=== PATIENT | male | born 1945 | race Caucasian/White ===

== ENCOUNTER 2020-02-03 14:24 | Outpatient (CLI) | payer MEDICARE, SELFPAY ==
--- NOTE | ~2020-02-03 | XR_ITS ---
EXAMINATION: XR foot LT min 3V DATE: 02/03/2020 14:39 INDICATION: Left first toe pain TECHNIQUE: Dorsoplantar, lateral, and 2 oblique views of the left foot were obtained. COMPARISON: None. FINDINGS: The bones are osteopenic which limits the sensitivity for fracture however none is seen. Th ere is mild polyarticular osteoarthritis. Mild soft tissue swelling is seen near the fifth toe. A uhmberto ntar calcaneal enthesophyte is noted. IMPRESSION: 1. No acute osseous abnormality. Reviewed, dictated and finalized at location A.
== END 2020-02-03 14:25 | disposition home or self-care (01) ==
LOC: ANHIMG 14:29
PROVIDERS: PCP Internal Medicine; Visit Provider Internal Medicine
DX: M79.676 Pain in unspecified toe(s) (principal)
CPT/HCPCS: 73630

== ENCOUNTER 2020-06-15 19:06 | Emergency (ER) | payer MEDICARE, SELFPAY ==
[2020-06-15] VITALS (7 sets, daily range): BP systolic 90–117; BP diastolic 51–60; PULSE 75–92; RESP 16–18; TEMP 36.7; O2SAT 99–100
--- NOTE | ~2020-06-15 | XR_ITS ---
EXAMINATION: XR chest 2V 06/15/2020 19:58 INDICATION: Syncope. PROCEDURE: 2 view chest COMPARISON: No prior studies for comparison. FINDINGS: The lungs are clear. The cardiomediastinal silhouette is within normal limits. There are no pleural effusions. There is no pneumothorax suspected. IMPRESSION: 1: NO ACUTE CARDIOPULMONARY DISEASE. Reviewed, dictated and finalized at location A.
[2020-06-15] MEDS: SODIUM CHLORIDE 0.9% IV 1,000 ML 999 ML IV CONT (19:37)
--- NOTE | 2020-06-15 19:44 | ECG_ITS ---
Measurements Intervals [place] Rate: 79 P: 48 DC: 169 QRS: 35 QRSD: 145 T: 8 QT: 363 QTc: 416 Interpretive Statements SINUS RHYTHM RIGHT BUNDLE BRANCH BLOCK ABNORMAL ECG Electronically Signed On 06-16-2020 12:19:51 CDT by Dex Dinh D.O.
[2020-06-15 20:05] LABS: Anion Gap 8 mmol/L (8-16); Blood Urea Nitrogen 30 mg/dL (9-20); Calcium 8.5 mg/dL (8.4-10.2); Carbon Dioxide 22 mmol/L (22-30); Chloride 104 mmol/L (98-107); Estimated Glomerular Filt Rate 59; Glucose 113 mg/dL (75-110); Potassium 4.1 mmol/L (3.4-5.0); Sodium 134 mmol/L (137-145)
[2020-06-15 20:32] LABS: Add Urine Microscopic? NO; Appearance Urine Clear (Clear); Bilirubin Urine Negative (Negative); Blood Urine Negative (Negative); Color Urine Yellow (Yellow); Glucose Urine UA Negative (Negative); Ketones Urine Negative (Negative); Leukocyte Esterase Ur Negative LEU/UL (Negative); Nitrate Urine Negative (Negative); Protein Urine Negative (Negative); Specific Grav Ur 1.018 (1.001-1.035); Urobilinogen Urine Negative mg/dL (<2.0)
[2020-06-15 20:59] LABS: Basophils Percent Auto 0.4 % (0.2-1.2); Eosinophils Absolute Auto 0.1 K/mm3 (0-0.3); Eosinophils Percent Auto 1.3 % (0-4.4); Hematocrit 33.5 % (42.0-52.0); Hemoglobin 11.3 g/dL (14.0-18.0); Immature Granulocyte Absolute 0.06 K/mm3 (0.00-0.031); Immature Granulocyte Percent A 0.6 % (0-0.5); Lymphocytes Percent Auto 9.6 % (18.3-44.2); Mean Corpuscular HGB Conc 33.7 g/dl (32-36); Mean Corpuscular Hemoglobin 32.1 pg (26-34); Mean Corpuscular Volume 95.2 fl (80-100); Mean Platelet Volume 10.2 fl (7.4-10.4); Monocytes Absolute Auto 0.8 K/mm3 (0.1-0.6); Monocytes Percent Auto 7.4 % (2.6-8.5); Neutrophils Absolute Auto 8.4 K/mm3 (1.3-6.7); Neutrophils Percent Auto 80.7 % (45.5-73.1); Platelet Count Result 124 k/mm3 (150-375); Red Blood Count 3.52 M/mm3 (4.6-6.20); Red Cell Distribution Width 13.4 % (11.5-14.5); White Blood Count 10.4 K/mm3 (4.5-10.0)
--- NOTE | 2020-06-15 21:16 | ED.SYNCOPE ---
HPI - Syncope General Chief Complaint: Syncope Stated Complaint: syncope Time Seen by Provider: 06/15/20 19:17 History of Present Illness HPI narrative: Patient is a 75-year-old male who presents ER with syncope. Patient was just discharged from [facility] today after having a right knee replacement. Patient has walked into his house when he reported to his that he got lightheaded. Patient then sat on a chair and lost consciousness. This reoccurred further times while sitting in the chair. Patient does not remember this occurring he remembers up waking up to EMS with them telling him that he had passed out. He has no chest pain or shortness of breath. He is in no distress at this time. Reports some right knee pain related to the surgery and he is not taking his pain medication. Today he walked with physical therapy 150 feet and then a second time 120 feet. Reports eating a small meal for breakfast and lunch with a couple of small drinks. Has not had any IV fluids since yesterday. Related Data Allergies Allergy/AdvReac Type Severity Reaction Status Date / Time Penicillins Allergy Unknown Unknown Verified 09/07/19 08:14 BENAZEPRIL HCL Allergy Unknown Uncoded 09/07/19 08:14 TERAZOSIN HCL Allergy Unknown Uncoded 09/07/19 08:14 Review of Systems Review of Systems: All systems reviewed & are unremarkable except as noted in HPI and below Constitutional: Constitutional: Denies chills, Denies fever(s) and Denies weakness ENT: Denies nasal congestion and Denies sore throat Cardiovascular: Cardiovascular: Denies chest pain, Denies rapid heart rate and Denies radiating jaw, neck or arm pain Respiratory: Respiratory: Denies cough, Denies dyspnea and Denies wheezing Neurologic: Reports syncope, Denies headache(s), Denies focal weakness and Denies numbness PMFSH Past Medical History Medical History (Updated 06/15/20 @ 22:35 by Berlin Nye MD) Gout Hypercholesterolemia Hypertension Surgical History Surgical History (Updated 06/15/20 @ 21:18 by Berlin Nye MD) History of total bilateral knee replacement Social History Social History Smoking status: Never smoker Alcohol intake: never Gender identity (if verbalized by the patient): Male Exam Narrative: Exam Narrative: GENERAL: Well-appearing, well-nourished, and in no acute distress. HEAD: Normocephalic, atraumatic. ENT: Mucous membranes moist. CHEST: Clear to auscultation. No respiratory distress. HEART: Regular rate and rhythm. Normal peripheral pulses. ABDOMEN: Soft, nontender, nondistended. EXTREMITIES: Compression stockings bilateral lower extremities with slightly increased edema right compared to left. Normal range of motion bilateral upper extremities. Deferred to her lower extremity due to recent surgery. SKIN: Warm, dry, no rash. NEURO: Alert and oriented x3. Course Course Emergency Course: Patient was orthostatic. Much better after IV fluid. Requests to go home. No chest pain or shortness of breath. Will discharge at this time. Needs follow-up with PCP Vital Signs Vital signs: Vital Signs Temperature 98.1 F 06/15/20 19:09 Pulse Rate 85 06/15/20 19:09 Respiratory Rate 16 06/15/20 19:09 Blood Pressure 117/52 L 06/15/20 19:09 Pulse Oximetry 99 06/15/20 19:09 Temperature 98.1 F 06/15/20 19:09 Pulse Rate 81 06/15/20 22:23 Respiratory Rate 18 06/15/20 22:08 Blood Pressure 112/52 L 06/15/20 22:23 Pulse Oximetry 100 06/15/20 22:08 MDM - Syncope Lab Data Result diagrams: 06/15/20 20:54 06/15/20 19:48 Labs: Lab Results 06/15/20 06/15/20 06/15/20 Range/Units 19:48 20:24 20:54 WBC 10.4 H (4.5-10.0) K/mm3 RBC 3.52 L (4.6-6.20) M/mm3 Hgb 11.3 L (14.0-18.0) g/dL Hct 33.5 L (42.0-52.0) % MCV 95.2 (80-100) fl MCH 32.1 (26-34) pg MCHC 33.7 (32-36) g/dl RDW 13
== END 2020-06-15 23:10 | disposition home or self-care (01) ==
PROVIDERS: Emergency Provider Emergency Medicine; PCP Internal Medicine
DX: I95.1 Orthostatic hypotension (principal); Z96.653 Presence of artificial knee joint, bilateral; M10.9 Gout, unspecified; E78.00 Pure hypercholesterolemia, unspecified; I10 Essential (primary) hypertension; I45.10 Unspecified right bundle-branch block
CPT/HCPCS: 36415; 71046; 80048; 81003; 85025; 93005; 96360; 96361; 99283; J7030

== ENCOUNTER → 2021-06-18 07:32 | Outpatient (REF) | payer MEDICARE, SELFPAY | LOC: ANHLAB 07:32 | PROVIDERS: PCP Internal Medicine; Visit Provider Nurse Practitioner | DX: C44.311 Basal cell carcinoma of skin of nose (principal) | CPT/HCPCS: 88305; 88331 ==

== ENCOUNTER 2021-12-27 11:00 | Outpatient (CLI) | payer MEDICARE, SELFPAY ==
--- NOTE | ~2021-12-27 | US_ITS ---
EXAMINATION: US carotid duplex BI DATE: 12/27/2021 12:05 INDICATION: Other specified symptoms and signs involving the circulatory system. TECHNIQUE: Grayscale, color Doppler, and pulsed Doppler images of the cervical carotid arteries were obtained. The degree of vessel stenosis is placed in one of the following categories: normal, <50%, 5 0-69%, >=70% but less than near-occlusion, near-occlusion, or total occlusion. Note that percent sten osis relative to normal distal artery lumen diameter is indirectly measured from velocity measurement s as described by Cristo, et al. Radiology 2003; 229:340-346. COMPARISON: None. FINDINGS: RIGHT: The right common carotid artery (CCA) peak systolic velocity (PSV) is 149 cm/s. The right internal ca rotid artery (ICA) PSV is 165 cm/s. The right ICA end-diastolic velocity (EDV) is 15 cm/s. The right ICA/CCA PSV ratio is 1.1. Grayscale and color Doppler images yield an estimate of >=50% diameter redu ction from plaque in the ICA. There is antegrade flow in the right vertebral artery. LEFT: The left CCA PSV is 141 cm/s. The left ICA PSV is 69 cm/s. The left ICA EDV is 26 cm/s. The left ICA/ CCA PSV ratio is 0.5. Shadowing plaque obscures the ICA lumen. There is antegrade flow in the left ve rtebral artery. IMPRESSION: 1. 50-69% stenosis in the right internal carotid artery. 2. <50% stenosis in the left internal carotid artery. Reviewed, dictated and finalized at location A. 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
== END 2021-12-27 11:01 | disposition home or self-care (01) ==
PROVIDERS: PCP Internal Medicine; Visit Provider Nurse Practitioner
DX: R09.89 Other specified symptoms and signs involving the circulatory and respiratory systems (principal); I65.23 Occlusion and stenosis of bilateral carotid arteries
CPT/HCPCS: 93880

== ENCOUNTER 2022-07-08 14:13 | Outpatient (NON) | payer MEDICARE, SELFPAY | END 2022-07-08 14:14 | disposition home or self-care (01) | LOC: ANHLAB 14:14 | PROVIDERS: PCP Internal Medicine; Visit Provider Nurse Practitioner | DX: C44.329 Squamous cell carcinoma of skin of other parts of face (principal) | CPT/HCPCS: 88305; 88331 ==

== ENCOUNTER 2022-11-18 09:00 | Outpatient (NON) | payer MEDICARE, SELFPAY | END 2022-11-18 09:01 | disposition home or self-care (01) | LOC: ANHLAB 11-20 12:13 | PROVIDERS: PCP Internal Medicine; Visit Provider Nurse Practitioner | DX: C44.329 Squamous cell carcinoma of skin of other parts of face (principal) | CPT/HCPCS: 88304 ==

== ENCOUNTER 2022-11-18 11:47 | Outpatient (NON) | payer MEDICARE, SELFPAY | END 2022-11-18 11:48 | disposition home or self-care (01) | LOC: ANHLAB 11:48 | PROVIDERS: PCP Internal Medicine; Visit Provider Nurse Practitioner | DX: C44.319 Basal cell carcinoma of skin of other parts of face (principal) | CPT/HCPCS: 88304; 88305; 88331 ==

== ENCOUNTER 2023-07-14 08:50 | Outpatient (CLI) | payer MEDICARE, SELFPAY ==
--- NOTE | ~2023-07-14 | US_ITS ---
EXAMINATION: US carotid duplex BI DATE: 07/14/2023 09:37 INDICATION: Carotid occlusion TECHNIQUE: Grayscale, color Doppler, and pulsed Doppler images of the cervical carotid arteries were obtained. The degree of vessel stenosis is placed in one of the following categories: normal, <50%, 5 0-69%, >=70% but less than near-occlusion, near-occlusion, or total occlusion. Note that percent sten osis relative to normal distal artery lumen diameter is indirectly measured from velocity measurement s as described by Cristo, et al. Radiology 2003; 229:340-346. Notes: Normal: Peak systolic velocity <125 centimeters/sec and no plaque <50%. Peak systolic velocity <125 ( EDV <40; ICA/CCA PSV ratio <2.0; used these factors only a tandem lesions or low cardiac output or co ntralateral disease) 50-69 %: PSV 125-230 (EDV 40-100; ratio 2-4) >= 70% but less than near occlusion: PSV greater than 230 (EDV > 100; ratio> 4.0) Near Occlusion: PSV that is variable; markedly narrowed lumen Occlusion: Absent flow on color/spectral Doppler and no lumen on galvez scale. COMPARISON: Ultrasound dated 12/27/2021. FINDINGS: RIGHT: The right common carotid artery (CCA) peak systolic velocity (PSV) is 142 cm/s. The right internal ca rotid artery (ICA) PSV is 181 cm/s. The right ICA end-diastolic velocity (EDV) is 19 cm/s. The right ICA/CCA PSV ratio is 1.3. The external carotid artery (ECA) PSV is 156 cm/s. There is antegrade flow in the right vertebral artery. LEFT: The left CCA PSV is 120 cm/s. The left ICA PSV is 69 cm/s. The left ICA EDV is 17 cm/s. The left ICA/ CCA PSV ratio is 0.6. The ECA PSV is 207 cm/s. There is antegrade flow in the left vertebral artery. IMPRESSION: 1. 50-69% stenosis in the right internal carotid artery by sonographic criteria. 2. Less than 50% stenosis in the left internal carotid artery by sonographic criteria. Reviewed, dictated and finalized at location B. IMPRESSION: 1. 50-69% stenosis in the right internal carotid artery by sonographic criteria . 2. Less than 50% stenosis in the left internal carotid artery by sonographic cr iteria.
== END 2023-07-14 08:51 | disposition home or self-care (01) ==
PROVIDERS: PCP Nurse Practitioner; Visit Provider Nurse Practitioner
DX: I65.23 Occlusion and stenosis of bilateral carotid arteries (principal)
CPT/HCPCS: 93880

== ENCOUNTER 2024-09-30 13:44 | Outpatient (CLI) | payer MEDICARE, SELFPAY ==
[2024-09-30 14:49] LABS: Influenza A QL RT-PCR Negative (Negative); Influenza B QL RT-PCR Negative (Negative); RSV RNA, RT-PCR Negative (Negative); SARS-CoV-2 RNA PCR Negative (Negative)
== END 2024-09-30 13:45 | disposition home or self-care (01) ==
PROVIDERS: PCP Internal Medicine; Visit Provider Internal Medicine
DX: J06.9 Acute upper respiratory infection, unspecified (principal); Z20.822 Contact with and (suspected) exposure to COVID-19
CPT/HCPCS: 87637

== ENCOUNTER 2025-02-11 22:30 | Emergency (ER) | payer MEDICARE, SELFPAY ==
[2025-02-11] VITALS (10 sets, daily range): BP systolic 75–97; BP diastolic 46–62; PULSE 103–137; RESP 23–32; TEMP 36.8; O2SAT 96–99
--- NOTE | ~2025-02-11 | CT_ITS ---
EXAMINATION: CT brain wo con DATE: 02/12/2025 00:42 INDICATION: Syncope. Lung cancer with metastasis. TECHNIQUE: Computed tomography (CT) of the head was performed without intravenous contrast. Sagittal and coronal reconstructions were performed. The mA was adjusted according to patient size. Iterative reconstruction technique was employed. The dose-length product was 681.00 mGy-cm. COMPARISON: None FINDINGS: There is vasogenic edema in the anterior left frontal lobe surrounding a 3.6 x 3.2 cm in intra-axial mass with irregular peripheral rim of high attenuation which hemorrhage cannot be excluded. There is additional moderate scattered white matter hypoattenuation which could represent chronic small vessel ischemic disease but also raises possibility of additional vasogenic edema related to possible addit ional occult metastatic lesions, the most suspicious region in the left occipital lobe where there ap pears be some local mass effect with effacement of gyri. No acute infarction or abnormal extra axial fluid collection. Symmetric prominence of the sulci consistent with mild age-appropriate diffuse cere bral volume loss. Ventricles are normal and symmetric. Changes of bilateral intraocular lens replac ement. The orbits, paranasal sinuses and mastoid air cells are normal. IMPRESSION: 1. Vasogenic edema in the left frontal lobe surrounding a 3.6 cm mass concerning for metastatic disea se in this patient with known metastatic lung cancer. Could not exclude a small amount of intraparen chymal hemorrhage at the periphery of the mass. 2. Additional scattered patchy regions of white matter hypoattenuation which could relate to chronic small vessel ischemic disease or additional occult metastases the most suspicious in the left occipit al lobe. Could consider further evaluation with pre and postcontrast MRI or CT as clinically indicate d. Reviewed, dictated and finalized at location A. IMPRESSION: 1. Vasogenic edema in the left frontal lobe surrounding a 3.6 cm mass concernin g for metastatic disease in this patient with known metastatic lung cancer. Cou ld not exclude a small amount of intraparenchymal hemorrhage at the periphery of the mass. 2. Additional scattered patchy regions of white matter hypoattenuation which co uld relate to chronic small vessel ischemic disease or additional occult metast ases the most suspicious in the left occipital lobe. Could consider further madhu luation with pre and postcontrast MRI or CT as clinically indicated.
--- NOTE | ~2025-02-11 | XR_ITS ---
XR chest 1V portable Ordering provider: Sarath Berkowitz MD History: 79 years Male with . cp . Comparison: June 15, 2020 FINDINGS: MEDIASTINUM: The cardiac silhouette is not enlarged. Right central line with the tip overlying superi or vena cava. LUNGS: No pneumothorax. Opacification in the right lung base suggestive of pneumonia. Right pleural e ffusion is also noted. Prominent bronchovascular markings in the left lung base. OTHER: No free air under the diaphragm. IMPRESSION: Right basilar pneumonia with pleural effusion. Reviewed, dictated and finalized at location A.
--- NOTE | ~2025-02-11 | CT_ITS ---
EXAMINATION: CTA chest abdomen pelvis DATE: 02/12/2025 00:42 INDICATION: Abdominal aortic aneurysm TECHNIQUE: Computed tomographic angiography (CTA) of the chest, abdomen, and pelvis was performed wit hout and with 100 mL Omnipaque-350 intravenous contrast. Volume-rendered 3D-reconstructions of the ao rta and large arteries were constructed by the technologist on a separate workstation. Automated expo sure control and iterative reconstruction technique were employed. The dose-length product was 1650.9 1 mGy-cm. COMPARISON: None FINDINGS: Chest: There is right perihilar consolidation which extends into the posterior right lower lobe. There is co mplete collapse and consolidation in the right middle lobe with abrupt narrowing of the right middle lobar pulmonary artery and occlusion of the right middle lobar bronchus which is likely related to re ported lung cancer and/or treatment thereof. There is groundglass opacity throughout the remainder of the small right lower lobe as well as in the immediately adjacent posterior right upper lobe which c ould represent atelectasis, radiation pneumonitis or less likely pneumonia. Mild dependent atelectasi s in the left lower lobe. Although not performed as a dedicated pulmonary embolism protocol there no evident arterial filling defects to suggest pulmonary embolism. Heart size is normal. Atherosclerotic coronary artery calcification. Aortic valve calcification. Thoracic aorta is normal in caliber with no dissection. No pathologically enlarged thoracic lymphadenopathy. Age-indeterminate T4 compression fracture with 20% central vertebral body height loss. Abdomen and pelvis: Liver, gallbladder, pancreas and left adrenal gland are normal. 2.5 similar right adrenal nodule. Mul tiple splenic calcifications consistent with old granulomatous disease. There are bilateral renal cys ts measuring up to 2.5 cm and the left kidney. Fluid in the colon consistent with nonspecific diarrhe a. Small bowel and appendix are normal. Bladder is normal. 8.6 x 5.6 cm mass with lobular margins isiah tered in the pelvic mesentery. No free intraperitoneal gas or fluid. No pathologically enlarged abdom inal or pelvic lymphadenopathy. There is mild scattered calcified atherosclerosis without hemodynamic ally significant stenosis of the normal caliber aorta and many of the other arteries. Small fat-conta ining left inguinal hernia. Severe lumbar spondylosis. Lucent hemangioma at L3. Chronic appearing mil d compression fractures at L1 and L2. Sclerotic bone island at the right femoral head neck junction. IMPRESSION: 1. Right hilar/perihilar consolidation extending to the right lower lobe and with complete collapse o f the right middle lobe which would be consistent with reported lung cancer and/or radiation treatmen t thereof. Surrounding ground glass opacities in the right lower lobe and posterior right upper lobe could represent secondary atelectasis, radiation fibrosis or pneumonia. 2. 8.6 x 5.6 cm mass in the pelvic mesentery also concerning for malignancy. 3. 2.5 cm right adrenal nodule which could be due to metastatic disease or adenoma. 4. Fluid in the colon consistent with nonspecific diarrhea. Reviewed, dictated and finalized at location A. IMPRESSION: 1. Right hilar/perihilar consolidation extending to the right lower lobe and wi th complete collapse of the right middle lobe which would be consistent with re ported lung cancer and/or radiation treatment thereof. Surrounding ground glass opacities in the right lower lobe and posterior right upper lobe could represe nt secondary atelectasis, radiation fibrosis or pneumonia. 2. 8.6 x 5.6 cm mass in the pelvic mesentery also concerning for malignancy. 3. 2.5 cm right adrenal nodule which could be due to metastatic disease or jake frederic. 4. Fluid in the colon consistent with nonspecific diarrhea.
--- NOTE | 2025-02-11 22:31 | ECG_ITS ---
Test Date: 2025-02-11 22:35:51 Measurements Intervals [place] Rate: 135 P: 0 HI: 0 QRS: 42 QRSD: 134 T: 39 QT: 304 QTc: 456 Interpretive Statements SINUS TACHYCARDIA WITH FREQUENT ATRIAL PREMATURE COMPLEXES RIGHT BUNDLE BRANCH BLOCK BASELINE ARTIFACT- I, II, III, AVR, AVL, AVF, V1-V3 ABNORMAL ECG No previous ECG available for comparison Electronically Signed On 02-12-2025 06:58:51 CDT by Dex Dinh D.O.
--- NOTE | 2025-02-11 22:40 | PC.NURSE ---
vrbo 1lns bolus edp zych
[2025-02-11] MEDS: SODIUM CHLORIDE 0.9% IV 1,000 ML 999 ML (22:42)
[2025-02-11 22:52] LABS: Hemoglobin 11.1 g/dL (14.0-18.0); Mean Corpuscular HGB Conc 30.8 g/dl (32-36); Mean Corpuscular Hemoglobin 32.5 pg (26-34); Mean Corpuscular Volume 105.3 fl (80-100); Mean Platelet Volume 10.2 fl (7.4-10.4); Platelet Count Result 176 k/mm3 (150-375); Red Blood Count 3.42 M/mm3 (4.6-6.20); Red Cell Distribution Width 16.7 % (11.5-14.5)
[2025-02-11 22:54] LABS: White Blood Count 66.8 K/mm3 (4.5-10.0)
--- NOTE | 2025-02-11 23:09 | PC.NURSE ---
vrbo dr ramos - 2 additional liters of ns wide open
[2025-02-11] MEDS: SODIUM CHLORIDE 0.9% IV 1,000 ML 999 ML IV CONT ×2 (23:10)
[2025-02-11 23:13] LABS: Troponin I < 0.012 ng/mL (0.000-0.034)
[2025-02-11 23:18] LABS: Band Neutrophils Percent 7 % (0-6); Basophils Absolute Manual 0.66 K/mm3 (0.0-0.1); Basophils Percent Manual 1 % (0-1); Lymphocytes Absolute Manual 8.01 K/mm3 (1.1-4.5); Monocytes Percent Manual 6 % (3-9); Myelocytes Percent 1 %; Neutrophils Absolute Manual 53.44 K/mm3 (1.3-6.7); Neutrophils Percent Manual 73 % (46-73); Platelet Estimate Adequate (Adequate); Total Cells Counted 100
[2025-02-11 23:19] LABS: Anisocytosis 1+; Atypical Lymphocytes Present; Burr Cells 1+; Large Platelets Present; Macrocytosis 1+ (NORMAL); Ovalocytes 1+; Schistocytes None Seen; Smudge Cells PRESENT
[2025-02-11 23:21] LABS: Alanine Aminotransferase 29 U/L (6-50); Albumin Level 3.5 g/dL (3.5-5.1); Alkaline Phosphatase 178 U/L (38-126); Anion Gap 25 mmol/L (4-12); Aspartate Amino Transferase 18 U/L (17-59); Bilirubin,Total 0.5 mg/dL (0.2-1.3); Blood Urea Nitrogen 27 mg/dL (9-20); Calcium 9.6 mg/dL (8.4-10.2); Carbon Dioxide 12 mmol/L (22-30); Chloride 97 mmol/L (98-107); Estimated CRCL calculation 43 ml/min; Estimated Glomerular Filt Rate 56; Glucose 319 mg/dL (65-110); Lipase 63 U/L (23-300); Potassium 3.9 mmol/L (3.4-5.0); Sodium 134 mmol/L (137-145)
--- OUTSIDE RECORDS SUMMARY | 2025-02-11 23:25 | XMS_ITS | Continuity of Care Document ---
Author Organization [facility] Address [address] [place] [address] Phone Care Team Providers Care Snowboard Instructor Name Role Phone Willie Bullock MD Unavailable Unavailable Allergies, Adverse Reactions, Alerts Substance Reaction Status Criticality CEFUROXIME AXETIL dizziness Active No Informa tion TERAZOSIN HCL Active No Information BENAZEPRIL HCL Active No Informatio n MOXIFLOXACIN HCL Active No Informat ion Penicillins Active No Information Medications Medication Instructions Dosage Effective Dates (start - stop) Status Comments Mobic 15 mg tablet Take 1 tablet by mouth daily with food - Active Zovirax 5 % topical cream - Active ProAir HFA 90 mcg/actuation aerosol inhaler - Active Tylenol Extra Strength 500 mg tablet - Active Flonase 50 mcg/actuation nasal spray,suspension - Active CRESTOR (unknown strength) Not Available - Active TRIAMTERENE-HYDROC HLOROTHIAZID (unknown strength) Not Available - Active LISINOPRIL (unknown strength) Not Available - Active Procedures Procedure Date OFFICE/OUTPATIENT VISIT EST OFFICE/OUTPATIENT VISIT EST POSTOP FOLLOW-UP VISIT POSTOP FOLLOW-UP VISIT POSTOP FOLLOW-UP VISIT OFFICE/OUTPATIENT VISIT EST OFFICE/OUTPATIENT VISIT EST Advance Directives Directive Yes / No Effective Date File Name No Information Encounters Encounter Description Practice Location Reason(s) For Visit Diagnoses Date Provider Providers Copied on Encounter [facility], [address], [place], [address], [place] tel:[phone] [facility] No Information 7 Kobe Tapia. [address], [place], [place], [id number] . tel: [phone] OFFICE/OUTPA TIENT VISIT EST [facility], [address] [place] [address], [place], [address], [place] tel:[phone] [facility] Follow Up of L knee hemiarthropl asty (chief complaint) Status post left partial knee replacement 5 Matheus Lerner. [address], [place], [place], [id number] . tel: [phone] OFFICE/OUTPA TIENT VISIT [facility], [address] [place] [address], [place], [address], [place] tel:[phone] [facility] Status post left partial knee replacement 5 Matheus Lerner. [address], [place], [place], [id number] . tel: [phone] [facility], [address] [place] [address], [place], [address], [place] tel:[phone] [facility] Status post left partial knee replacement 4 Matheus Lerner. [address], [place], [place], [id number] . tel: [phone] [facility], [address] [place] [address], [place], [address], [place] tel:[phone] [facility] Follow Up of l uni knee (chief complaint) History of total knee replacement 4 Matheus Lerner. [address], [place], [place], [id number] . tel: [phone] [facility], [address] [place] [address], [place], [address], [place] tel:[phone] [facility] History of total knee replacement 4 Matheus Lerner. [address], [place], [place], [id number] . tel: [phone] [facility], [address] [place] [address], [place], [address], [place] [phone] [facility] Follow Up of l partial knee replacement (chief complaint) No Information 4 Matheus Lerner. [address], [place], [place], [address] . tel: [phone] [facility], [address] [place] [address], [place], [address], [place] tel:[phone] [facility] No Information 4 Matheus Lerner. [address], [place], [place], [id number] . tel: [phone] OFFICE/OUTPA TIENT VISIT EST [facility], [address] [place] [address], [place], [address], [place] [phone] [facility] Follow Up of oa l knee (chief complaint) Primary localized osteoarthros is, lower leg 4 Matheus Lerner. [address], [place], [place], [address] . tel: [phone] Referring Provider: Callum Duckworth, [address], [place], [address]. tel:[phone] [facility], [address] [place] [address], [address], [place] [phone] [facility] Encounter for long-term (current) use of other med Nov- 4 Matheus Lerner. [address], [place], [place], [address] . tel: [phone] OFFICE/OUTPA TIENT VISIT EST [facility], [address] [place] [address], [address], [place] [phone] [facility] Primary localized osteoarthros is, lower leg Nov- 4 Matheus Lerner. [address], [place], [place], [address] . tel: [phone] Family History Family Member Type Diagnosis Age At Onset Mother Problem (finding) Mother Problem (finding) non hodgkins lymphoma ( Cause Of ) 70 Payers Payer name Insurance type Covered republican ID Mckenzie fair(s) Medicare E2 OT [id number] [employer] OT [id number] Social History Type Description Quantity Date Captured Comments Sex Male Smoking Status No Information Chief Complaint And Reason For Visit No Information Reason For Referral Reason For Referral No Information Plan Of Treatment Date Type Action Status Referral Ordered: RADEX KNE 1/2 VIEWS LT ordered Referral Ordered: RADEX KNE 3 VIEWS LT ordered Referral Ordered: MANUAL APPL STRESS PFRMD PHYS JOINT RADIOGRAPHY LT ordered History Of Present Illness Encounter Date Complaint History Of Prese nt Illness Follow Up of L knee hemiarthropl asty Follow Up of l uni knee Follow Up of l partial knee repl acement Follow Up of oa l knee Functional Status Date Functional Assessmen t No Information Instructions Date Instruction Additional Infor mation Take medications as ordered Rela paty to Status post left partial knee replacement Activity as tolerated Related to Status post left partial knee replacement Take antibiotics as directed for dental work. Related to Status post left partial knee replacement Assessments Type Assessment Date No Information Patient Care Teams Name Effective Dates (start - stop) Status Members No Information
--- OUTSIDE RECORDS SUMMARY | 2025-02-11 23:25 | XMS_ITS | Encounter Summary ---
Author Organization [facility] Address [address] [place] [address] Care Team Providers Care Regroover Name Role Phone Brenda Woods RN Unavailable Braeden Valdovinos DO Primary Care Provider [phone] Encounter Details Date Type Department Care Team (Late st Contact Info) Description 04/02/2021 Lab Requisition [facility] [address] [facility], [place] [place] [address] Darvin Rawls MD [address] [place] [address] Social History Tobacco Use Types Packs/Day Years Used Date Smoking Tobacco: Never Smokeless Tobacco: Never Alcohol Use Standard Drinks/Week Comments No 0 (1 standard drink = 0.6 oz pur e alcohol) Sex and Gender Information Value Date Recorded Sex Assigned at Not on file Legal Sex Male 6:58 AM CDT Gender Identity Not on file Sexual Orientation Not on file documented as of this encounter Functional Status * Is person deaf or have serious hearing difficulty? Answer Date of Assessment Author No 06/22/2014 10:54 AM Tea Forrest RN * Is person blind or have serious difficulty seeing? Answer Date of Assessment Author No 06/22/2014 10:54 AM Tea Forrest RN * Does person have serious difficulty walking/climbing stairs? Answer Date of Assessment Author Yes 06/22/2014 10:54 AM CDT Tea Larios RN * Does person have difficulty dressing/bathing? Answer Date of Assessment Author No 06/22/2014 10:54 AM LEWIST Tea Larios RN * Does person have difficulty doing errands alone? Answer Date of Assessment Author No 06/22/2014 10:54 AM LEWIST Tea Larios RN documented as of this encounter Mental Status * Does person have difficulty concentrating/remembering/making decisions? Answer Entry Date Author No 06/22/2014 10:54 AM CDT Tea Larios RN documented in this encounter Plan of Treatment Not on file documented as of this encounter Procedures Procedure Name Priority Date/Time Associated Diagnosis Comments DERMATOPATHOLOGY Routine 03/29/2021 3:33 AM CDT documented in this encounter Results * DERMATOPATHOLOGY (03/29/2021 3:33 AM CDT) Case Report Dermatopathology Report Case: [id number] Authorizing Provider: Darvin Rawls MD Collected: 03/29/2021 03:33 AM Ordering Location: [facility] Received: 04/02/2021 06:00 AM Pathologist: Fatmata Carr MD Specimens: A) - Skin, mid chest B) - Skin, nasal dorsum 3:00 PM CDT DERMATOPATHOLOGY LABORATORY Final Diagnosis Specimen A. SKIN, mid chest: BENIGN VERRUCOUS KERATOSIS, INFLAMED (L82.1) Specimen B. SKIN, nasal dorsum: BASAL CELL CARCINOMA (C44.311) (see microscopic description and comment) 3:00 PM CDT DERMATOPATHOLOGY LABORATORY Clinical History A: BCCA vs SCCA. Path#[id number] B: BCCA vs CCA. Path#[id number] 3:00 PM CDT DERMATOPATHOLOGY LABORATORY Gross Description Specimen A: Received is one formalin filled container labeled with the patient's name and designated mid chest. The specimen consists of a shave biopsy measuring 10x9x3 mm. Jar 0. Specimen B: Received is one formalin filled container labeled with the patient's name and designated nasal dorsum. The specimen consists of a shave biopsy measuring 6x5x1 mm. Jar 0. 1 3:00 PM T DERMATOPATHOLOGY LABORATORY Microscopic Description Specimen A. SKIN, mid chest: Sections show hyperkeratosis, papillomatosis, hypergranulosis, and acanthosis. Inflammatory cells are present within the dermis. These histological findings can be seen in a verruca vulgaris or a seborrheic keratosis. Specimen B. SKIN, nasal dorsum: The specimen consists of aggregates of basaloid cells, located within the superficial dermis, with high nuclear to cytoplasmic ratio and peripheral palisading. COMMENT: The small size of the specimen limits subtyping of the lesion. 1 3:00 PM T DERMATOPATHOLOGY LABORATORY Disclaimer An external and internal positive and negative controls are appropriate for the histochemical, immunohistochemical and immunofluorescence stain(s) in this case (if any), except where stated explicitly. The performance characteristics of the stain(s) cited in this report were developed and its performance characteristic determined by the Dermatopathology Laboratory at [facility], directed by Dr. Gregg Carr. These tests need not be, and therefore are not, approved by the [place] Food and Drug Administration. The tests are used for clinical purposes. Billing Codes Specimen Charges Stain Charges 26961 10602 1 1 1 3:00 PM CDT DERMATOPATHOLOGY LABORATORY Embedded Images 1 3:00 PM CDT DERMATOPATHOLOGY LABORATORY Pathology/Cytology TISSUE SPECIMEN FROM SKIN / Unknown 03/29/2021 3:33 AM CDT 04/02/2021 6:00 AM CDT Miscellaneous samples (specimen) TISSUE SPECIMEN FROM SKIN / Unknown 03/29/2021 3:33 AM CDT 04/02/2021 6:00 AM CDT us Darvin Rawls MD LAB - PATHOLOGY/CYTOLOGY ORDER VINICIO Final Result DERMATOPATHOLOGY LABORATORY [facility] - Department of Dermatology [address], [address] [phone] documented in this encounter Visit Diagnoses Not on filedocumented in this encounter Care Teams Regroover Relationship Specialty Start Date End Date Braeden Valdovinos DO [address] [place] [address] PCP - General 04/24/20 Brenda Woods, RN Ceiling Cleaner 06/23/14 documented as of this encounter
--- OUTSIDE RECORDS SUMMARY | 2025-02-11 23:25 | XMS_ITS | Encounter Summary ---
Author Organization [facility] Address [address] [place] [address] Care Team Providers Care Shipping Order Clerk Name Role Phone Brenda Woods RN Unavailable rBaeden Valdovinos DO Primary Care Provider [phone] Encounter Details Date Type Department Care Team (Late st Contact Info) Description 05/04/2020 Lab Requisition [facility] [address] [facility], [place] [id number] Darvin Rawls MD [address] [facility] [place] [address] Social History Tobacco Use Types Packs/Day Years [...] Entry Date Author No 06/22/2014 10:54 AM LEWIST Tea Larios RN documented in this encounter Plan of Treatment Not on file documented as of this encounter Procedures Procedure Name Priority Date/Time Associated Diagnosis Comments DERMATOPATHOLOGY Routine 05/03/2020 12:0 0 AM CDT documented in this encounter Results * DERMATOPATHOLOGY (05/03/2020 12:00 AM CDT) Case Report Dermatopathology Report Case: [id number] Authorizing Provider: Darvin Rawls MD Collected: 05/03/2020 12:00 AM Ordering Location: [facility] Lab Received: 05/04/2020 07:24 AM Pathologist: Fatmata Carr MD Specimen: Skin, right medial clavicle 0 4:51 PM CDT DERMATOPATHOLOGY LABORATORY Final Diagnosis Specimen A. SKIN, right medial clavicle: PIGMENTED SEBORRHEIC KERATOSIS, INFLAMED (L82.1) 0 4:51 PM CDT DERMATOPATHOLOGY LABORATORY Clinical History Nevus vs SK vs MM. Path# [id number] 0 4:51 PM CDT DERMATOPATHOLOGY LABORATORY Gross Description Specimen A: Received is one formalin filled container labeled with the patient's name and designated right medial clavicle. The specimen consists of a shave biopsy measuring 13n03w1 mm. Jar 0. 0 4:51 PM CDT DERMATOPATHOLOGY LABORATORY Microscopic Description Specimen A. SKIN, right medial clavicle: Sections show an acanthotic lesion composed of relatively uniform keratinocytes. There is hyperkeratosis and pseudo horn cysts. Pigment is present in the keratinocytes composing this tumor. 0 4:51 PM CDT DERMATOPATHOLOGY LABORATORY Disclaimer An external and internal positive and negative controls are appropriate for the histochemical, immunohistochemical and immunofluorescence stain(s) in this case (if any), except where stated explicitly. The performance characteristics of the stain(s) cited in this report were developed and its performance characteristic determined by the Dermatopathology Laboratory at [facility], directed by Dr. Gregg Carr. These tests need not be, and therefore are not, approved by the [place] Food and Drug Administration. The tests are used for clinical purposes. Billing Codes Specimen Charges Stain Charges 02171 1 0 4:51 PM CDT DERMATOPATHOLOGY LABORATORY Embedded Images 0 4:51 PM CDT DERMATOPATHOLOGY LABORATORY Pathology/Cytolog y TISSUE SPECIMEN FROM SKIN / Unknown 05/03/2020 05/04/2020 7:24 AM CDT Darvin Rawls MD LAB - PATHOLOGY/CYTOLOGY ORDER VINICIO Final Result Performing Organization Address City/State/[facility] Co de Phone Number DERMATOPATHOLOGY LABORATORY [facility] - Department of Dermatology [facility]/[address] [phone] documented in this encounter Visit Diagnoses Not on filedocumented in this encounter Additional Health Concerns Infection Onset Date Last Indicated Resolved Time COVID-19 Under Investigation 06/09/2020 06/09/2020 06/09/2020 10:32 PM CDT documented as of this encounter Care Teams Shipping Order Clerk Relationship Specialty Start Date End Date Braeden Valdovinos DO [address] [place] [address] PCP - General 04/24/20 Brenda Woods, RN [employer]mo Business Analyst 06/23/14 documented as of this encounter
[2025-02-11 23:26] LABS: INR 1.2; Prothrombin Time 15.5 Seconds (11.1-14.7)
--- OUTSIDE RECORDS SUMMARY | 2025-02-11 23:26 | XMS_ITS ---
Author Organization [facility] Address [address] [place] [address] Care Team Providers Care Meat Selector Name Role Phone Carlyle Rawls MD Unavailable [phone] Jake Payne MD Unavailable [phone] Braeden Valdovinos DO Unavailable Braeden Valdovinos DO Primary Care Provider [phone] Kevin Lerner MD Unavailable [phone] Active Problems Patient Care Coordination No te Formatting of this note migh t be different from the original. Blanche Marrero 1945 78-year-old male who is referred here today by [facility]. He is a lifelong nonsmoker, however, grew up with stepfather smoking 2 ppd inside the home. He is a past medical history of allergic rhinitis, arthritis, asthma, GERD, hypertension, and skin cancer. His oncologic history is outlined below. DIAGNOSIS / COMPLETION / TREATMENT / CHIEF COMPLAINT: Right forehead well-differentiated squamous cell carcinoma -resection and primary closure, 07/08/2022 (Dr. Berry) Right lateral brow infiltrative basal cell carcinoma -wide local resection and primary closure, 11/18/2022 (Dr. Berry) Multifocal recurrence in right cheondoism and forehead -incisional biopsy right cheondoism 11/18/2022 (Dr. Berry) -scalp resection, right cheondoism resection, local facial advancement snail flap, 12/26/2022 (Dr. Alberts) -postoperative radiation completed 03/19/23 (Dr. Payne) He is here today to discuss CT scan findings of an enlarging right middle lobe pulmonary nodule concerning for a primary lung cancer. He was evaluated by radiology and it was decided the nodule was too deep for a lung biopsy. He spoke with radiation oncology who indicated this nodule is treatable with SBRT, however, the patient is unsure he wants to have radiation without having an idea of what this nodule is. He is here today for further evaluation and discussion. 1.) Contrast CT scan of the chest performed at the center dated 06/26/2023- COMPARISON: PET/CT from 12/13/2022 FINDINGS: 1.5 cm x 1 cm solid spiculated nodule within the right middle lobe (table position -322.3) which is enlarged from prior PET/CT. Additional sub-6 mm nodules within the lingula and right middle lobe which are unchanged. No pneumothorax or pleural effusion. Heart size is normal without pericardial effusion. Severe coronary vascular calcifications. Normal caliber great vessels. No suspicious supraclavicular, mediastinal, or axillary lymphadenopathy. Imaged thyroid is normal. Nondilated esophagus. The imaged upper abdomen is unremarkable. No suspicious osseous lesions. IMPRESSION: 1. Enlarging solid spiculated nodule within the right middle lobe most consistent with primary pulmonary malignancy. 2. Additional stable benign-appearing sub-6 mm pulmonary nodules. 2.) CT soft tissue neck performed at the neck and head performed at this center dated 06/26/2023- IMPRESSION: 1. Postsurgical changes of right temporal skin lesion surgical resection, flap reconstruction with no CT evidence of recurrent disease. 2. No cervical lymphadenopathy. 3. Bilateral carotid artery bifurcation atherosclerosis with at least 50% right carotid artery bifurcation stenosis, at least high grade stenosis of the left carotid artery bifurcation. 3.) PET scan performed at this center dated 12/13/2022- IMPRESSION: 1. Intense focal uptake associated with 1 cm skin and subcutaneous lesion along the right cheondoism (axial image 50/374) most compatible with residual or recurrent biopsy-proven malignancy. 2. Asymmetric moderate uptake in the medial right cervical region at the level of C3 is not well evaluated on concurrent noncontrast CT due to extensive streak artifact from dental restorations. However, when correlated with same day contrast-enhanced CT neck, this is favored to be degenerative in etiology with no suspicious osseous lesion or soft tissue correlate appreciated. 3. Otherwise, no suspicious additional focal FDG activity to suggest locoregional or distant metastatic disease. 4. Bilateral indeterminate renal lesions, which could be further evaluated with short-term follow-up renal ultrasound or renal protocol MRI if prior comparisons are not available. Recommend follow up of the Incidental renal nodule Additional Imaging In 12 Months with renal ultrasound or renal MRI. 5. Indeterminate bilateral subcentimeter pulmonary nodules measuring up to 6 mm in the lingula, which are too small to be evaluated by FDG PET. If the patient is high risk for development of lung cancer, this could be further evaluated with chest CT in 12 months. If the patient is low risk for development of blunting cancer, this could be further evaluated with optional CT in 12 months. Recommend follow up of the incidental lung nodule additional imaging in [address]. Problem Noted Date Diagnosed Date Malignant neoplasm metastatic to brain Encounter for person encountering health service s 01/04/2025 Dehydration 08/25/2024 Malignant neoplasm of overlapping sites of right lung 07/12/2024 Cancer Staging:Clinical stage from 07/12/2024:Stage IIIA(cT4, cN0, cM0) - Signed by Jake Payne MD on 07/12/2024 Brow ptosis, right 09/04/2023 Pulmonary nodule 08/05/2023 Squamous cell carcinoma of head and neck 023 Overview (12/20/2022): Added automatically from request for surgery [id number] Current Treatment and Therapy Plans DOCEtaxel 21 Day Cycles - Non-Small Cell Lung* Plan Start Date:12/22/2024 Plan Provider:Kevin Lerner MD Linked Problems Malignant neoplasm of overla pping sites of right lung (HCC)Squamous cell carcinoma of head and neckEncounter for person encountering health services Treatment Medications Current Day (Day 1 , Cycle 3 - Planned for 02/16/2025) Next Day (Day 2, Cycle 3 - Planned for 02/17/2025) dexAMETHasone (DECADRON)DOCEtaxel (TAXOTERE)DOCEtaxel (TAXOTERE) IVPB in 250 mL (vial 20mg/mL) DOCEtaxeL (TAXOTERE) 128 mg in sodium chloride 0.9% (PVC-FREE) 250 mL IVPB No medications scheduled. Hydration Therapy Plan* Plan Start Date:08/25/2024 Plan Provider:Kevin Lerner MD Linked Problems DehydrationMalignant neoplas m of overlapping sites of right lung (HCC) Treatment Medications No medications scheduled. Past Treatment and Therapy Plans Oncology Chemotherapy Treatment Plan Name Start Date Discontinue Date Treatment Medications Discontinue Reason Plan Provider Cycles Cemiplimab 21 Day Cycles - Cutaneous Squamous Cell Carcinoma 5 12/22/2024 cemiplimab-rwlc (LIBTAYOO) Provider Discretion Kevin Lerner MD 1 of 6 cycles started PACLItaxel / CARBOplatin with Concurrent Radiation: Induction / Weekly - Non-Small Cell Lung 4 08/28/2024 CARBOplatin (PARAPLATIN)CAR BOplatin (PARAPLATIN) IVPB in 250 mLPACLitaxel (TAXOL)PACLItax el (TAXOL) 100 ml Therapy Complete Kevin Lerner MD 1 of 1 cycle started Oncology Treatment (2) Plan Name Start Date Discontinue Date Treatment Medications Discontinue Reason Plan Provider Cycles Durvalumab Consolidation 1500 mg 28 Day Cycles - Lung 09/29/20 24 11/30/2024 durvalumab (IMFINZI)durva lumab (IMFINZI) IVPB in 100 mL solution Progression Kevin Lerner MD 3 of 12 cycles started Radiation Treatments (No Episode) * Course C5_Brain_202412/15/2024 - 12/28/2024 Treatment Period Energy Fraction Dose Fractions Total Dose Plans Planned RAMÍREZ WBRT 12/15/2024 - 12/28/2024 300 10 / 3,000 Reference Points Delivered DPV BRAIN 12/15/2024 - 12/28/2024 3,000 * Course C4_RTBrain_202309/22/2024 - 12/14/2024 Treatment Period Energy Fraction Dose Fractions Total Dose Plans Planned RIGHT BR SRS 09/22/2024 - 12/14/2024 2,000 1 / 2,000 Reference Points Delivered PTV1_2000 09/22/2024 - 12/14/2024 2,000 * Course C3_Rt_LUNG_202307/21/2024 - 09/21/2024 Treatment Period Energy Fraction Dose Fractions Total Dose Plans Planned RT LUNG 07/21/2024 - 09/21/2024 200 30 / 6,000 Reference Points Delivered RIGHT LUNG 07/21/2024 - 09/21/2024 6,000 * Course C2_RT_LUNG_202208/25/2023 - 07/20/2024 Treatment Period Energy Fraction Dose Fractions Total Dose Plans Planned SBRT RML 08/25/2023 - 07/20/2024 1,100 5 / 5,500 Reference Points Delivered SBRT R LUNG 08/25/2023 - 07/20/2024 5,500 * Course C1_HEAD&NECK_23 02/05/2023 - 09/20/2024 Treatment Period Energy Fraction Dose Fractions Total Dose Plans Planned R HEAD & NECK 02/05/2023 - 09/20/2024 200 30 / 6,000 Reference Points Delivered R_H&N_6000 02/05/2023 - 09/20/2024 6,000 Lifetime Dose Tracking * Chemical Lifetime Dose Automatic Entry Manual Entr y Fluoro Time 0.7 minutes 0.7 minutes 0 minutes Air kerma at the reference point (Ka,r) 2 mGy 2 mGy 0 mGy DLP 2,506.5 mGycm 2,506.5 mGycm 0 mGycm
--- OUTSIDE RECORDS SUMMARY | 2025-02-11 23:26 | XMS_ITS | Encounter Summary ---
Author Organization [facility] Address [address] [place] [address] Care Team Providers Care Metal Tube Cutter Name Role Phone Brenda Woods RN Unavailable [phone] Braeden Valdovinos DO Primary Care Provider [phone] Encounter Details Date Type Department Care Team (Late st Contact Info) Description 02/11/2023 Lab Requisition [facility] [address] [facility] [place] [address] Darvin Rawls MD [address] [place] [address] Social History Tobacco Use Types Packs/Day Years [...] Priority Date/Time Associated Diagnosis Comments DERMATOPATHOLOGY Routine 02/11/2023 12:0 0 AM CDT documented in this encounter Results * DERMATOPATHOLOGY (02/11/2023 12:00 AM CDT) Case Report Dermatopathology Report Case: [id number] Authorizing Provider: Darvin Rawls MD Collected: 02/11/2023 12:00 AM Ordering Location: [facility] DermPath Lab Received: 02/11/2023 03:26 PM Pathologist: Fatmata Carr MD Specimen: Skin, left fa 3 3:59 PM CDT DERMATOPATHOLOGY LABORATORY Final Diagnosis Specimen A. SKIN, left fa: BASAL CELL CARCINOMA, PIGMENTED (C44.619) 3:59 PM CDT DERMATOPATHOLOGY LABORATORY Clinical History Pig. BCCA or MM. Path# [id number] 3 3:59 PM CDT DERMATOPATHOLOGY LABORATORY Gross Description Specimen A: Received is one formalin filled container labeled with the patient's name and designated left fa. The specimen consists of a shave biopsy measuring 6x5x1 mm. Jar 0. 3 3:59 PM CDT DERMATOPATHOLOGY LABORATORY Microscopic Description Specimen A. SKIN, left fa: There are aggregates of basaloid cells with a high nuclear to cytoplasmic ratio and peripheral palisading. There is abundant melanin. 3:59 PM CDT DERMATOPATHOLOGY LABORATORY Disclaimer An external and internal positive and negative controls are appropriate for the histochemical, immunohistochemical and immunofluorescence stain(s) in this case (if any), except where stated explicitly. The performance characteristics of the stain(s) cited in this report were developed and its performance characteristic determined by the Dermatopathology Laboratory at [facility], directed by Dr. Gregg Carr. These tests need not be, and therefore are not, approved by the [place] Food and Drug Administration. The tests are used for clinical purposes. Billing Codes Specimen Charges Stain Charges 69543 1 3 3:59 PM CDT DERMATOPATHOLOGY LABORATORY Embedded Images 3 3:59 PM CDT DERMATOPATHOLOGY LABORATORY Pathology/Cytolog y TISSUE SPECIMEN FROM SKIN / Unknown 02/11/2023 02/11/2023 3:26 PM CDT Darvin Rawls MD LAB - PATHOLOGY/CYTOLOGY ORDER VINICIO Final Result Performing Organization Address City/State/[facility] Co de Phone Number DERMATOPATHOLOGY LABORATORY [facility] - Department of Dermatology [facility] Specialized Medicine [address] [place] [address], [address] [phone] documented in this encounter Visit Diagnoses Not on filedocumented in this encounter Care Teams Metal Tube Cutter Relationship Specialty Start Date End Date Braeden Valdovinos DO [address] [place] [address] PCP - General 04/24/20 Brenda Woods RN Product Representative 06/23/14 documented as of this encounter
--- OUTSIDE RECORDS SUMMARY | 2025-02-11 23:26 | XMS_ITS | Encounter Summary ---
Author Organization [facility] Address [address] [facility] [place] [address] Care Team Providers Care Network Analyst Name Role Phone Brenda Woods RN Unavailable Braeden Valdovinos DO Primary Care Provider [phone] Encounter Details Date Type Department Care Team (Late st Contact Info) Description 10/30/2022 Lab Requisition [facility] [address] [facility], [place] [address] Darvin Rawls MD [address] [place] [address] Social History Tobacco Use Types Packs/Day Years [...] of Assessment Author Yes 06/22/2014 10:54 AM Tea Forrest RN * Does person have difficulty dressing/bathing? Answer Date of Assessment Author No 06/22/2014 10:54 AM Tea Forrest RN * Does person have difficulty doing errands alone? Answer Date of Assessment Author No 06/22/2014 10:54 AM Tea Forrest RN documented as of this encounter Mental Status * Does person have difficulty concentrating/remembering/making decisions? Answer Entry Date Author No 06/22/2014 10:54 AM Tea Forrest RN documented in this encounter Plan of Treatment Not on file documented as of this encounter Procedures Procedure Name Priority Date/Time Associated Diagnosis Comments DERMATOPATHOLOGY Routine 10/28/2022 12:0 0 AM EXPERIENCED TRUCK DRIVER documented in this encounter Results * DERMATOPATHOLOGY (10/28/2022 12:00 AM EXPERIENCED TRUCK DRIVER) Case Report Dermatopathology Report Case: [id number] Authorizing Provider: Darvin Rawls MD Collected: 10/28/2022 12:00 AM Ordering Location: [facility] DermPath Lab Received: 10/30/2022 10:16 AM Pathologist: Fatmata Carr MD Specimen: Skin, right lateral brow 3 5:49 PM [facility] DERMATOPATHOLOGY LABORATORY Final Diagnosis Specimen A. SKIN, right lateral brow: BASAL CELL CARCINOMA, INFILTRATIVE PATTERN (C44.319) 3 5:49 PM [facility] DERMATOPATHOLOGY LABORATORY Clinical History BCC vs SCC path#[id number] 3 5:49 PM [facility] DERMATOPATHOLOGY LABORATORY Gross Description Specimen A: Received is one formalin filled container labeled with the patient's name and designated right lateral brow. The specimen consists of a shave biopsy measuring 6x3x1 mm. Jar 0. 3 5:49 PM [facility] DERMATOPATHOLOGY LABORATORY Microscopic Description Specimen A. SKIN, right lateral brow: Within the dermis there are nodular aggregates of basaloid cells associated with fibromyxoid stroma and epithelial-stromal clefts. At the advancing margin of the neoplasm, there are smaller angulated nests that infiltrate the dermis. 3 5:49 PM [facility] DERMATOPATHOLOGY LABORATORY Disclaimer An external and internal positive and negative controls are appropriate for the histochemical, immunohistochemical and immunofluorescence stain(s) in this case (if any), except where stated explicitly. The performance characteristics of the stain(s) cited in this report were developed and its performance characteristic determined by the Dermatopathology Laboratory at [facility], directed by Dr. Gregg Carr. These tests need not be, and therefore are not, approved by the [place] Food and Drug Administration. The tests are used for clinical purposes. Billing Codes Specimen Charges Stain Charges 02445 1 3 5:49 PM EXPERIENCED TRUCK DRIVER DERMATOPATHOLOGY LABORATORY Embedded Images 3 5:49 PM EXPERIENCED TRUCK DRIVER DERMATOPATHOLOGY LABORATORY Pathology/Cytolog y TISSUE SPECIMEN FROM SKIN / Unknown 10/28/2022 10/30/2022 10:16 AM EXPERIENCED TRUCK DRIVER Darvin Rawls MD LAB - PATHOLOGY/CYTOLOGY ORDER VINICIO Final Result DERMATOPATHOLOGY LABORATORY [facility] - Department of Dermatology [facility] Medicine [address] [place] [address], [address] [phone] documented in this encounter Visit Diagnoses Not on filedocumented in this encounter Care Teams Network Analyst Relationship Specialty Start Date End Date Braeden Valdovinos DO [address] [place] [address] PCP - General 04/24/20 Brenda Woods, RN Director Of Cath Lab 06/23/14 documented as of this encounter
--- OUTSIDE RECORDS SUMMARY | 2025-02-11 23:26 | XMS_ITS | Encounter Summary ---
Author Organization [facility] Address [address] [facility] [place] [address] Care Team Providers Care Spring Production Supervisor Name Role Phone Brenda Woods RN Unavailable [phone] Braeden Valdovinos DO Primary Care Provider [phone] Encounter Details Date Type Department Care Team (Late st Contact Info) Description 05/14/2022 Lab Requisition [facility] [address] [facility], [place] [address] Darvin Rawls MD [address] [place] [address] Social History Tobacco Use Types Packs/Day Years [...] Priority Date/Time Associated Diagnosis Comments DERMATOPATHOLOGY Routine 05/10/2022 12:0 0 AM CDT documented in this encounter Results * DERMATOPATHOLOGY (05/10/2022 12:00 AM CDT) Case Report Dermatopathology Report Case: [id number] Authorizing Provider: Darvin Rawls MD Collected: 05/10/2022 12:00 AM Ordering Location: [facility] DermPath Lab Received: 05/14/2022 08:33 AM Pathologist: Bella Moran MD Specimen: Skin, right FH 2 3:48 PM CDT DERMATOPATHOLOGY LABORATORY Final Diagnosis Specimen A. SKIN, right FH: SQUAMOUS CELL CARCINOMA, WELL DIFFERENTIATED (C44.329) 2 3:48 PM CDT DERMATOPATHOLOGY LABORATORY Clinical History BCC. Path#[id number] 2 3:48 PM CDT DERMATOPATHOLOGY LABORATORY Gross Description Specimen A: Received is one formalin filled container labeled with the patient's name and designated right FH. The specimen consists of a shave biopsy measuring 7x6x1 mm. Jar 0. 2 3:48 PM CDT DERMATOPATHOLOGY LABORATORY Microscopic Description Specimen A. SKIN, right FH: Arising in the epidermis and extending into the dermis there are irregularly shaped aggregates of keratinocytes showing evidence of premature cornification. 2 3:48 PM CDT DERMATOPATHOLOGY LABORATORY Disclaimer An external and internal positive and negative controls are appropriate for the histochemical, immunohistochemical and immunofluorescence stain(s) in this case (if any), except where stated explicitly. The performance characteristics of the stain(s) cited in this report were developed and its performance characteristic determined by the Dermatopathology Laboratory at [facility], directed by Dr. Gregg Carr. These tests need not be, and therefore are not, approved by the [place] Food and Drug Administration. The tests are used for clinical purposes. Billing Codes Specimen Charges Stain Charges 28874 1 2 3:48 PM CDT DERMATOPATHOLOGY LABORATORY Embedded Images 2 3:48 PM CDT DERMATOPATHOLOGY LABORATORY Pathology/Cytolog y TISSUE SPECIMEN FROM SKIN / Unknown 05/10/2022 05/14/2022 8:33 AM CDT Darvin Rawls MD LAB - PATHOLOGY/CYTOLOGY ORDER VINICIO Final Result DERMATOPATHOLOGY LABORATORY [facility] - Department of Dermatology [facility] Specialized Medicine [address] [place] [address], [address] [phone] documented in this encounter Visit Diagnoses Not on filedocumented in this encounter Care Teams Spring Production Supervisor Relationship Specialty Start Date End Date Braeden Valdovinos DO [address] [place] [address] PCP - General 04/24/20 Brenda Woods, RN Broomcorn Press Feeder 06/23/14 documented as of this encounter
--- OUTSIDE RECORDS SUMMARY | 2025-02-11 23:26 | XMS_ITS | Clinical Summary ---
Author Organization [facility] Address [address] [facility] [place] [place] [address] Care Team Providers Care Conservation Officer Name Role Phone Brenda Woods RN Unavailable [phone] Braeden Valdovinos DO Primary Care Provider [phone] Source Comments [facility],non-owned Affiliates and Associated Physician Practices is amultiple site organization consisting of ambulatory clinics and hospital sitesin [place], [place], [place] and [place]. This disclosure is being madepursuant to the Care Everywhere program and may not contain all information available regarding this patient. Last updated 18.[facility] Allergies Active Allergy Reactions Criticality Noted Date Comments Moxifloxacin 06/13/2014 Coughing; Difficulty breathing Benzonatate Dizziness 06/09/2020 Cefuroxime Dizziness 06/09/2020 Terazosin 06/13/2014 Headache; dizziness Indomethacin Dizziness 06/09/2020 Face swelling, hives Benazepril 06/13/2014 HEADACHE; dIZZINESS Penicillins 06/13/2014 Headache; dizziness; rash Medications * Be aware that medications may not be up to date on this document. Alwaysverify current medications with the patient. lisinopril (PRINIVIL; ZESTRIL) 20 MG tablet Take 20 mg by mouth once daily. Active triamterene-hy drochlorothiaz maricarmen (MAXZIDE-25) 37.5-25 MG tablet Take 1 Tab by mouth once daily. Active rosuvastatin (CRESTOR) 10 MG tablet Take 10 mg by mouth once daily. 1/2 tablet Active allopurinol (ZYLOPRIM) 100 MG tablet TK 1 T PO D 0 Active albuterol HFA (PROVENTIL;SHANELL TOLIN;PROAIR) 108 (90 Base) MCG/ACT inhaler INL 1 PUFF PO Q 4 H PRF SOB OR WHZ 0 Active Triamcinolone Acetonide (NASACORT AQ NA) Active famotidine (PEPCID) 10 MG tablet Take 10 mg by mouth once daily Active Propylene Glycol (SYSTANE COMPLETE OP) Active acyclovir (ZOVIRAX) 5 % cream Apply to affected area as needed Active docusate sodium (COLACE) 100 MG capsule Take 1 capsule by mouth 2 times daily 14 capsule 0 Active diphenhydrAMIN E (BENADRYL) 25 MG capsule Take 1 capsule by mouth every 6 hours as needed for Itching 0 Active aspirin (ASPIRIN) 325 MG tablet Take 1 tablet by mouth 2 times daily with morning and evening meal 70 tablet 0 Active acetaminophen (TYLENOL) 500 MG tablet Take 1 tablet by mouth every 6 hours as needed for Fever or Pain Maximum allowable Acetaminophen amount = 4 Grams (4000 mg) / 24 hours. 0 Active HYDROcodone-ac etaminophen (NORCO) 5-325 MG tablet Take 1 tablet by mouth every 6 hours as needed for Pain 28 tablet 0 Active Active Problems Problem Noted Date Diagnosed Date Status post right knee replacement 06/14/2020 Social History Tobacco Use Types Packs/Day Years Used Date Smoking Tobacco: Never Smokeless Tobacco: Never Alcohol Use Standard Drinks/Week Comments No 0 (1 standard drink = 0.6 oz pur e alcohol) Sex and Gender Information Value Date Recorded Sex Assigned at Not on file Legal Sex Male 6:58 AM CDT Gender Identity Not on file Sexual Orientation Not on file Last Filed Vital Signs Vital Sign Reading Time Taken Comments Blood Pressure 113/52 06/15/2020 4:03 PM CDT Pulse 77 06/15/2020 4:03 PM CDT Temperature 37 C (98.6 F) 06/15/2020 4:03 PM CDT Respiratory Rate 18 06/15/2020 4:03 PM CDT Oxygen Saturation 100% 06/15/2020 4:03 PM CDT Inhaled Oxygen Concentration - - Weight 105.2 kg (232 lb) 07/21/2020 10:54 AM CDT Height 185.4 cm (6' 1 ) 06/14/2020 6:19 AM CDT Body Mass Index 30.61 06/14/2020 6:19 AM CDT Plan of Treatment Health Maintenance Due Date Last Done Comments MEDICARE AWV 12 MONTHS 1945 Opioid Medication Agreement - Annual 1943 DTAP/TDAP/TD VACCINES (1 - Tdap) 1962 PNEUMOCOCCAL VACCINE 50+ (1 of 1 - PCV) 1993 ZOSTER VACCINE (1 of 2) 1993 Respiratory Syncytial Virus (RSV) Vaccine Pt: or over 60 yrs (1 - 1-dose 75+ series) 2018 COVID-19 VACCINE ( - 2023-2 5 season) 2024 DEPRESSION SCREENING 10/20/2024 INFLUENZA VACCINE (Season Ended) 2025 HEPATITIS B VACCINE Aged Out No longe r eligible based on patient's age to complete this topic HIB VACCINE Aged Out No longer eligi ble based on patient's age to complete this topic HPV VACCINE Aged Out No longer eligi ble based on patient's age to complete this topic MENINGOCOCCAL (Group B) VACC INE SHARED DECISION-MAKING Aged Out No longer eligibl e based on patient's age to complete this topic MENINGOCOCCAL GROUPS A/C/Y/W VACCINE Aged Out No longer eligible b ased on patient's age to complete this topic Medical Devices Implanted Type Area Sausage Grinder Device Identifier Shelf Expiration Date Model / Serial / Lot Romero Bone [place] Hv Implanted:Qty: 2 on 06/22/2014 by Yann Jarvis MD at [facility] Left: Knee [employer] 02/18/2016 [id number] / / [id number] [place] Partial Knee System Cemented Twin Pegged Femoral X-Lrge Cocrmo Implanted:Qty: 1 on 06/22/2014 by Yann Jarvis MD at [facility] Left: Knee [employer] 04/19/2021 [id number] / [id number] / [id number] [place] Partial Knee System Left Medial Tibial Tray Standard Size F Cocr Implanted:Qty: 1 on 06/22/2014 by Yann Jarvis MD at [facility] Left: Knee [employer] 06/20/2020 [id number] / [id number] / [id number] [place] Partial Knee System Anatomic Arcom Meniscal Bearing Extra Large Left Size 5 Mm Thick Implanted:Qty: 1 on 06/22/2014 by Yann Jarvis MD at [facility] Left: Knee [employer] 09/19/2018 [id number] / [id number] / [id number] Bill Only K3 Kn Uni W/Oxf Mob Bear Part Implanted:Qty: 1 on 06/22/2014 by Yann Jarvis MD at [facility] [employer] BILL ONLY K3 OXF BEAR PARTIAL / / Stem Tib 100mm 14mm Gnss Ii Lng Kn Ti Implanted:Qty: 1 on 06/14/2020 by Yann Jarvis MD at [facility] Right: Knee [employer] 08/02/2028 [id number] / / [id number] Constrained Articular Insert Implanted:Qty: 1 on 06/14/2020 by Yann Jarvis MD at [facility] Right: Knee [employer] 03/28/2028 [id number] / / [id number] Melvin K1 Sys Kn Cemented - Includes Uni Implanted:Qty: 1 on 06/14/2020 by Yann Jarvis MD at [facility] Right: Knee [employer] K1 CEMENTED - INCLUDES UNI KNEES / / Melvin Oxinium Upchrg Implanted:Qty: 1 on 06/14/2020 by Yann Jarvis MD at [facility] Right: Knee [employer] OXINIUM UPCHG SNORTHO BILL ONLY / / Cmnt Bone Plc R 40gm Hvisc Grn Implanted:Qty: 2 on 06/14/2020 by Yann Jarvis MD at [facility] Right: Knee Heraeus Kul[employer] 08/19/2023 [id number] / / [id number] Tibial Baseplate Implanted:Qty: 1 on 06/14/2020 by Yann Jarvis MD at [facility] Right: Knee [employer] 01/13/2028 [id number] / / [id number] Femoral Component Implanted:Qty: 1 on 06/14/2020 by Yann Jarvis MD at [facility] Right: Knee [employer] 03/15/2029 [id number] / / [id number] Patellar Component Implanted:Qty: 1 on 06/14/2020 by Yann Jarvis MD at [facility] Right: Knee [employer] 07/05/2029 [id number] / / [id number] [place] [address] MEDICARE [facility] MEDICARE AETNA Advance Directives * Full Code (Latest Code Status on File) Date Activated Date Inactivated Comments 06/14/2020 11:59 AM 06/15/2020 6:32 PM * Full Code Date Activated Date Inactivated Comments 06/22/2014 10:43 AM 06/24/2014 3:22 PM Care Teams Conservation Officer Relationship Specialty Start Date End Date Braeden Valdovinos DO [address] [place] [id number] PCP - General 04/24/20 Brenda Woods, RN On Site Construction Superintendent 06/23/14
--- OUTSIDE RECORDS SUMMARY | 2025-02-11 23:26 | XMS_ITS | Clinical Summary ---
Author Organization [facility] Address [address] [place] [address] Care Team Providers Care Expander Machine Operator Name Role Phone Unavailable Primary Care Provider Unavailabl e Social History Tobacco Use Types Packs/Day Years Used Date Smoking Tobacco: Never Assessed Comments Unknown Sex and Gender Information Value Date Recorded Sex Assigned at Not on file Legal Sex Female 6:35 PM CDT Gender Identity Not on file Sexual Orientation Not on file Plan of Treatment Health Maintenance Due Date Last Done Comments DTaP, Tdap and Td Vaccines ( 1 - Tdap) 1962 Pneumococcal Vaccine: 50+ Ye ars (1 of 1 - PCV) 1993 Zoster Vaccines (1 of 2) 1993 Dexa Scan (General) 2008 RSV Immunization or 60+ Years (1 - 1-dose 75+ series) 2018 COVID-19 Vaccine (2023-2 5 season) 2024 Meningococcal B Vaccine Aged Out No l onger eligible based on patient's age to complete this topic Meningococcal Vaccine Aged Out No lola josep eligible based on patient's age to complete this topic RSV Immunizations Under 20 Months Aged Out No longer eligible based on patient's age to complete this topic
--- OUTSIDE RECORDS SUMMARY | 2025-02-11 23:26 | XMS_ITS | Encounter Summary ---
Author Organization [facility] Address [address] [facility] [place] [address] Care Team Providers Care Hotel Desk Clerk Name Role Phone Brenda Woods RN Unavailable Braeden Valdovinos DO Primary Care Provider [phone] Encounter Details Date Type Department Care Team (Late st Contact Info) Description 11/06/2021 Lab Requisition [facility] [address] [facility] [place] [address] Darvin Rawls MD [address] [place] [address] Social History Tobacco Use Types Packs/Day Years [...] Priority Date/Time Associated Diagnosis Comments DERMATOPATHOLOGY Routine 11/05/2021 12:0 0 AM CYLINDER BLOCK MECHANIC documented in this encounter Results * DERMATOPATHOLOGY (11/05/2021 12:00 AM CYLINDER BLOCK MECHANIC) Case Report Dermatopathology Report Case: [id number] Authorizing Provider: Darvin Rawls MD Collected: 11/05/2021 12:00 AM Ordering Location: [facility]erm[facility] Lab Received: 11/06/2021 08:00 AM Pathologist: Bella Moran MD Specimen: Skin, right lat neck 2 1:24 PM CYLINDER BLOCK MECHANIC DERMATOPATHOLOGY LABORATORY Final Diagnosis Specimen A. SKIN, right lat neck: BASAL CELL CARCINOMA, NODULAR TYPE (C44.41) 2 1:24 PM [facility] DERMATOPATHOLOGY LABORATORY Clinical History BCCA. Path# [id number]. 2 1:24 PM CYLINDER BLOCK MECHANIC DERMATOPATHOLOGY LABORATORY Gross Description Specimen A: Received is one formalin filled container labeled with the patient's name and designated right lat neck. The specimen consists of a shave biopsy measuring [id number]. Jar 0. 2 1:24 PM CYLINDER BLOCK MECHANIC DERMATOPATHOLOGY LABORATORY Microscopic Description Specimen A. SKIN, right lat neck: Within the dermis there are aggregates of basaloid cells with a high nuclear to cytoplasmic ratio and peripheral palisading. 2 1:24 PM CYLINDER BLOCK MECHANIC DERMATOPATHOLOGY LABORATORY Disclaimer An external and internal positive and negative controls are appropriate for the histochemical, immunohistochemical and immunofluorescence stain(s) in this case (if any), except where stated explicitly. The performance characteristics of the stain(s) cited in this report were developed and its performance characteristic determined by the Dermatopathology Laboratory at [facility], directed by Dr. Gregg Carr. These tests need not be, and therefore are not, approved by the [place] Food and Drug Administration. The tests are used for clinical purposes. Billing Codes Specimen Charges Stain Charges 01342 1 2 1:24 PM CYLINDER BLOCK MECHANIC DERMATOPATHOLOGY LABORATORY Embedded Images 2 1:24 PM CYLINDER BLOCK MECHANIC DERMATOPATHOLOGY LABORATORY Pathology/Cytolog y TISSUE SPECIMEN FROM SKIN / Unknown 11/05/2021 11/06/2021 8:00 AM CYLINDER BLOCK MECHANIC Darvin Rawls MD LAB - PATHOLOGY/CYTOLOGY ORDER VINICIO Final Result DERMATOPATHOLOGY LABORATORY [facility] - Department of Dermatology [facility] [address] [place] [address], [address] [phone] documented in this encounter Visit Diagnoses Not on filedocumented in this encounter Care Teams Hotel Desk Clerk Relationship Specialty Start Date End Date Braeden Valdovinos DO [address] [place] [address] PCP - General 04/24/20 Brenda Woods RN Rag Baler 06/23/14 documented as of this encounter
--- OUTSIDE RECORDS SUMMARY | 2025-02-11 23:26 | XMS_ITS | Encounter Summary ---
Author Organization [facility] Address [address] [facility] [place] [address] Care Team Providers Care Outboard Motorboat Rigger Name Role Phone Brenda Woods RN Unavailable [phone] Braeden Valdovinos DO Primary Care Provider [phone] Encounter Details Date Type Department Care Team (Late st Contact Info) Description 04/23/2023 Lab Requisition [facility] - DermPath Lab [address] [facility] [place] [address] Darvin Rawls MD [address] [place] [address] Social History Tobacco Use Types Packs/Day Years [...] 10:54 AM LEWIST Tea Larios RN * Is person blind or have serious difficulty seeing? Answer Date of Assessment Author No 06/22/2014 10:54 AM LEWIST Tea Larios RN * Does person have serious difficulty [...] Priority Date/Time Associated Diagnosis Comments DERMATOPATHOLOGY Routine 04/23/2023 12:0 0 AM CDT documented in this encounter Results * DERMATOPATHOLOGY (04/23/2023 12:00 AM CDT) Case Report Dermatopathology Report Case: [id number] Authorizing Provider: Darvin Rawls MD Collected: 04/23/2023 12:00 AM Ordering Location: [facility] DermPath Lab Received: 04/23/2023 03:28 PM Pathologist: Lesley Barajas MD Specimen: Skin, left forearm 3 1:08 PM CDT DERMATOPATHOLOGY LABORATORY Final Diagnosis Specimen A. SKIN, left forearm: BASAL CELL CARCINOMA (C44.619) NOT PRESENT AT MARGIN DERMAL SCAR (L90.5) 3 1:08 PM CDT DERMATOPATHOLOGY LABORATORY Clinical History Pigmented BCCA. Check Margins. Path# [id number] 3 1:08 PM CDT DERMATOPATHOLOGY LABORATORY Gross Description Specimen A: Received is one formalin filled container labeled with the patient's name and designated left forearm. The specimen consists of a non-oriented ellipse of skin measuring [id number] mm. The epidermal surface is unremarkable. The margin is inked green. The 12 o'clock and 6 o'clock tips are submitted in cassette 1. The remainder of the ellipse is serially sectioned and submitted in cassette 2. Jar 0. 3 1:08 PM CDT DERMATOPATHOLOGY LABORATORY Microscopic Description Specimen A. SKIN, left forearm: Within the dermis there are aggregates of basaloid cells with a high nuclear to cytoplasmic ratio and peripheral palisading. This lesion is not present at the margin of the specimen. There are fibroblasts and collagen bundles oriented parallel to the skin surface with elongated blood vessels, some of which are oriented perpendicular to the skin surface. 3 1:08 PM CDT DERMATOPATHOLOGY LABORATORY Disclaimer An external and internal positive and negative controls are appropriate for the histochemical, immunohistochemical and immunofluorescence stain(s) in this case (if any), except where stated explicitly. The performance characteristics of the stain(s) cited in this report were developed and its performance characteristic determined by the Dermatopathology Laboratory at [facility], directed by Dr. Gregg Carr. These tests need not be, and therefore are not, approved by the [place] Food and Drug Administration. The tests are used for clinical purposes. Billing Codes Specimen Charges Stain Charges 59993 1 3 1:08 PM CDT DERMATOPATHOLOGY LABORATORY Embedded Images 3 1:08 PM CDT DERMATOPATHOLOGY LABORATORY Pathology/Cytolog y TISSUE SPECIMEN FROM SKIN / Unknown 04/23/2023 04/23/2023 3:28 PM CDT Darvin Rawls MD LAB - PATHOLOGY/CYTOLOGY ORDER VINICIO Final Result Performing Organization Address [facility]/State/ZIP Co de Phone Number DERMATOPATHOLOGY LABORATORY [facility] - Department of Dermatology [facility] Medicine [address] [place] [address], [address] [phone] documented in this encounter Visit Diagnoses Not on filedocumented in this encounter Care Teams Outboard Motorboat Rigger Relationship Specialty Start Date End Date Braeden Valdovinos DO [address] [place] [address] PCP - General 04/24/20 Brenda Woods RN Filter Screen Cleaner 06/23/14 documented as of this encounter
--- OUTSIDE RECORDS SUMMARY | 2025-02-11 23:26 | XMS_ITS | Referral Summary ---
Author Organization [facility] Address [address] [place] [phone] Care Team Providers Care Aerial Lineman Name Role Phone Carlyle Rawls MD Unavailable [phone] Jake Payne MD Unavailable [phone] Braeden Valdovinos DO Unavailable Braeden Valdovinos DO Primary Care Provider [phone] Kevin Lerner MD Unavailable [phone] Encounters Date Type Department Care Team Description 02/03/2025 Telephone [facility] Medical Office Building 2 Radiation Oncology [address] [place] [phone] Renetta Michelle 02/02/2025 12:00 PM CDT Infusion [facility] Center at [address] [place] [address] Dehydration (Primary Dx); Malignant neoplasm of overlapping sites of right lung (HCC); Malignant neoplasm metastatic to brain (HCC) 02/02/2025 11:30 AM CDT Office Visit [facility] Physicians [facility] Oncology [address] [place] [address] [address] [place] [address] Kevin Lerner MD Malignant neoplasm of overlapping sites of right lung (HCC) (Primary Dx); Malignant neoplasm metastatic to brain (HCC); Squamous cell carcinoma of head and neck; Encounter for person encountering health services 02/02/2025 1:30 PM CDT Office Visit [facility] Medical Office Building 2 Radiation Oncology [address] [place] [phone] Jake Payne MD Squamous cell carcinoma of head and neck (Primary Dx) 01/27/2025 Telephone [facility] Physicians [facility] Oncology [address] [place] [phone] Susanne Barrow RN 01/27/2025 4:00 PM CDT Infusion [address] [phone] Encounter for person encountering health services (Primary Dx); Malignant neoplasm of overlapping sites of right lung (HCC); Squamous cell carcinoma of head and neck 01/26/2025 12:30 PM CDT Infusion [address] [phone] Encounter for person encountering health services (Primary Dx); Malignant neoplasm of overlapping sites of right lung (HCC); Squamous cell carcinoma of head and neck 01/26/2025 11:30 AM CDT Clinical Support [address] [address] Malignant neoplasm of overlapping sites of right lung (HCC); Squamous cell carcinoma of head and neck; Encounter for person encountering health services; Malignant neoplasm metastatic to brain (HCC); Fall, sequela 01/26/2025 12:00 PM CDT Office Visit [facility] Physicians [facility] Oncology [address] [place] [phone] Kevin Lerner MD Malignant neoplasm of overlapping sites of right lung (HCC) (Primary Dx); Malignant neoplasm metastatic to brain (HCC); Squamous cell carcinoma of head and neck; Encounter for person encountering health services; Fall, sequela; Generalized weakness 01/12/2025 2:30 PM CDT Infusion [address] [phone] Dehydration (Primary Dx); Malignant neoplasm of overlapping sites of right lung (HCC); Squamous cell carcinoma of head and neck; Malignant neoplasm metastatic to brain (HCC) 01/12/2025 2:00 PM CDT Office Visit [facility] Physicians [facility] Oncology [address] [place] [phone] Sandra Lopez NP Malignant neoplasm of overlapping sites of right lung (HCC) (Primary Dx); Malignant neoplasm metastatic to brain (HCC); Squamous cell carcinoma of head and neck; Encounter for person encountering health services 01/06/2025 3:45 PM CDT Infusion [address] [place] [phone] Encounter for person encountering health services (Primary Dx); Malignant neoplasm of overlapping sites of right lung (HCC); Squamous cell carcinoma of head and neck 01/05/2025 Orders Only [facility] Physicians [facility] Oncology [address] [place] [phone] Kevin Lerner MD Muscular deconditioning (Primary Dx) 01/05/2025 11:15 AM CDT Clinical Support [address] [address] Malignant neoplasm of overlapping sites of right lung (HCC); Squamous cell carcinoma of head and neck; Encounter for person encountering health services 01/05/2025 12:15 PM CDT Infusion [address] [phone] Encounter for person encountering health services (Primary Dx); Malignant neoplasm of overlapping sites of right lung (HCC); Squamous cell carcinoma of head and neck 01/05/2025 11:45 AM CDT Office Visit [facility] Physicians [facility] Oncology [address] [place] [phone] Kevin Lerner MD Malignant neoplasm of overlapping sites of right lung (HCC) (Primary Dx); Squamous cell carcinoma of head and neck; Malignant neoplasm metastatic to brain (HCC); Encounter for person encountering health services 01/04/2025 Telephone [facility] Phys[facility] Oncology [address] [place] [phone] Virgen Coffey RN 12/28/2024 Completion of Therapy [facility] Office Building 2 Radiation Oncology [address] [place] [phone] Jake Payne MD 12/28/2024 Orders Only RAD ONC TREATMENTS Miscellaneous, Not In File 12/28/2024 1:00 PM CDT Treatment [facility] Office Building 2 Radiation Oncology [address] [place] [phone] Jake Payne MD 12/27/2024 Orders Only RAD ONC TREATMENTS Miscellaneous, Not In File 12/27/2024 1:00 PM CDT Treatment [facility] Office [facility] 2 Radiation Oncology [address] [place] [phone] 12/24/2024 OTV [facility] Office Building 2 Radiation Oncology [address] [place] [phone] Jake Payne MD 12/24/2024 Orders Only RAD ONC TREATMENTS Miscellaneous, Not In File 12/24/2024 1:00 PM PROCESS ENGINEERING TECHNICIAN Treatment [facility] Office [facility] 2 Radiation Oncology [address] [place] [phone] 12/23/2024 Orders Only RAD ONC TREATMENTS Miscellaneous, Not In File 12/23/2024 1:00 PM PROCESS ENGINEERING TECHNICIAN Treatment [facility] Office [facility] 2 Radiation Oncology [address] [place] [phone] 12/22/2024 Orders Only RAD ONC TREATMENTS Miscellaneous, Not In File 12/22/2024 1:00 PM PROCESS ENGINEERING TECHNICIAN Treatment [facility] Office [facility] 2 Radiation Oncology [address] [place] [phone] 12/22/2024 2:45 PM PROCESS ENGINEERING TECHNICIAN Office Visit [facility] Oncology [address] [place] [phone] Kevin Lerner MD Malignant neoplasm of overlapping sites of right lung (HCC) (Primary Dx); Squamous cell carcinoma of head and neck; Metastasis to brain (HCC); Other fatigue 12/21/2024 Orders Only RAD ONC TREATMENTS Miscellaneous, Not In File 12/21/2024 1:00 PM PROCESS ENGINEERING TECHNICIAN Treatment [facility] Office Building 2 Radiation Oncology [address] [place] [phone] 12/20/2024 Orders Only RAD ONC TREATMENTS Miscellaneous, Not In File 12/20/2024 1:00 PM PROCESS ENGINEERING TECHNICIAN Treatment [facility] Office Building 2 Radiation Oncology [address] [place] [phone] 12/17/2024 OTV [facility] Office Building 2 Radiation Oncology [address] [place] [phone] Jake Payne MD 12/17/2024 Orders Only RAD ONC TREATMENTS Miscellaneous, Not In File 12/17/2024 1:00 PM PROCESS ENGINEERING TECHNICIAN Treatment [facility] Office [facility] 2 Radiation Oncology [address] [place] [phone] 12/16/2024 Orders Only RAD ONC TREATMENTS Miscellaneous, Not In File 12/16/2024 1:00 PM PROCESS ENGINEERING TECHNICIAN Treatment [facility] Office [facility] 2 Radiation Oncology [address] [place] [address] 12/15/2024 1:30 PM PROCESS ENGINEERING TECHNICIAN Clinical Support [facility] Office [facility] 2 Radiation Oncology [address] [place] [phone] Malignant neoplasm of overlapping sites of right lung (HCC) (Primary Dx); Squamous cell carcinoma of head and neck; Dehydration 12/15/2024 Orders Only RAD ONC TREATMENTS Miscellaneous, Not In File 12/15/2024 1:00 PM PROCESS ENGINEERING TECHNICIAN Treatment [facility] Office [facility] 2 Radiation Oncology [address] [place] [phone] Jake Payne MD 12/15/2024 12:45 PM PROCESS ENGINEERING TECHNICIAN Treatment [facility] Office Building 2 Radiation Oncology [address] [place] [phone] Jake Payne MD 12/14/2024 7:30 PM PROCESS ENGINEERING TECHNICIAN Treatment [facility] Office Building 2 Radiation Oncology [address] [place] [phone] 12/14/2024 Orders Only RAD ONC TREATMENTS Miscellaneous, Not In File 12/13/2024 1:12 PM PROCESS ENGINEERING TECHNICIAN - 12/13/2024 11:59 PM PROCESS ENGINEERING TECHNICIAN Hospital Encounter [facility] Ultrasound [address] [place] [phone] Vazquez Penny MD Mass on back Discharge Disposition: Discharge to home or self care 12/13/2024 1:12 PM PROCESS ENGINEERING TECHNICIAN - 12/13/2024 11:59 PM PROCESS ENGINEERING TECHNICIAN Hospital Encounter [facility] Ultrasound [address] [place] [phone] Vzaquez Penny MD Axillary mass, left Discharge Disposition: Discharge to home or self care 12/08/2024 2:00 PM PROCESS ENGINEERING TECHNICIAN Treatment [facility] Medical Office Building 2 Radiation Oncology [address] [place] [phone] Jake Payne MD 12/08/2024 1:30 PM PROCESS ENGINEERING TECHNICIAN Office Visit [facility] Medical Office Building 2 Radiation Oncology [address] [place] [phone] Jake Payne MD Malignant neoplasm of overlapping sites of right lung (HCC) (Primary Dx) 12/08/2024 11:15 AM PROCESS ENGINEERING TECHNICIAN Clinical Support [facility] at [address] [address] Malignant neoplasm of overlapping sites of right lung (HCC); Squamous cell carcinoma of head and neck 12/08/2024 12:30 PM PROCESS ENGINEERING TECHNICIAN Office Visit [facility] Oncology [address] [place] [phone] Kevin Lerner MD Malignant neoplasm of overlapping sites of right lung (HCC) (Primary Dx); Squamous cell carcinoma of head and neck 12/08/2024 10:08 AM PROCESS ENGINEERING TECHNICIAN - 12/08/2024 11:59 PM PROCESS ENGINEERING TECHNICIAN Hospital Encounter [facility] MRI [address] [place] [phone] Malignant neoplasm of overlapping sites of right lung (HCC) Discharge Disposition: Discharge to home or self care 12/01/2024 2:00 PM PROCESS ENGINEERING TECHNICIAN Office Visit [facility] Oncology [address] [place] [phone] Kevin Lerner MD Malignant neoplasm of overlapping sites of right lung (HCC) (Primary Dx); Squamous cell carcinoma of head and neck; 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); Metastasis to brain (HCC) 11/30/2024 Orders Only [facility] Oncology [address] [place] [phone] Virgen Coffey RN Malignant neoplasm of overlapping sites of right lung (HCC) (Primary Dx) 11/29/2024 10:32 AM PROCESS ENGINEERING TECHNICIAN - 11/29/2024 11:59 PM PROCESS ENGINEERING TECHNICIAN Hospital Encounter [facility] Imaging [address] [place] [address] [facility] Malignant neoplasm of overlapping sites of right lung (HCC) Discharge Disposition: Discharge to home or self care 11/24/2024 11:15 AM PROCESS ENGINEERING TECHNICIAN Clinical Support [facility] at [address] [address] Malignant neoplasm of overlapping sites of right lung (HCC) 11/24/2024 11:45 AM PROCESS ENGINEERING TECHNICIAN Office Visit [facility] Oncology [address] [place] [phone] Kevin Lerner MD Malignant neoplasm of overlapping sites of right lung (HCC) (Primary Dx); Other fatigue; Metastasis to brain (HCC); Anemia, unspecified type; Radiation pneumonitis 11/17/2024 12:56 PM PROCESS ENGINEERING TECHNICIAN - 11/17/2024 11:59 PM PROCESS ENGINEERING TECHNICIAN Hospital [facility] [place] [address] [place] [address] Malignant neoplasm of overlapping sites of right lung (HCC) Discharge Disposition: Discharge to home or self care from Last 3 Months Allergies Active Allergy Reactions Criticality Noted Date Comments Benazepril Dizziness Low 06/13/2014 HEADACHE; dIZZINESS Benzonatate Dizziness Low 06/09/2020 Cefuroxime Dizziness Low 06/09/2020 Indomethacin Dizziness Low 06/09/2020 Face swelling, hives Lisinopril Cough Low 07/01/2024 Metoprolol Other (See comments) Low 07/13/2024 unknown Moxifloxacin Shortness of breath,Cough,Dizziness High 06/13/2014 Coughing; Difficulty breathing Penicillins Rash Medium 06/13/2014 Headache; dizziness; rash Terazosin Headache Low 06/13/2014 Headache; dizziness Medications famotidine (PEPCID) 10 mg tablet Take 1 tablet (10 mg total) by mouth 2 (two) times a day as needed for indigestion or heartburn Active diphenhydrAMIN E (BENADRYL) 25 mg capsule Take 1 tablet/capsule (25 mg total) by mouth every 6 (six) hours as needed for itching, allergies or sleep 0 Active allopurinoL (ZYLOPRIM) 100 mg tabletIndicati ons:prevention of acute gout attack Take 2 tablets (200 mg total) by mouth 2 (two) times a day 0 Active albuterol HFA (PROVENTIL HFA,VENTOLIN HFA,PROAIR HFA) 90 mcg/actuation inhaler Inhale 1 puff every 6 (six) hours as needed for wheezing or shortness of breath 0 Active acetaminophen (TYLENOL) 500 mg tablet Take 1 tablet (500 mg total) by mouth every 6 (six) hours as needed for pain 0 Active ibuprofen (ADVIL,MOTRIN) 200 mg tab/cap Take 2 tablet/capsule (400 mg total) by mouth every 6 (six) hours as needed for pain Active rosuvastatin (CRESTOR) 20 mg tablet Take 0.5 tablets (10 mg total) by mouth daily 3 Active BUDESONIDE NASL Administer 2 sprays into affected nostril(s) daily as needed Active cholecalcifero l (VITAMIN D-3) 5,000 unit tablet Take 1 tablet (5,000 Units total) by mouth daily Active triamterene-hy droCHLOROthiaz maricarmen 37.5-25 mg per capsule Take 1 tablet/capsule by mouth daily 4 Active lidocaine-pril ocaine creamIndicatio ns:Administrat ion of Local Anesthesia Apply topically as needed for pain (with port a cath access) Apply teaspoon amount 30-45 minutes prior to lab appointment 30 g 2 4 Active metoprolol tartrate (LOPRESSOR) 25 mg immediate release tablet 4 Active al & mag hydroxide simethicone-di phenhydramine- lidocaine-nyst atin (MAGIC MOUTHWASH) suspension 1-1-1-1 Swish and swallow 15 mL every 4 (four) hours as needed (mouth sores) 237 mL 2 4 Active memantine (NAMENDA) 5 mg tablet Take 1 tablet (5 mg total) by mouth daily for 7 days, THEN 2 tablets (10 mg total) daily for 7 days, THEN 3 tablets (15 mg total) daily for 7 days, THEN 4 tablets (20 mg total) daily for 7 days. 70 tablet 5 Active prochlorperazi ne (COMPAZINE) 10 mg tablet Take 1 tablet (10 mg total) by mouth every 6 (six) hours as needed for nausea or vomiting As needed Active memantine (NAMENDA) 10 mg tabletIndicati ons:Moderate to Severe Alzheimer's Type Dementia Take 1 tablet (10 mg total) by mouth 2 (two) times a day 60 tablet 4 5 05/23/20 25 Active predniSONE (DELTASONE) 20 mg tablet Take 1 tablet (20 mg) by mouth daily 30 tablet 1 5 Active predniSONE (DELTASONE) 20 mg tablet Take 1 tablet (20 mg) by mouth daily 30 tablet 5 02/03/20 25 Discontin ued(Reord er) Active Problems Patient Care Coordination No te Formatting of this note migh t be different from the original. Vikki Marrero 1945 78-year-old male who is referred here today by Bria TINAJERO. He is a lifelong nonsmoker, however, grew [...] 11/18/2022 (Dr. 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 Berry) -scalp resection, right protestant resection, local facial advancement snail flap, 12/26/2022 [...] skin and subcutaneous lesion along the right protestant (axial image 50/374) most compatible with residual [...] (12/20/2022): Added automatically from request for surgery [id number] Social History Tobacco Use Types Packs/Day Years Used Date Smoking Tobacco: Never Smokeless Tobacco: Never Tobacco Cessation:Counseling Given: Not Answered AUDIT-C Answer Date Recorded Q1: How often do you have a drink containing alcohol? Never 02/02/2025 Q2: How many drinks containi ng alcohol do you have on a typical day when you are drinking? Patient does not drink Frequency of Binge Drinking Not on file 01/18 Personal Safety Answer Date Recorded Have you ever been in or are you currently in a harmful physical or emotional relationship or is someone making you feel afraid or unsafe? Denies 10/04/2024 Sex and Gender Information Value Date Recorded Sex Assigned at Not on file Legal Sex Male 9:00 AM PROCESS ENGINEERING TECHNICIAN Gender Identity Not on file Sexual Orientation Not on file Last Filed Vital Signs Vital Sign Reading Time Taken Comments Blood Pressure 108/73 02/02/2025 12:15 PM CDT Pulse 100 02/02/2025 12:15 PM CDT Temperature 36.7 C (98 F) 02/02/2025 12:15 PM CDT Respiratory Rate 19 02/02/2025 12:15 PM CDT Oxygen Saturation 96% 02/02/2025 12:15 PM CDT Inhaled Oxygen Concentration - - Weight 85.7 kg (189 lb) 02/02/2025 12:15 PM CDT Height 178.5 cm (5' 10.28 ) 01/05/2025 12:29 PM CDT w/o shoes Body Mass Index 26.91 01/05/2025 12:29 PM CDT Plan of Treatment Not on file Medical Devices Implanted Type Area Bulk Gas Specialist Device Identifier Shelf Expiration Date Model / Serial / Lot Other - See Comments Other - see comments Bilatera l: Knee Description:Armin Knee replace ment [employer] Xcela Power Port 8fr [id number] - [id number] Implanted:Qty: 1 on 07/15/2024 by Stu Arana MD at [facility] [employer] 02/21/2029 [id number] / / [id number] Procedures Procedure Name Priority Date/Time Associated Diagnosis Comments CREATINE KINASE (CK), TOTAL Routine 01/26/2025 11:34 AM CDT Malignant neoplasm of overlapping sites of right lung (HCC) Malignant neoplasm metastatic to brain (HCC) Fall, sequela EGFR STAT 01/26/2025 11:34 AM CDT Malignant neoplasm of overlapping sites of right lung (HCC) Squamous cell carcinoma of head and neck Encounter for person encountering health services DIFFERENTIAL AUTO Routine 01/26/2025 11: 34 AM CDT Malignant neoplasm of overlapping sites of right lung (HCC) Squamous cell carcinoma of head and neck Encounter for person encountering health services COMPREHENSIVE METABOLIC PANEL STAT 01/26/2025 11:34 AM CDT Malignant neoplasm of overlapping sites of right lung (HCC) Squamous cell carcinoma of head and neck Encounter for person encountering health services CBC WITH AUTO DIFFERENTIAL Routine 01/26/2025 11:34 AM CDT Malignant neoplasm of overlapping sites of right lung (HCC) Squamous cell carcinoma of head and neck Encounter for person encountering health services EGFR STAT 01/05/2025 11:17 AM CDT Malignant neoplasm of overlapping sites of right lung (HCC) Squamous cell carcinoma of head and neck Encounter for person encountering health services DIFFERENTIAL AUTO Routine 01/05/2025 11: 17 AM CDT Malignant neoplasm of overlapping sites of right lung (HCC) Squamous cell carcinoma of head and neck Encounter for person encountering health services CBC WITH AUTO DIFFERENTIAL Routine 01/05/2025 11:17 AM CDT Malignant neoplasm of overlapping sites of right lung (HCC) Squamous cell carcinoma of head and neck Encounter for person encountering health services COMPREHENSIVE METABOLIC PANEL STAT 01/05/2025 11:17 AM CDT Malignant neoplasm of overlapping sites of right lung (HCC) Squamous cell carcinoma of head and neck Encounter for person encountering health services RAD ONC ARIA SESSION SUMMARY 12/28/2024 1:14 PM CDT RAD ONC ARIA SESSION SUMMARY 12/27/2024 1:13 PM CDT RAD ONC ARIA SESSION SUMMARY 12/24/2024 1:19 PM PROCESS ENGINEERING TECHNICIAN TEMPUS XT DNA AND RNA SOLID TUMOR Routine 12/23/2024 5:27 PM PROCESS ENGINEERING TECHNICIAN Malignant neoplasm of overlapping sites of right lung (HCC) Squamous cell carcinoma of head and neck Metastasis to brain (HCC) RAD ONC ARIA SESSION SUMMARY 12/23/2024 1:11 PM PROCESS ENGINEERING TECHNICIAN RAD ONC ARIA SESSION SUMMARY 12/22/2024 1:07 PM PROCESS ENGINEERING TECHNICIAN RAD ONC ARIA SESSION SUMMARY 12/21/2024 1:10 PM PROCESS ENGINEERING TECHNICIAN RAD ONC ARIA SESSION SUMMARY 12/20/2024 1:18 PM PROCESS ENGINEERING TECHNICIAN RAD ONC ARIA SESSION SUMMARY 12/17/2024 1:10 PM PROCESS ENGINEERING TECHNICIAN RAD ONC ARIA SESSION SUMMARY 12/16/2024 1:11 PM PROCESS ENGINEERING TECHNICIAN RAD ONC ARIA SESSION SUMMARY 12/15/2024 12:59 PM PROCESS ENGINEERING TECHNICIAN RAD ONC ARIA COURSE SUMMARY 12/14/2024 10:30 AM PROCESS ENGINEERING TECHNICIAN US PERCUTANEOUS NEEDLE BIOPSY MUSCLE Schedule Routine, Read Routine (OP Routine) 12/13/2024 2:30 PM PROCESS ENGINEERING TECHNICIAN Mass on back US GUIDED BIOPSY LYMPH NODE SUPERFICIAL LEFT Schedule Routine, Read Routine (OP Routine) 12/13/2024 2:30 PM PROCESS ENGINEERING TECHNICIAN Axillary mass, left FLOW LEUKEMIA/LYMPHOMA Routine 12/13/2024 2:10 PM PROCESS ENGINEERING TECHNICIAN FLOW LEUKEMIA/LYMPHOMA Routine 12/13/2024 1:58 PM PROCESS ENGINEERING TECHNICIAN SURGICAL PATHOLOGY Routine 12/13/2024 1: 57 PM PROCESS ENGINEERING TECHNICIAN Axillary mass, left EGFR STAT 12/08/2024 12:09 PM PROCESS ENGINEERING TECHNICIAN Malignant neoplasm of overlapping sites of right lung (HCC) Squamous cell carcinoma of head and neck MANUAL DIFFERENTIAL STAT 12/08/2024 1 2:09 PM PROCESS ENGINEERING TECHNICIAN Malignant neoplasm of overlapping sites of right lung (HCC) Squamous cell carcinoma of head and neck DIFFERENTIAL AUTO STAT 12/08/2024 12: 09 PM PROCESS ENGINEERING TECHNICIAN Malignant neoplasm of overlapping sites of right lung (HCC) Squamous cell carcinoma of head and neck THYROID FUNCTION CASCADE Routine 12/08/2024 12:09 PM PROCESS ENGINEERING TECHNICIAN Malignant neoplasm of overlapping sites of right lung (HCC) Squamous cell carcinoma of head and neck COMPREHENSIVE METABOLIC PANEL STAT 12/08/2024 12:09 PM PROCESS ENGINEERING TECHNICIAN Malignant neoplasm of overlapping sites of right lung (HCC) Squamous cell carcinoma of head and neck CBC WITH AUTO DIFFERENTIAL STAT 12/08/2024 12:09 PM PROCESS ENGINEERING TECHNICIAN Malignant neoplasm of overlapping sites of right lung (HCC) Squamous cell carcinoma of head and neck MRI BRAIN W WO CONTRAST Schedule Routine, Read Routine (OP Routine) 12/08/2024 11:36 AM PROCESS ENGINEERING TECHNICIAN Malignant neoplasm of overlapping sites of right lung (HCC) PET/CT FDG SKULL TO THIGH Schedule Routine, Read Routine (OP Routine) 11/29/2024 12:31 PM PROCESS ENGINEERING TECHNICIAN Malignant neoplasm of overlapping sites of right lung (HCC) POCT GLUCOSE DEVICE Routine 11/29/2024 1 1:03 AM PROCESS ENGINEERING TECHNICIAN EGFR STAT 11/24/2024 11:10 AM PROCESS ENGINEERING TECHNICIAN Malignant neoplasm of overlapping sites of right lung (HCC) DIFFERENTIAL AUTO Routine 11/24/2024 11: 10 AM PROCESS ENGINEERING TECHNICIAN Malignant neoplasm of overlapping sites of right lung (HCC) CBC WITH AUTO DIFFERENTIAL Routine 11/24/2024 11:10 AM PROCESS ENGINEERING TECHNICIAN Malignant neoplasm of overlapping sites of right lung (HCC) COMPREHENSIVE METABOLIC PANEL STAT 11/24/2024 11:10 AM PROCESS ENGINEERING TECHNICIAN Malignant neoplasm of overlapping sites of right lung (HCC) TSH Routine 11/24/2024 11:10 AM PROCESS ENGINEERING TECHNICIAN Malignant neoplasm of overlapping sites of right lung (HCC) CT CHEST WO CONTRAST Schedule Routine, Read Routine (OP Routine) 11/17/2024 1:06 PM PROCESS ENGINEERING TECHNICIAN Malignant neoplasm of overlapping sites of right lung (HCC) from Last 3 Months Results * eGFR (01/26/2025 11:34 AM CDT) eGFR 86 >=60 mL/min/1. 73 m2 Comment: Interpretive Data Reference Interval Normal >/= 90 mL/min/1.73m2 Mildly decreased* 60 - 89 mL/min/1.73m2 Mildly to moderately decreased 45 - 59 mL/min/1.73m2 Moderately to severely decreased 30 - 44 mL/min/1.73m2 Severely decreased 15 - 29 mL/min/1.73m2 Kidney Failure < 15 mL/min/1.73m2 *Relative to young adult level Estimated glomerular filtration rate is determined by the 2020 CKD-EPI equation recommended by the National Kidney Foundation (A Unifying Approach to GFR Estimation: Recommendations of the NKF-ASK Task Force on Reassessing the Inclusion of Race in Diagnosing Kidney Disease, JASN 2020). The CKD-EPI equation should not be used for patients with unstable renal function and has not been validated in children and those over 70. Current interpretive data was last reviewed 2021. Testing performed by: [facility], [address] [place] [address]., [address] Blood 01/26/2025 11:3 4 AM CDT 01/26/2025 11:36 AM CDT us Kevin Lerner MD LAB BLOOD ORDERABLES Fin al Result TESSYAB [address] [facility] Department [place] [address] * (ABNORMAL) Differential, auto (01/26/2025 11:34 AM CDT) Neutrophil abs 35.17(H) 1.50 - 6.50 K/cumm Comment:Testing performed by : [address] [address] Imm gran abs 1.88(H) 0.00 - 0.10 K/cumm [facility] Comment:Testing performed by : [address] [address] Lymphocyte abs 0.68(L) 0.80 - 3.30 K/cumm [facility] Comment:Testing performed by : [address], [place]., [address] Monocyte abs 1.27(H) 0.20 - 0.80 K/cumm [facility] Comment:Testing performed by : [address], [place]., [address] Eosinophil abs 0.01 0.00 - 0.50 K/cumm [facility] Comment:Testing performed by : [address] [address] Basophil abs 0.04 0.00 - 0.10 K/cumm [facility] Comment:Testing performed by : [address] [address] Neutrophil pct 90.1 % [facility] Comment: Interpretive Data Percent cell count reference ranges are not reported, since discordance with absolute values may lead to misinterpretation of CBC data. Current Interpretive Data was last revised on 2018. Testing performed by: [address] [address] Imm gran pct 4.8 % [facility] Comment: Interpretive Data Percent cell count reference ranges are not reported, since discordance with absolute values may lead to misinterpretation of CBC data. Current Interpretive Data was last revised on 2018. Testing performed by: [address] [address] Lymphocyte pct 1.7 % [facility] Comment: Interpretive Data Percent cell count reference ranges are not reported, since discordance with absolute values may lead to misinterpretation of CBC data. Current Interpretive Data was last revised on 2018. Testing performed by: [address] [address] Monocyte pct 3.3 % [facility] Comment: Interpretive Data Percent cell count reference ranges are not reported, since discordance with absolute values may lead to misinterpretation of CBC data. Current Interpretive Data was last revised on 2018. Testing performed by: [address] [address] Eosinophil pct 0.0 % [facility] Comment: Interpretive Data Percent cell count reference ranges are not reported, since discordance with absolute values may lead to misinterpretation of CBC data. Current Interpretive Data was last revised on 2018. Testing performed by: [address] [address] Basophil pct 0.1 % [facility] Comment: Interpretive Data Percent cell count reference ranges are not reported, since discordance with absolute values may lead to misinterpretation of CBC data. Current Interpretive Data was last revised on 2018. Testing performed by: [address] [address] Blood 01/26/2025 11:3 4 AM CDT 01/26/2025 11:36 AM CDT Kevin Lerner MD LAB BLOOD ORDERABLES Fin al Result [facility] Department [place] [address] * (ABNORMAL) CBC with auto differential (01/26/2025 11:34 AM CDT) WBC 39.05(H) 3.80 - 9.90 K/cumm Comment:Testing performed by : [address] [address] Hgb 12.2(L) 13.0 - 17.5 g/dL [facility] Comment:Testing performed by : [address] [address] Hct 35.5(L) 38.9 - 50.3 % [facility]IN Comment:Testing performed by : [address] [address] Plt 129(L) 150 - 400 K/cumm [facility] Comment:Testing performed by : [address] [address] MPV 9.6 9.1 - 12.3 fL ELVIN HATCH Comment:Testing performed by : [address] [address] RBC 3.82(L) 4.30 - 5.80 M/cumm [facility]IN Comment:Testing performed by : [address] [address] MCV 92.9 81.3 - 96.4 fL [facility] Comment:Testing performed by : [address] [address] MCH 31.9 27.1 - 33.3 pg [facility]IN Comment:Testing performed by : [address] [address] MCHC 34.4 32.3 - 35.7 g/dL [facility] Comment:Testing performed by : [address] [address] RDW CV 16.3(H) 11.1 - 14.9 % [facility]IN Comment:Testing performed by : [address] [address] RDW SD 54.4(H) 35.7 - 48.1 fL [facility] Comment:Testing performed by : [address] [address] NRBC abs 0.00 0.00 - 0.01 K/cumm [facility] Comment:Testing performed by : [address] [address] ANC Prelim 35.17(H) 1.50 - 6.50 K/cumm [facility] Comment: Interpretive Data The rapid ANC is a preliminary automated count and may vary from the final ANC (Neut Abs) reported in the WBC differential that follows. Current interpretive data was last revised 2025. Testing performed by: [address] [address] Morphologic Screen Results confirmed by manual morphology review. [facility] Comment:Testing performed by : [address] [address] Blood 01/26/2025 11:3 4 AM CDT 01/26/2025 11:36 AM CDT us Kevin Lerner MD LAB BLOOD ORDERABLES Fin al Result Performing Organization Address City/[facility] Co de Phone Number [address] [place] [address] * Creatine kinase (CK), total (01/26/2025 11:34 AM CDT) CK 121 40 - 300 Units/L Comment:Testing performed by : [address] [address] Blood 01/26/2025 11:3 4 AM CDT 01/26/2025 1:42 PM CDT us Kevin Lerner MD LAB BLOOD ORDERABLES Fin al Result Performing Organization Address [facility] Co de Phone Number [address] [place] [address] * (ABNORMAL) Comprehensive metabolic panel (01/26/2025 11:34 AM CDT) Sodium 136 135 - 145 mmol/L Comment:Testing performed by : [address] [address] Potassium, pl 3.9 3.3 - 4.9 mmol/L [facility]VIN Comment:Testing performed by : [address] [address] Chloride 99 97 - 110 mmol/L [facility]VIN Comment:Testing performed by : [address] [address] CO2 24 22 - 32 mmol/L [facility]IN Comment:Testing performed by : [address] [address] Anion gap 13 2 - 15 mmol/L ELIVN Comment:Testing performed by : [address] [address] BUN 18 6 - 25 mg/dL ELVIN Comment:Testing performed by : [address] [address] Creatinine 0.90 0.80 - 1.30 mg/dL [facility]VIN Comment:Testing performed by : [address] [address] Glucose 171 70 - 199 mg/dL [facility]VIN Comment: Interpretive Data Fasting glucose >/= 126 mg/dl is diagnostic for diabetes. Fasting is defined as no caloric intake for at least 8 hours. Fasting glucose between 100 mg/dl to 125 mg/dl is diagnostic of prediabetes. In a patient with classic symptoms of hyperglycemia or hyperglycemic crisis, a random glucose >/= 200 mg/dl is diagnostic for diabetes. In the absence of unequivocal hyperglycemia, results should be confirmed by repeat testing. The classification and Diagnosis of Diabetes Diabetes Care 2021; 46: S19-S40. Current interpretive data was last revised 2022. Testing performed by: [address] [address] Calcium 10.6(H) 8.5 - 10.3 mg/dL ELVIN Comment:Testing performed by : [address] [address] Bilirubin, total 0.4 0.1 - 1.2 mg/dL [facility] Comment:Testing performed by : [address] [address] Protein, pl 6.1(L) 6.5 - 8.5 g/dL [facility] Comment:Testing performed by : [address] [address] Albumin 3.8 3.5 - 5.0 g/dL [facility] Comment:Testing performed by : [address] [address] Alk phos 164(H) 40 - 130 Units/L [facility]IN Comment:Testing performed by : [address] [address] ALT 14 7 - 55 Units/L ELVIN Comment:Testing performed by : [address] [address] AST 16 10 - 50 Units/L [facility]IN Comment:Testing performed by : [address] [address] Blood 01/26/2025 11:3 4 AM CDT 01/26/2025 11:36 AM CDT us Kevin Lerner MD LAB BLOOD ORDERABLES Fin al Result Performing Organization Address City/[facility] Co de Phone Number ELVIN [address] [place] [address] * eGFR (01/05/2025 11:17 AM CDT) eGFR 61 >=60 mL/min/1. 73 m2 Comment: Interpretive Data Reference Interval Normal >/= 90 mL/min/1.73m2 Mildly decreased* 60 - 89 mL/min/1.73m2 Mildly to moderately decreased 45 - 59 mL/min/1.73m2 Moderately to severely decreased 30 - 44 mL/min/1.73m2 Severely decreased 15 - 29 mL/min/1.73m2 Kidney Failure < 15 mL/min/1.73m2 *Relative to young adult level Estimated glomerular filtration rate is determined by the 2020 CKD-EPI equation recommended by the National Kidney Foundation (A Unifying Approach to GFR Estimation: Recommendations of the NKF-ASK Task Force on Reassessing the Inclusion of Race in Diagnosing Kidney Disease, JASN 2020). The CKD-EPI equation should not be used for patients with unstable renal function and has not been validated in children and those over 70. Current interpretive data was last reviewed 2021. Testing performed by: [address] [address] Blood 01/05/2025 11:1 7 AM CDT 01/05/2025 11:17 AM CDT us Kevin Lerner MD LAB BLOOD ORDERABLES Fin al Result Performing Organization Address City/[facility]/ZIP Co de Phone Number ELVIN [facility]0 [facility] [place] [address] * (ABNORMAL) Differential, auto (01/05/2025 11:17 AM CDT) Neutrophil abs 30.6(H) 1.5 - 6.5 K/cumm Comment:Testing performed by : [address] [place] [address] Imm gran abs 0.6(H) 0.0 - 0.1 K/cumm CERNER Comment:Testing performed by : [address] [address] Lymphocyte abs 0.6(L) 0.8 - 3.3 K/cumm CERNER Comment:Testing performed by : [address] [address] Monocyte abs 1.0(H) 0.2 - 0.8 K/cumm CERNER Comment:Testing performed by : [address] [address] Eosinophil abs 0.0 0.0 - 0.5 K/cumm CERTIFFANI Comment:Testing performed by : [address] [address] Basophil abs 0.1 0.0 - 0.1 K/cumm [facility] Comment:Testing performed by : [address] [address] Neutrophil pct 92.7 % CERNER Comment: Interpretive Data Percent cell count reference ranges are not reported, since discordance with absolute values may lead to misinterpretation of CBC data. Current Interpretive Data was last revised on 2018. Testing performed by: [address] [address] Imm gran pct 1.8 % CERNER Comment: Interpretive Data Percent cell count reference ranges are not reported, since discordance with absolute values may lead to misinterpretation of CBC data. Current Interpretive Data was last revised on 2018. Testing performed by: [address] [address] Lymphocyte pct 1.9 % CERNER Comment: Interpretive Data Percent cell count reference ranges are not reported, since discordance with absolute values may lead to misinterpretation of CBC data. Current Interpretive Data was last revised on 2018. Testing performed by: [address] [address] Monocyte pct 3.2 % CERNER Comment: Interpretive Data Percent cell count reference ranges are not reported, since discordance with absolute values may lead to misinterpretation of CBC data. Current Interpretive Data was last revised on 2018. Testing performed by: [address] [address] Eosinophil pct 0.0 % ELVIN Comment: Interpretive Data Percent cell count reference ranges are not reported, since discordance with absolute values may lead to misinterpretation of CBC data. Current Interpretive Data was last revised on 2018. Testing performed by: [address] [address] Basophil pct 0.4 % [facility]IN Comment: Interpretive Data Percent cell count reference ranges are not reported, since discordance with absolute values may lead to misinterpretation of CBC data. Current Interpretive Data was last revised on 2018. Testing performed by: [address] [address] Blood 01/05/2025 11:1 7 AM CDT 01/05/2025 11:17 AM CDT us Kevin Lerner MD LAB BLOOD ORDERABLES Fin al Result [facility] [address] [facility] Department of Laboratories [place], [place] [id number] * (ABNORMAL) CBC with auto differential (01/05/2025 11:17 AM CDT) Pathologist [facility] WBC 33.0(H) 3.8 - 9.9 K/cumm Comment:Testing performed by : [address] [address] Hgb 14.4 13.0 - 17.5 g/dL ELVIN Comment:Testing performed by : [address] [address] Hct 42.1 38.9 - 50.3 % ELVIN Comment:Testing performed by : [address] [address] Plt 141(L) 150 - 400 K/cumm ELVIN Comment:Testing performed by : [address] [address] MPV 9.3 9.1 - 12.3 fL ELVIN HATCH Comment:Testing performed by : [address] [address] RBC 4.49 4.30 - 5.80 M/cumm ELVIN HATCH Comment:Testing performed by : [address] [address] MCV 93.8 81.3 - 96.4 fL ELVIN HATCH Comment:Testing performed by : [address] [address] MCH 32.1 27.1 - 33.3 pg ELVIN HATCH Comment:Testing performed by : [address] [address] MCHC 34.2 32.3 - 35.7 g/dL ELVIN HATCH Comment:Testing performed by : [address] [address] RDW CV 15.1(H) 11.1 - 14.9 % ELVIN Comment:Testing performed by : [address] [address] RDW SD 52.2(H) 35.7 - 48.1 fL ELVIN Comment:Testing performed by : [address] [address] NRBC abs 0.00 0.00 - 0.01 K/cumm ELVIN HATCH Comment:Testing performed by : [address] [address] Blood 01/05/2025 11:1 7 AM CDT 01/05/2025 11:17 AM CDT us Kevin Lerner MD LAB BLOOD ORDERABLES Fin al Result ELVIN [address] [facility] Department [place] [address] * (ABNORMAL) Comprehensive metabolic panel (01/05/2025 11:17 AM CDT) Sodium 136 135 - 145 mmol/L Comment:Testing performed by : [address] [address] Potassium, pl 4.2 3.3 - 4.9 mmol/L [facility] Comment:Testing performed by : [address] [address] Chloride 98 97 - 110 mmol/L [facility] Comment:Testing performed by : [address], [place]., [address] CO2 25 22 - 32 mmol/L [facility] Comment:Testing performed by : [address] [address] Anion gap 13 2 - 15 mmol/L [facility] Comment:Testing performed by : [address], [place]., [address] BUN 30(H) 6 - 25 mg/dL [facility] Comment:Testing performed by : [address], [place]., [address] Creatinine 1.20 0.80 - 1.30 mg/dL [facility] Comment:Testing performed by : [address] [address] Glucose 173 70 - 199 mg/dL [facility] Comment: Interpretive Data Fasting glucose >/= 126 mg/dl is diagnostic for diabetes. Fasting is defined as no caloric intake for at least 8 hours. Fasting glucose between 100 mg/dl to 125 mg/dl is diagnostic of prediabetes. In a patient with classic symptoms of hyperglycemia or hyperglycemic crisis, a random glucose >/= 200 mg/dl is diagnostic for diabetes. In the absence of unequivocal hyperglycemia, results should be confirmed by repeat testing. The classification and Diagnosis of Diabetes Diabetes Care 202; 46: S19-S40. Current interpretive data was last revised 2022. Testing performed by: [address] [address] Calcium 11.0(H) 8.5 - 10.3 mg/dL [facility] Comment:Testing performed by : [address] [address] Bilirubin, total 0.6 0.1 - 1.2 mg/dL [facility] Comment:Testing performed by : [address] [address] Protein, pl 7.1 6.5 - 8.5 g/dL ELVIN HATCH Comment:Testing performed by : [facility], [address] [place] [address]., [address] Albumin 4.1 3.5 - 5.0 g/dL ELVIN HATCH Comment:Testing performed by : [address] [address] Alk phos 150(H) 40 - 130 Units/L ELVIN Comment:Testing performed by : [address], [address] ALT 11 7 - 55 Units/L ELVIN Comment:Testing performed by : [address], [address] AST 11 10 - 50 Units/L ELVIN Comment:Testing performed by : [address], [address] Blood 01/05/2025 11:1 7 AM CDT 01/05/2025 11:17 AM CDT us Kevin Lerner MD LAB BLOOD ORDERABLES Fin al Result Performing Organization Address City/[facility]/ZIP Co de Phone Number [place] [address] [facility] Department [place] [address] * RAD ONC ARIA SESSION SUMMARY (12/28/2024 1:14 PM CDT) Course Name [id number] ARIA Course Plan Date 12/08/2024 3:05 PM ARIA Elapsed Days 13 ARIA Treatment Start Date 12/15/2024 ARIA Treatment Site DPV BRAIN ARIA Dose Given To Date (cGy) 3,000 ARIA Session Dosage Given (cGy) 300 ARIA Plan ID RAMÍREZ WBRT ARIA Fractions Treated 10 ARIA Prescribed Dose Per Fraction (cGy) 300 ARIA Prescribed Total Dose (cGy) 3,000 ARIA 12/28/2024 1:14 PM CDT us Not In File Miscellaneous RADIATION ONCOLOGY ORD ERABLES Final Result ARIA * RAD ONC ARIA SESSION SUMMARY (12/27/2024 1:13 PM CDT) Course Name [id number] ARIA Course Plan Date 12/08/2024 3:05 PM ARIA Elapsed Days 12 ARIA Treatment Start Date 12/15/2024 ARIA Treatment Site DPV BRAIN ARIA Dose Given To Date (cGy) 2,700 ARIA Session Dosage Given (cGy) 300 ARIA Plan ID RAMÍREZ WBRT ARIA Fractions Treated 9 ARIA Prescribed Dose Per Fraction (cGy) 300 ARIA Prescribed Total Dose (cGy) 3,000 ARIA 12/27/2024 1:13 PM CDT us Not In File Miscellaneous RADIATION ONCOLOGY ORD ERABLES Final Result Performing Organization Address [facility] Co de Phone Number SARA * RAD ONC ARIA SESSION SUMMARY (12/24/2024 1:19 PM PROCESS ENGINEERING TECHNICIAN) Course Name [id number] ARIA Course Plan Date 12/08/2024 3:05 PM ARIA Elapsed Days 9 ARIA Treatment Start Date 12/15/2024 ARIA Treatment Site DPV BRAIN ARIA Dose Given To Date (cGy) 2,400 ARIA Session Dosage Given (cGy) 300 ARIA Plan ID RAMÍREZ WBRT ARIA Fractions Treated 8 ARIA Prescribed Dose Per Fraction (cGy) 300 ARIA Prescribed Total Dose (cGy) 3,000 ARIA 12/24/2024 1:19 PM PROCESS ENGINEERING TECHNICIAN us Not In File Miscellaneous RADIATION ONCOLOGY ORD ERABLES Final Result ARIA * [facility] xT DNA and RNA - Tumor Only (12/23/2024 5:27 PM PROCESS ENGINEERING TECHNICIAN) Reason for Study To identify somatic and germline mutations relevant to patient's cancer. 01/17/2025 3:55 PM CDT [facility] Genetic Diseases Assessed Cancer 01/17/2025 3:55 PM CDT [facility] Description of Ranges of DNA Sequences Examined 648 gene panel 01/17/2025 3:55 PM CDT [facility] Overall Interpretation positive 01/17/2025 3:55 PM CDT [facility] MSI Stable 01/17/2025 3:55 PM CDT [facility] TMB 14.7 m/MB 01/17/2025 3:55 PM CDT [facility] Portal [email or web address] 01/17/2025 3:55 PM CDT [facility] Comment:[facility] link PD-L1 (22C3) Combined Positive Score 40 01/17/2025 3:55 PM CDT [facility] PD-L1 (22C3) Tumor Proportion Score 40 % 01/17/2025 3:55 PM CDT [facility] Low Coverage Regions [id number] 01/17/2025 3:55 PM CDT [facility] Therapy Count 1 01/17/2025 3:55 PM CDT [facility]: Potential Therapy 1 Gene: N/A Variant: N/A Match Type: tmb Agent: Pembrolizumab Drug Class: Anti-PD-1 MAb Tissue: Solid Tumors Association: Response Evidence Status: Consensus Evidence ID: FDA KDB Variant: TMB-High MSK Associated Evidence: MSK OncoKB, Level 1 Label: FDA On Label FDA Approved?: Yes On label?: Yes 01/17/2025 3:55 PM CDT [facility] Trial Count 3 01/17/2025 3:55 PM CDT [facility]: Clinical Trial Match 1 Clinical Trial NCT ID: [id number] Clinical Trial Title: [id number] Monotherapy and Combination Therapies in Advanced Solid Tumors Clinical Trial URL: [email or web address] Clinical Phase: Phase 1 Clinical Trial Matches: HRAS p.G13V mutation Clinical Trial Distance and Location: [address] [place] [address] 01/17/2025 3:55 PM CDT [facility] Tempus: Clinical Trial Match 2 Clinical Trial NCT ID: [id number] Clinical Trial Title: TAPUR: Testing the Use of Food and Drug Administration (FDA) Approved Drugs That Target a Specific Abnormality in a Tumor Gene in People With Advanced Stage Cancer Clinical Trial URL: [email or web address] Clinical Phase: Phase 2 Clinical Trial Matches: CDKN2A deletion, CDKN2B deletion, TMB-High [facility] [place] 01/17/2025 3:55 PM CDT [facility] Tempus: Clinical Trial Match 3 Clinical Trial NCT ID: [id number] Clinical Trial Title: Study Of ATRN-119 In Patients With Advanced Solid Tumors Clinical Trial URL: [email or web address] Clinical Phase: Phase 1/Phase 2 Clinical Trial Matches: 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 No gene rearrangements nor reportable altered splicing events were identified from RNA sequencing. 01/17/2025 3:55 PM CDT [facility] Germline Variant Note No normal sample was received, therefore tumor/normal matched analysis was not performed. 01/17/2025 3:55 PM CDT [facility] HLA-A Typing A*03:01,A*29:02 025 3:55 PM CDT [facility] HLA-B Typing B*14:02,B*44:03 025 3:55 PM CDT [facility] HLA-C Typing C*08:94,C*16:01 025 3:55 PM CDT [facility] HLA-A Ambiguous Alleles Yes 01/17/2025 3:55 PM CDT [facility] HLA-B Ambiguous Alleles Yes 01/17/2025 3:55 PM CDT [facility] HLA-C Ambiguous Alleles Yes 01/17/2025 3:55 PM CDT [facility] HLA-A Sample Type Tumor Only 025 3:55 PM CDT [facility] HLA-B Sample Type Tumor Only 025 3:55 PM CDT [facility] HLA-C Sample Type Tumor Only 025 3:55 PM CDT [facility] Tissue specimen (specimen) 12/23/2024 5:27 PM PROCESS ENGINEERING TECHNICIAN 12/30/2024 10:07 AM CDT Narrative This result has genomic variants that were not included in this document. us Kevin Lerner MD LAB GENETIC TESTING Vania l Result [facility] [address] [facility], [address] [phone] [facility] [address] [facility], [place] [address] * RAD ONC ARIA SESSION SUMMARY (12/23/2024 1:11 PM PROCESS ENGINEERING TECHNICIAN) Course Name [id number] 025 ARIA Course Plan Date 12/08/2024 3:05 PM ARIA Elapsed Days 8 ARIA Treatment Start Date 12/15/2024 ARIA Treatment Site DPV BRAIN ARIA Dose Given To Date (cGy) 2,100 ARIA Session Dosage Given (cGy) 300 ARIA Plan ID RAMÍREZ WBRT ARIA Fractions Treated 7 ARIA Prescribed Dose Per Fraction (cGy) 300 ARIA Prescribed Total Dose (cGy) 3,000 ARIA 12/23/2024 1:11 PM PROCESS ENGINEERING TECHNICIAN us Not In File Miscellaneous RADIATION ONCOLOGY ORD ERABLES Final Result ARIA * RAD ONC ARIA SESSION SUMMARY (12/22/2024 1:07 PM PROCESS ENGINEERING TECHNICIAN) Course Name [id number] 025 ARIA Course Plan Date 12/08/2024 3:05 PM ARIA Elapsed Days 7 ARIA Treatment Start Date 12/15/2024 ARIA Treatment Site DPV BRAIN ARIA Dose Given To Date (cGy) 1,800 ARIA Session Dosage Given (cGy) 300 ARIA Plan ID RAMÍREZ WBRT ARIA Fractions Treated 6 ARIA Prescribed Dose Per Fraction (cGy) 300 ARIA Prescribed Total Dose (cGy) 3,000 ARIA 12/22/2024 1:07 PM PROCESS ENGINEERING TECHNICIAN us Not In File Miscellaneous RADIATION ONCOLOGY ORD ERABLES Final Result SARA * RAD ONC ARIA SESSION SUMMARY (12/21/2024 1:10 PM PROCESS ENGINEERING TECHNICIAN) Course Name [id number] ARIA Course Plan Date 12/08/2024 3:05 PM ARIA Elapsed Days 6 ARIA Treatment Start Date 12/15/2024 ARIA Treatment Site DPV BRAIN ARIA Dose Given To Date (cGy) 1,500 ARIA Session Dosage Given (cGy) 300 ARIA Plan ID RAMÍREZ WBRT ARIA Fractions Treated 5 ARIA Prescribed Dose Per Fraction (cGy) 300 ARIA Prescribed Total Dose (cGy) 3,000 ARIA 12/21/2024 1:10 PM PROCESS ENGINEERING TECHNICIAN us Not In File Miscellaneous RADIATION ONCOLOGY ORD ERABLES Final Result Performing Organization Address [facility] de Phone Number SARA * RAD ONC ARIA SESSION SUMMARY (12/20/2024 1:18 PM PROCESS ENGINEERING TECHNICIAN) Course Name [id number] ARIA Course Plan Date 12/08/2024 3:05 PM ARIA Elapsed Days 5 ARIA Treatment Start Date 12/15/2024 ARIA Treatment Site DPV BRAIN ARIA Dose Given To Date (cGy) 1,200 ARIA Session Dosage Given (cGy) 300 ARIA Plan ID RAMÍREZ WBRT ARIA Fractions Treated 4 ARIA Prescribed Dose Per Fraction (cGy) 300 ARIA Prescribed Total Dose (cGy) 3,000 ARIA 12/20/2024 1:18 PM PROCESS ENGINEERING TECHNICIAN us Not In File Miscellaneous RADIATION ONCOLOGY ORD ERABLES Final Result Performing Organization Address City/State/[facility] Co de Phone Number ARIA * RAD ONC ARIA SESSION SUMMARY (12/17/2024 1:10 PM PROCESS ENGINEERING TECHNICIAN) Course Name [id number] ARIA Course Plan Date 12/08/2024 3:05 PM ARIA Elapsed Days 2 ARIA Treatment Start Date 12/15/2024 ARIA Treatment Site DPV BRAIN ARIA Dose Given To Date (cGy) 900 ARIA Session Dosage Given (cGy) 300 ARIA Plan ID RAMÍREZ WBRT ARIA Fractions Treated 3 ARIA Prescribed Dose Per Fraction (cGy) 300 ARIA Prescribed Total Dose (cGy) 3,000 ARIA 12/17/2024 1:10 PM PROCESS ENGINEERING TECHNICIAN us Not In File Miscellaneous RADIATION ONCOLOGY ORD ERABLES Final Result Performing Organization Address [facility] de Phone Number ARIA * RAD ONC ARIA SESSION SUMMARY (12/16/2024 1:11 PM PROCESS ENGINEERING TECHNICIAN) Course Name [id number] [id number] ARIA Course Plan Date 12/08/2024 3:05 PM ARIA Elapsed Days 1 ARIA Treatment Start Date 12/15/2024 ARIA Treatment Site DPV BRAIN ARIA Dose Given To Date (cGy) 600 ARIA Session Dosage Given (cGy) 300 ARIA Plan ID RAMÍREZ WBRT ARIA Fractions Treated 2 ARIA Prescribed Dose Per Fraction (cGy) 300 ARIA Prescribed Total Dose (cGy) 3,000 ARIA 12/16/2024 1:11 PM PROCESS ENGINEERING TECHNICIAN us Not In File Miscellaneous RADIATION ONCOLOGY ORD ERABLES Final Result Performing Organization Address City/[facility] Co de Phone Number ARIA * RAD ONC ARIA SESSION SUMMARY (12/15/2024 12:59 PM PROCESS ENGINEERING TECHNICIAN) Course Name [id number] [id number] ARIA Course Plan Date 12/08/2024 3:05 PM ARIA Elapsed Days 0 ARIA Treatment Start Date 12/15/2024 ARIA Treatment Site DPV BRAIN ARIA Dose Given To Date (cGy) 300 ARIA Session Dosage Given (cGy) 300 ARIA Plan ID RAMÍREZ WBRT ARIA Fractions Treated 1 ARIA Prescribed Dose Per Fraction (cGy) 300 ARIA Prescribed Total Dose (cGy) 3,000 ARIA 12/15/2024 12:5 9 PM PROCESS ENGINEERING TECHNICIAN us Not In File Miscellaneous RADIATION ONCOLOGY ORD ERABLES Final Result Performing Organization Address [facility] de Phone Number SARA * RAD ONC ARIA COURSE SUMMARY (12/14/2024 10:30 AM PROCESS ENGINEERING TECHNICIAN) Course Name [id number] _2023 ARIA Course Plan Date 09/13/2024 4:00 PM ARIA Elapsed Days 0 ARIA Treatment Start Date 09/22/2024 ARIA Treatment Site [id number] ARIA Dose Given To Date (cGy) 2,000 ARIA Session Dosage Given (cGy) 0 ARIA Plan ID RIGHT BR SRS ARIA Fractions Treated 1 ARIA Prescribed Dose Per Fraction (cGy) 2,000 ARIA Prescribed Total Dose (cGy) 2,000 ARIA 12/14/2024 10:3 0 AM PROCESS ENGINEERING TECHNICIAN us Not In File Miscellaneous RADIATION ONCOLOGY ORD ERABLES Final Result Performing Organization Address [facility] Phone Number SARA * US Guided Biopsy Lymph Node Superficial Left (12/13/2024 2:30 PM PROCESS ENGINEERING TECHNICIAN) Anatomical Region Laterality Modality Entire body N/A Ultrasound 12/18/2024 7:43 AM PROCESS ENGINEERING TECHNICIAN Narrative 12/18/2024 7:44 AM PROCESS ENGINEERING TECHNICIAN EXAM DESCRIPTION: US GUIDED NEEDLE BIOPSY SOFT TISSUE MASS; US GUIDED BIOPSY LYMPH NODE SUPERFICIAL LEFT HISTORY: CORE NEEDLE BIOPSY OF MASS ON BACK ; CORE NEEDLE BX LEFT AXILLARY MASS TECHNIQUE: Ultrasound assistance was provided to Dr. Penny core needle biopsy of left mid back mass and left axillary mass. Multiple images were presented for retrospective review. COMPARISON: None available. FINDINGS: The hypoechoic solid-appearing left mid back mass is 3.6 x 3.4 x 1.3 cm and the left axillary mass 2.4 x 2.8 x 1.9 cm. By report 418 gauge core needle passes were made of both the left axillary mass in the left mid back mass. IMPRESSION: Ultrasound assistance provided Dr. Penny for left axillary and mid back mass biopsies. Please see procedure report for further details. THIS IS AN ELECTRONICALLY VERIFIED FINAL REPORT 12/18/2024 7:44 AM - Electronically signed by Jero Orellana M.D. CH: Report ID: [id number] Reading Location: [id number] Procedure Note Jero Orellana Jr., MD - 12/18/2024 EXAM DESCRIPTION: US GUIDED NEEDLE BIOPSY SOFT TISSUE MASS; US GUIDEDBIOPSY LYMPH NODE SUPERFICIAL LEFT HISTORY: CORE NEEDLE BIOPSY OF MASS ON BACK ; CORE NEEDLE BX LEFT AXILLARY MASS TECHNIQUE: Ultrasound assistance was provided to Dr. Penny core needle biopsy of left mid back mass and left axillary mass. Multiple images were presented for retrospective review. COMPARISON: None available. FINDINGS: The hypoechoic solid-appearing left mid back mass is 3.6 x 3.4 x1.3 cm and the left axillary mass 2.4 x 2.8 x 1.9 cm. By report 418 gaugecore needle passes were made of both the left axillary mass in the left midback mass. IMPRESSION: Ultrasound assistance provided Dr. Penny for left axillaryand mid back mass biopsies. Please see procedure report for further details. THIS IS AN ELECTRONICALLY VERIFIED FINAL REPORT 12/18/2024 7:44 AM - Electronically signed by Jero Orellana M.D. CH: Report ID: [id number] Reading Location: [id number] us Vazquez Penny MD IMG US PROCEDURES Final Resu lt * US Guided Needle Biopsy Soft Tissue Mass (12/13/2024 2:30 PM PROCESS ENGINEERING TECHNICIAN) Anatomical Region Laterality Modality Body N/A Ultrasound 12/18/2024 7:43 AM PROCESS ENGINEERING TECHNICIAN Narrative 12/18/2024 7:44 AM PROCESS ENGINEERING TECHNICIAN EXAM DESCRIPTION: US GUIDED NEEDLE BIOPSY SOFT TISSUE MASS; US GUIDED BIOPSY LYMPH NODE SUPERFICIAL LEFT HISTORY: CORE NEEDLE BIOPSY OF MASS ON BACK ; CORE NEEDLE BX LEFT AXILLARY MASS TECHNIQUE: Ultrasound assistance was provided to Dr. Penny core needle biopsy of left mid back mass and left axillary mass. Multiple images were presented for retrospective review. COMPARISON: None available. FINDINGS: The hypoechoic solid-appearing left mid back mass is 3.6 x 3.4 x 1.3 cm and the left axillary mass 2.4 x 2.8 x 1.9 cm. By report 418 gauge core needle passes were made of both the left axillary mass in the left mid back mass. IMPRESSION: Ultrasound assistance provided Dr. Penny for left axillary and mid back mass biopsies. Please see procedure report for further details. THIS IS AN ELECTRONICALLY VERIFIED FINAL REPORT 12/18/2024 7:44 AM - Electronically signed by Jero Orellana M.D. CH: Report ID: [id number] Reading Location: [id number] Procedure Note Jero Orellana Jr., MD - 12/18/2024 EXAM DESCRIPTION: US GUIDED NEEDLE BIOPSY SOFT TISSUE MASS; US GUIDEDBIOPSY LYMPH NODE SUPERFICIAL LEFT HISTORY: CORE NEEDLE BIOPSY OF MASS ON BACK ; CORE NEEDLE BX LEFT AXILLARY MASS TECHNIQUE: Ultrasound assistance was provided to Dr. Penny core needle biopsy of left mid back mass and left axillary mass. Multiple images were presented for retrospective review. COMPARISON: None available. FINDINGS: The hypoechoic solid-appearing left mid back mass is 3.6 x 3.4 x1.3 cm and the left axillary mass 2.4 x 2.8 x 1.9 cm. By report 418 gaugecore needle passes were made of both the left axillary mass in the left midback mass. IMPRESSION: Ultrasound assistance provided Dr. Penny for left axillaryand mid back mass biopsies. Please see procedure report for further details. THIS IS AN ELECTRONICALLY VERIFIED FINAL REPORT 12/18/2024 7:44 AM - Electronically signed by Jero Orellana M.D. CH: Report ID: [id number] Reading Location: [id number] Vazquez Penny MD IMG US PROCEDURES Final Resu lt * Flow Leukemia/Lymphoma Lymph node (12/13/2024 2:10 PM PROCESS ENGINEERING TECHNICIAN) Reyes Stain Test Completed Comment:Testing performed by : [facility], [address] [place]., [address] Leukemia/Lymp perry Result See separate Surgical Pathology report. ELVIN Comment:Testing performed by : [facility], [address] [facility], [address] Lymph node 12/13/2024 2:10 PM PROCESS ENGINEERING TECHNICIAN 12/14/2024 3:00 PM PROCESS ENGINEERING TECHNICIAN Vazquez Penny MD LAB PATHOLOGY ORDERABLES Fin al Result Performing Organization Address City/[facility] Co de Phone Number [address] [place] [address] * Flow Leukemia/Lymphoma Lymph node (12/13/2024 1:58 PM PROCESS ENGINEERING TECHNICIAN) Reyes Stain Test Completed Comment:Testing performed by : [facility], [address] [place]., [address] Leukemia/Lymp perry Result See separate Surgical Pathology report. ELVIN Comment:Testing performed by : [facility], [address] [place]., [address] Lymph node 12/13/2024 1:58 PM PROCESS ENGINEERING TECHNICIAN 12/14/2024 3:00 PM PROCESS ENGINEERING TECHNICIAN Vazquez Penny MD LAB PATHOLOGY ORDERABLES Fin al Result Performing Organization Address City/[facility] Co de Phone Number [address] [place] [address] * Surgical pathology (12/13/2024 1:57 PM PROCESS ENGINEERING TECHNICIAN) Tissue specimen (specimen) (Lymph node, needle biopsy) 12/13/2024 1:57 PM PROCESS ENGINEERING TECHNICIAN Tissue specimen (specimen) (Lymph node, needle biopsy) 12/13/2024 1:58 PM PROCESS ENGINEERING TECHNICIAN Tissue specimen (specimen) (Mass/Tumor/Lesio n) 12/13/2024 2:10 PM PROCESS ENGINEERING TECHNICIAN Tissue specimen (specimen) (Mass/Tumor/Lesio n) 12/13/2024 2:11 PM PROCESS ENGINEERING TECHNICIAN Narrative PATHOLOGY [facility] - 12/16/2024 4:16 PM PROCESS ENGINEERING TECHNICIAN EPIC results best viewed via link to PDF [facility] [place] [address] Note to Patients: This report may contain a detailed description of human tissue sent by a health care provider to the laboratory for pathologic evaluation. The content of this report is essential for diagnosis and may provide important critical findings. This information may be unfamiliar to patients to review without a medical professional present. It is advised that the patient review this report in the presence of a health care provider who can answer questions and explain the details. SURGICAL PATHOLOGY REPORT FINAL WITH ADDENDUM Patient Name: VIKKI MARRERO Gender: Fatmata : 1945 (Age: 79) Address: [address] [place], [place] [id number] Hospital #: [id number] Taken:12/13/2024 Received:12/13/2024 Reported: 12/16/2024 Patient Type: MHE ANCILLAR Service: DEFAULT Location: Physician(s): Charles Douglass D.O. Thomas X Thomas, DO Diagnosis: A. Left axillary mass, biopsy - Poorly differentiated carcinoma (see comment) B. Left axillary mass for flow cytometry - Too few cells for flow cytometric analysis C. Mid back mass, biopsy - Poorly differentiated carcinoma D. Mid back mass for flow cytometry - Too few cells for flow cytometric analysis ju/12/15/2024 15:36 By this signature, I attest that the above diagnosis is based upon my personal examination of the slides(and/or other material indicated in the diagnosis). Stu Hays M.D. Report Electronically Reviewed and Signed Out By Stu Hays M.D. 12/16/2024 16:16:14 Diagnosis Comment Intraoperative Consultation: Rapid On-Site Evaluation A. Left axillary mass, core biopsy touch prep Evaluation Episode #1: Adequate Preliminary Diagnosis if Provided: N/A Total Evaluation Episodes: 1 Dr. Edmond Guan 2025 B. Left mid back, core biopsy touch prep Evaluation Episode #1: Adequate Preliminary Diagnosis if Provided: N/A Total Evaluation Episodes: 1 Dr. Edmond Figueroa 2025 I personally examined the relevant preparation(s) or a microscopic image of the relevant preparation(s) for the specimen(s) while the surgical procedure was still underway and rendered or confirmed the diagnosis(es). Edmond Guan M.D. Microscopic Description and Comment: Tumor cells are positive for keratin 5/6 and keratin AE1/AE3/PCK26, while negative for desmin, BRAF V600E, melan A, HMB-45, SOX10 and S100 protein. The findings are consistent with squamous cell carcinoma versus another carcinoma type with squamous differentiation. Clinical and imaging correlation is recommended. Microscopic examination substantiates the above cited diagnosis. Flow cytometry Part B: Left axillary mass Specimen quality: Paucicellular Flow cytometry was not performed due to insufficient viable cell counts. A Reyes-Giemsa stained cytospin from the flow cytometry specimen was examined for internal senior software quality analyst purposes. (juac 12/15/24) Part D: Mid back mass Specimen quality: Paucicellular Flow cytometry was not performed due to insufficient viable cell counts. A Reyes-Giemsa stained cytospin from the flow cytometry specimen was examined for internal senior software quality analyst purposes. (juac 12/15/24) Flow cytometry and cytospins (parts B and D) reviewed by Dr. Rajan.[facility] History: The patient is an 79-year-old man with an axillary mass. Operative Procedure: Biopsy axillary mass Specimen(s) Received: A: Left axillary mass B: Left axillary mass C: Mid back mass D: Mid back mass Gross Description: Received in four formalin jars labeled with the patient's identifiers. A. Labeled left axillary mass are three strands of soft titus-white tissue (0.3-1.1 cm and 0.1 cm in diameter). The specimen is submitted entirely in cassettes A1 and A2. Jar 0 B. Specimen B was submitted for flow cytometry. C. Labeled mid back lesion are three thread-like strands of soft titus tissue (0.2- 0.4 cm in length and less than 0.1 cm in diameter). The specimen is submitted entirely in cassettes C1 and C2. Jar 0 D. Specimen D was submitted for flow cytometry. 11/21/2412/14/2024 13:45 PA(s): LIOR Keen (ASCP)REANNA FLOW CYTOMETRY: LEUKEMIA PANEL Specimen information: Part B: Tissue Cell count: <0.01x10^6 Viability: 82 Too few cells to perform flow cytometric analysis FLOW CYTOMETRY: LEUKEMIA PANEL Specimen information: Part D: Tissue Cell count: 0.04x10^6 Viability: 2 Too few cells to perform flow cytometric analysis By this signature, I attest that the above diagnosis is based upon my personal examination of the slides(and/or other material). Addenda/Procedures Addendum Ordered:12/28/2024Status:Signed OutAddendum Complete:12/28/2024y:Stu Hays M.D.Addendum Signed Out:12/28/2024 Addendum Comment A request for Molecular Archived Tissue Testing was received, which is to be performed on tissue from the attached case. The report, slides and blocks for the case were retrieved from archives. The pathologist whose signature appears below reviewed the original pathology report, examined H&E slides, and selected the blocks appropriate to the specifications of the ordered molecular analysis. Materials were forwarded to [facility] where the Tempus xT test will be performed. An addendum report will be issued when the results of this molecular test are available. By this signature, I attest that the above diagnosis is based upon my personal examination of the slides(and/or other material indicated in the diagnosis). Stu Hays M.D.Report Electronically Reviewed and Signed Out By Stu Hays M.D. 12/28/2024 14:03:48 Addendum Ordered:01/18/2025Status:Signed OutAddendum Complete:01/18/2025y:Stu Hays M.D.Addendum Signed Out:01/18/2025 Addendum Diagnosis A digital scan of the original reference lab report will begin on page two of this addendum. This testing was ordered at the request of Dr. Kevin Lerner. Block A1 was selected, and sent for the testing referenced below. By this signature, I attest that the above diagnosis is based upon my personal examination of the slides(and/or other material indicated in the diagnosis). Stu Hays M.D.Report Electronically Reviewed and Signed Out By Stu Hays M.D. 01/18/2025 13:11:01 The xT 595 test was performed at [address], [address], [place] [address]. The performance characteristics of some immunohistochemical stains, fluorescence in-situ hybridization tests and immunophenotyping by flow cytometry cited in this report (if any) were determined by the Surgical Pathology and Flow Cytometry Departments at [facility] as part of an ongoing manufacturing quality engineer program and in compliance with federally mandated regulations drawn from the Clinical Laboratory Improvement Act of 1988 (CLIA '88). Some of these tests rely on the use of analyte specific reagents and are subject to specific labeling requirements by the US Food and Drug Administration. Such diagnostic tests may only be performed in a facility that is certified by the Department of Health and Human Services as a high complexity laboratory under CLIA '88. The FDA has determined that such clearance or approval is not necessary. This test is used for clinical purposes. It should not be regarded as investigational or for research. Nevertheless, federal rules concerning the medical use of analyte specific reagents require that the following disclaimer be attached to the report: This test was developed and its performance characteristics determined by the Surgical Pathology and Flow Cytometry Departments of [facility]. It has not been cleared or approved by the U. S. Food and Drug Administration. IMAGES AND SCANNED DOCUMENTS, IF INCLUDED, ONLY VIEWABLE IN PDF VERSION OF REPORT Vazquez Penny MD LAB PATHOLOGY ORDERABLES Fin al Result PATHOLOGY [facility] * eGFR (12/08/2024 12:09 PM PROCESS ENGINEERING TECHNICIAN) eGFR 61 >=60 mL/min/1. 73 m2 Comment: Interpretive Data Reference Interval Normal >/= 90 mL/min/1.73m2 Mildly decreased* 60 - 89 mL/min/1.73m2 Mildly to moderately decreased 45 - 59 mL/min/1.73m2 Moderately to severely decreased 30 - 44 mL/min/1.73m2 Severely decreased 15 - 29 mL/min/1.73m2 Kidney Failure < 15 mL/min/1.73m2 *Relative to young adult level Estimated glomerular filtration rate is determined by the 2020 CKD-EPI equation recommended by the National Kidney Foundation (A Unifying Approach to GFR Estimation: Recommendations of the NKF-ASK Task Force on Reassessing the Inclusion of Race in Diagnosing Kidney Disease, JASN 2020). The CKD-EPI equation should not be used for patients with unstable renal function and has not been validated in children and those over 70. Current interpretive data was last reviewed 2021. Testing performed by: [address] [address] Blood 12/08/2024 12:0 9 PM PROCESS ENGINEERING TECHNICIAN 12/08/2024 12:11 PM PROCESS ENGINEERING TECHNICIAN us Kevin Lerner MD LAB BLOOD ORDERABLES Fin al Result ELVIN HATCH [address] [facility] Department of Laboratories [place], [place] [id number] * (ABNORMAL) Differential, auto (12/08/2024 12:09 PM PROCESS ENGINEERING TECHNICIAN) Pathologist [facility] Neutrophil abs 24.3(H) 1.5 - 6.5 K/cumm Comment:Testing performed by : [address] [address] Imm gran abs 0.6(H) 0.0 - 0.1 K/cumm ELVIN HATCH Comment:Testing performed by : [address] [address] Lymphocyte abs 0.7(L) 0.8 - 3.3 K/cumm ELVIN HATCH Comment:Testing performed by : [address] [address] Monocyte abs 0.9(H) 0.2 - 0.8 K/cumm [facility] Comment:Testing performed by : [address] [address] Eosinophil abs 0.0 0.0 - 0.5 K/cumm [facility] Comment:Testing performed by : [address] [address] Basophil abs 0.1 0.0 - 0.1 K/cumm [facility] Comment:Testing performed by : [address] [address] Neutrophil pct 91.4 % [facility] Comment: Interpretive Data Percent cell count reference ranges are not reported, since discordance with absolute values may lead to misinterpretation of CBC data. Current Interpretive Data was last revised on 2018. Testing performed by: [address] [address] Imm gran pct 2.3 % [facility] Comment: Interpretive Data Percent cell count reference ranges are not reported, since discordance with absolute values may lead to misinterpretation of CBC data. Current Interpretive Data was last revised on 2018. Testing performed by: [address] [address] Lymphocyte pct 2.6 % [facility] Comment: Interpretive Data Percent cell count reference ranges are not reported, since discordance with absolute values may lead to misinterpretation of CBC data. Current Interpretive Data was last revised on 2018. Testing performed by: [address] [address] Monocyte pct 3.2 % [facility] Comment: Interpretive Data Percent cell count reference ranges are not reported, since discordance with absolute values may lead to misinterpretation of CBC data. Current Interpretive Data was last revised on 2018. Testing performed by: [address] [address] Eosinophil pct 0.1 % [facility] Comment: Interpretive Data Percent cell count reference ranges are not reported, since discordance with absolute values may lead to misinterpretation of CBC data. Current Interpretive Data was last revised on 2018. Testing performed by: [address] [place] [address] Basophil pct 0.4 % ELVIN Comment: Interpretive Data Percent cell count reference ranges are not reported, since discordance with absolute values may lead to misinterpretation of CBC data. Current Interpretive Data was last revised on 2018. Testing performed by: [address] [address] Blood 12/08/2024 12:0 9 PM PROCESS ENGINEERING TECHNICIAN 12/08/2024 12:11 PM PROCESS ENGINEERING TECHNICIAN Kevin Lerner MD LAB BLOOD ORDERABLES Fin al Result Performing Organization Address [facility] Co de Phone Number [address] [place] [address] * Thyroid Function [place] (12/08/2024 12:09 PM PROCESS ENGINEERING TECHNICIAN) TSH 1.33 0.30 - 4.20 mcIUnit/mL Comment:Testing performed by : [address] [address] Blood 12/08/2024 12:0 9 PM PROCESS ENGINEERING TECHNICIAN 12/08/2024 1:43 PM PROCESS ENGINEERING TECHNICIAN us Kevin Lerner MD LAB BLOOD ORDERABLES Fin al Result Performing Organization Address [facility] Co de Phone Number [address] [place] [address] * (ABNORMAL) CBC with auto differential (12/08/2024 12:09 PM PROCESS ENGINEERING TECHNICIAN) WBC 26.5(H) 3.8 - 9.9 K/cumm Comment:Testing performed by : [address] [address] Hgb 13.9 13.0 - 17.5 g/dL ELVIN HATCH Comment:Testing performed by : [address] [address] Hct 40.1 38.9 - 50.3 % ELVIN Comment:Testing performed by : [address] [address] Plt 151 150 - 400 K/cumm ELVIN Comment:Testing performed by : [address] [address] MPV 9.6 9.1 - 12.3 fL ELVIN HATCH Comment:Testing performed by : [address], [address] RBC 4.26(L) 4.30 - 5.80 M/cumm ELVIN Comment:Testing performed by : [address] [address] MCV 94.1 81.3 - 96.4 fL ELVIN Comment:Testing performed by : [address], [address] MCH 32.6 27.1 - 33.3 pg ELVIN Comment:Testing performed by : [address] [address], [address] MCHC 34.7 32.3 - 35.7 g/dL ELVIN Comment:Testing performed by : [address] [address] RDW CV 15.1(H) 11.1 - 14.9 % ELVIN Comment:Testing performed by : [address] [address] RDW SD 52.3(H) 35.7 - 48.1 fL ELVIN Comment:Testing performed by : [address] [address] NRBC abs 0.00 0.00 - 0.01 K/cumm ELVIN Comment:Testing performed by : [address] [address] Blood 12/08/2024 12:0 9 PM PROCESS ENGINEERING TECHNICIAN 12/08/2024 12:11 PM PROCESS ENGINEERING TECHNICIAN us Kevin Lerner MD LAB BLOOD ORDERABLES Fin al Result ELVIN [address] [facility] Department [place] [address] * Manual Differential (12/08/2024 12:09 PM PROCESS ENGINEERING TECHNICIAN) Differential Auto Comment:Testing performed by : [address] [address] RBC morphology Consistent with RBC Indicies ELVIN HATCH Comment:Testing performed by : [address] [address] Platelet estimate Adequate ELVIN HATCH Comment:Testing performed by : [address] [address] Blood 12/08/2024 12:0 9 PM PROCESS ENGINEERING TECHNICIAN 12/08/2024 12:11 PM PROCESS ENGINEERING TECHNICIAN us Kevin Lerner MD LAB BLOOD ORDERABLES Fin al Result ELVIN HATCH [address] [place] [address] Department [place] [address] * (ABNORMAL) Comprehensive metabolic panel (12/08/2024 12:09 PM PROCESS ENGINEERING TECHNICIAN) Pathologist [facility] Sodium 135 135 - 145 mmol/L Comment:Testing performed by : [address] [address] Potassium, pl 4.3 3.3 - 4.9 mmol/L ELVIN Comment:Testing performed by : [address] [address] Chloride 98 97 - 110 mmol/L ELVIN Comment:Testing performed by : [address] [address] CO2 25 22 - 32 mmol/L ELVIN Comment:Testing performed by : [address] [address] Anion gap 12 2 - 15 mmol/L ELVIN Comment:Testing performed by : [address] [address] BUN 26(H) 6 - 25 mg/dL ELVIN Comment:Testing performed by : [address] [address] Creatinine 1.20 0.80 - 1.30 mg/dL ELVIN Comment:Testing performed by : [address] [address] Glucose 137 70 - 199 mg/dL ELVIN Comment: Interpretive Data Fasting glucose >/= 126 mg/dl is diagnostic for diabetes. Fasting is defined as no caloric intake for at least 8 hours. Fasting glucose between 100 mg/dl to 125 mg/dl is diagnostic of prediabetes. In a patient with classic symptoms of hyperglycemia or hyperglycemic crisis, a random glucose >/= 200 mg/dl is diagnostic for diabetes. In the absence of unequivocal hyperglycemia, results should be confirmed by repeat testing. The classification and Diagnosis of Diabetes Diabetes Care 2021; 46: S19-S40. Current interpretive data was last revised 2022. Testing performed by: [address] [address] Calcium 10.3 8.5 - 10.3 mg/dL ELVIN Comment:Testing performed by : [address] [address] Bilirubin, total 0.4 0.1 - 1.2 mg/dL ELVIN Comment:Testing performed by : [address] [address] Protein, pl 7.0 6.5 - 8.5 g/dL ELVIN Comment:Testing performed by : [address] [address] Albumin 4.0 3.5 - 5.0 g/dL ELVIN Comment:Testing performed by : [address] [address] Alk phos 124 40 - 130 Units/L ELVIN Comment:Testing performed by : [address] [address] ALT 10 7 - 55 Units/L [facility] Comment:Testing performed by : [address] [address] AST 9(L) 10 - 50 Units/L ELVIN Comment:Testing performed by : [address] [address] Blood 12/08/2024 12:0 9 PM PROCESS ENGINEERING TECHNICIAN 12/08/2024 12:11 PM PROCESS ENGINEERING TECHNICIAN us Kevin Lerner MD LAB BLOOD ORDERABLES Fin al Result ELVIN [address] [facility] Department [place] [address] * MRI Brain W WO Contrast (12/08/2024 11:36 AM PROCESS ENGINEERING TECHNICIAN) Anatomical Region Laterality Modality Head and Neck N/A Magnetic Resonan ce 12/08/2024 12:1 5 PM PROCESS ENGINEERING TECHNICIAN Narrative 12/08/2024 12:48 PM PROCESS ENGINEERING TECHNICIAN EXAM DESCRIPTION: MRI BRAIN W WO CONTRAST REASON FOR STUDY: Restaging lung ca Lung ca surveillance TECHNIQUE: Multiplanar imaging includes noncontrast T1, T2, FLAIR, diffusion with ADC map and post contrast T1 sequences. Additional sequence(s) sensitive to blood products. Images stored on PACS. CONTRAST TYPE/DOSE: 20mL of GADOTERATE MEGLUMINE 0.5 MMOL/ML INTRAVENOUS SOLUTION (SO) injected via intravenous COMPARISON: MRI brain dated 09/13/2024, 07/08/2024. CT head without contrast dated 09/09/2024, 03/11/2024 and 06/26/2023. FINDINGS: New multifocal metastases when compared to the previous MRI brain dated 09/13/2024. Susceptibility signal associated with almost all of these metastases suggesting blood degradation products and/or mineralization. Index anterior left frontal 2.5 x 2.8 cm metastases. Extensive surrounding vasogenic edema with compression of the frontal horn of the left lateral ventricle and 0.3 cm of fwyi-ve-fcobw midline shift. Smaller left occipital metastases including 1.3 x 2.1 cm (series 12, image 79) and a separate 1 x 0.6 cm (series 12, image 72). Surrounding vasogenic edema without significant midline shift. Smaller metastases, for example right frontal posterior 0.2 cm (series 12, image 129), right parietal lateral/inferior margin cortical 0.2 cm (series 12, image 80). Left frontal anterior/lateral margin 0.4 cm (series 12, image 94). Left frontal paramedian 0.2 cm enhancement (series 12, image 111) could be a superficial metastases or less likely dural base, attention on follow-up. No significant surrounding edema or mass effect. Left lateral pontine 0.7 x 0.8 cm metastases (series 12, image 49) with some surrounding edema and no significant mass effect on the 4th ventricle. Left cerebellar medial/inferior margin 1.6 x 1.5 cm metastases (series 12, image 34). There is some surrounding edema without significant mass effect on the 4th ventricle or crowding of the foramen magnum. Right cerebellar inferior margin 0.3 cm metastases or a vessel (series 12, image 23). Attention on follow-up. The right temporal lobe metastases noted on the previous MRI dated 09/13/2024 is no longer identified. Elsewhere in the brain no diffusion restriction to suggest acute/recent infarction. There is diffuse cerebral and cerebellar parenchymal volume loss. No hydrocephalus. Elsewhere in the brain the subcortical and periventricular white matter T2/FLAIR hyperintense signal is nonspecific but compatible with chronic microvascular ischemic type change in a patient of this age. Status post bilateral cataract eye surgeries. Mucosal thickening in the bilateral ethmoid air cells. Right maxillary sinus air-fluid level can be seen with acute sinusitis in the proper clinical scenario. Trace T2 hyperintensities in the mastoid air cells. IMPRESSION: 1. New multifocal supratentorial metastases when compared to the previous MRI brain dated 09/13/2024. Associated susceptibility signal suggesting blood products and/or mineralization. Dominant left frontal 2.8 cm metastases vasogenic edema compresses the frontal horn of the left lateral ventricle with mild rpuz-cq-socpy midline shift. 2. New multifocal infratentorial metastases. There is some surrounding edema without significant mass effect on the 4th ventricle or crowding of the foramen magnum. 3. The right temporal metastases noted on the previous MRI dated 09/13/2024 is no longer identified. 4. Right maxillary sinus air-fluid level can be seen with acute sinusitis in the proper clinical scenario. The above findings discussed with Dr. Kevin Lerner via telephone by tx Dr. Benita Campbell on 12/08/2024 at 12:47 pm central standard time. THIS IS AN ELECTRONICALLY VERIFIED FINAL REPORT 12/08/2024 12:48 PM - Electronically signed by Rudy Campbell D.O. AP: FILOMENA Report ID: [id number] Reading Location: [id number] Procedure Note uRdy Campbell, DO - 12/08/2024 EXAM DESCRIPTION: MRI BRAIN W WO CONTRAST REASON FOR STUDY: Restaging lung ca Lung ca surveillance TECHNIQUE: Multiplanar imaging includes noncontrast T1, T2, FLAIR,diffusion with ADC map and post contrast T1 sequences. Additional sequence(s)sensitive to blood products. Images stored on PACS. CONTRAST TYPE/DOSE: 20mL of GADOTERATE MEGLUMINE 0.5 MMOL/ML INTRAVENOUS SOLUTION (SO) injected via intravenous COMPARISON: MRI brain dated 09/13/2024, 07/08/2024. CT head without contrast dated 09/09/2024, 03/11/2024 and 06/26/2023. FINDINGS: New multifocal metastases when compared to the previous MRIbrain dated 09/13/2024. Susceptibility signal associated with almost all ofthese metastases suggesting blood degradation products and/or mineralization. Index anterior left frontal 2.5 x 2.8 cm metastases. Extensivesurrounding vasogenic edema with compression of the frontal horn of the left lateral ventricle and 0.3 cm of phgt-fo-dsudx midline shift. Smaller leftoccipital metastases including 1.3 x 2.1 cm (series 12, image 79) and a separate 1 x0.6 cm (series 12, image 72). Surrounding vasogenic edema without significant midline shift. Smaller metastases, for example right frontal posterior 0.2 cm (series 12, image 129), right parietal lateral/inferior margin cortical 0.2 cm (, image 80). Left frontal anterior/lateral margin 0.4 cm (series 12, image94). Left frontal paramedian 0.2 cm enhancement (series 12, image 111) couldbe a superficial metastases or less likely dural base, attention on follow-up.No significant surrounding edema or mass effect. Left lateral pontine 0.7 x 0.8 cm metastases (series 12, image 49) withsome surrounding edema and no significant mass effect on the 4th ventricle.Left cerebellar medial/inferior margin 1.6 x 1.5 cm metastases (series 12,image 34). There is some surrounding edema without significant mass effect onthe 4th ventricle or crowding of the foramen magnum. Right cerebellarinferior margin 0.3 cm metastases or a vessel (series 12, image 23). Attention on follow-up. The right temporal lobe metastases noted on the previous MRI dated111/13/2023 is no longer identified. Elsewhere in the brain no diffusion restriction to suggest acute/recent infarction. There is diffuse cerebral and cerebellar parenchymal volumeloss. No hydrocephalus. Elsewhere in the brain the subcortical andperiventricular white matter T2/FLAIR hyperintense signal is nonspecific but compatiblewith chronic microvascular ischemic type change in a patient of this age. Status post bilateral cataract eye surgeries. Mucosal thickening in the bilateral ethmoid air cells. Right maxillary sinus air-fluid level can be seen with acute sinusitis in the proper clinical scenario. Trace T2 hyperintensities in the mastoid air cells. IMPRESSION: 1. New multifocal supratentorial metastases when compared to theprevious MRI brain dated 09/13/2024. Associated susceptibility signal suggestingblood products and/or mineralization. Dominant left frontal 2.8 cm metastases vasogenic edema compresses the frontal horn of the left lateral ventriclewith mild rryc-ae-iprnd midline shift. 2. New multifocal infratentorial metastases. There is some surrounding edema without significant mass effect on the 4th ventricle or crowding ofthe foramen magnum. 3. The right temporal metastases noted on the previous MRI dated111/13/2023 is no longer identified. 4. Right maxillary sinus air-fluid level can be seen with acutesinusitis in the proper clinical scenario. The above findings discussed with Dr. Kevin Lerner viatelephone by tx Dr. Benita Campbell on 12/08/2024 at 12:47 pm central standard time. THIS IS AN ELECTRONICALLY VERIFIED FINAL REPORT 12/08/2024 12:48 PM - Electronically signed by Rudy Campbell D.O. AP: AP Report ID: [id number] Reading Location: [id number] us Kevin Lerner MD IMG MRI PROCEDURES Final Result * PET/CT FDG Skull to Thigh (11/29/2024 12:31 PM PROCESS ENGINEERING TECHNICIAN) Anatomical Region Laterality Modality N/A Positron Emissio n Tomography (PET) 11/29/2024 2:43 PM PROCESS ENGINEERING TECHNICIAN Impressions 11/29/2024 3:22 PM PROCESS ENGINEERING TECHNICIAN 1. Progressive metastatic disease, with new hypermetabolic deposits in multiple muscles as described above. 2. Posterior mid changes in the right lung, with likely residual FDG avid disease in the right hilum. 3. Enlarging right adrenal metastasis, 4. New serosal deposit upon the descending colon, 5. Centrally necrotic inferior mesenteric chain conglomerate. Dictated by: Gokul aFrias MD The radiology attending physician has personally reviewed this study, and had reviewed and/or edited this written report and agrees with it. Electronically signed by: Lavell Valente DO Narrative 11/29/2024 3:22 PM PROCESS ENGINEERING TECHNICIAN EXAMINATION: TUMOR FDG-PET/CT IMAGING DATE OF STUDY: 11/29/2024 SCANNER: [facility] RADIOPHARMACEUTICAL: 17.9 mCi F-18 Fluorodeoxyglucose (FDG) i.v. 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 The study is requested for detection of suspected recurrence. Subsequent treatment strategy. TECHNIQUE: The patient's fasting blood glucose level, measured by glucometer before injection of FDG, was 146 mg/dL. After intravenous administration of FDG, noncontrast CT images were obtained for attenuation correction and for fusion with emission PET images to allow for anatomical localization of PET findings. Emission PET images were then obtained. The study was interpreted on the [employer] workstation. The mean liver SUV (reported for senior software quality analyst purposes) is 2.6. The total scanned area was skull base to proximal thighs. Images of the body were obtained starting 62 minutes after injection of tracer. All reported SUVs are maximum SUVs, unless otherwise specified. COMPARISON: CT 11/17/2024, 09/09/2024, PET/CT 06/29/2024, CT 06/26/2024. DESCRIPTORS OF LESION FDG AVIDITY: Minimal: <= blood pool Mild: > blood pool and <= liver Moderate: > liver and <= 2x SUVmax liver Moderate to marked: >2x SUVmax liver and <= 3x SUVmax liver Marked: > 3x SUVmax liver FINDINGS: Interval development of numerous foci of metastatic disease, predominantly involving skeletal muscle. These include a new focus in the right deltoid, left supraspinatus, left serratus anterior with maximum SUV of 15.2, measuring 2.7 x 2.0 cm in size proximal aspect of the right gluteus blaine, and left gluteus medius. Additional new sites of metastatic disease include the subcutaneous tissues of the left mid back, at the level of the T11 vertebral body, maximum SUV of 11.5. There is a new right hepatic dome lesion measuring 1.1 cm in size. There is significant interval enlargement of a right adrenal metastasis. Posterior mid changes are seen in the right lung, with volume loss and radiation associated fibrosis. Linearly oriented FDG uptake along the radiation port likely represents posttreatment changes. There is however focal right hilar uptake, with maximum SUV of 5.5, as demonstrated on image 93, which is concerning for residual disease. There is a new focus of FDG uptake positioned along the anterior aspect of the descending colon, with maximum SUV of 11.9, measuring 1.6 cm in greatest transaxial dimension, favored to represent a serosal deposit. There is a large centrally necrotic mesenteric deposit measuring 4.8 x 4.5 cm in size, along the inferior mesenteric chain with intense radiotracer uptake, compatible with wanda metastatic disease. Post radiation changes are seen in the lower thoracic spine. T4 compression deformity is without underlying FDG correlate, most compatible with spinal compression fracture in the setting of osteopenia. The most FDG-avid lesion is left serratus anterior intramuscular deposit, has a maximum SUV of 15.2, and approximate axial dimensions of 2.7 x 2.0 cm in size. Additional CT findings: Mottled material noted in the right partially imaged maxillary sinus. Right internal jugular approach port catheter terminates in the caval atrial junction. There is extensive coronary atherosclerotic disease. Aortic atherosclerotic calcifications are seen. Left greater than right bulky atherosclerotic calcifications at the carotid bifurcations are also noted. Extensive colonic diverticular disease without evidence of diverticulitis. The prostate is enlarged. Procedure Note Lavell Valente DO - 11/29/2024 EXAMINATION: TUMOR FDG-PET/CT IMAGING DATE OF STUDY: 11/29/2024 SCANNER: [facility] RADIOPHARMACEUTICAL: 17.9 mCi F-18 Fluorodeoxyglucose (FDG) i.v. 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 The study is requested for detection of suspected recurrence. Subsequent treatment strategy. TECHNIQUE: The patient's fasting blood glucose level, measured by glucometer before injection of FDG, was 146 mg/dL. After intravenous administration of FDG, noncontrast CT images were obtained for attenuation correction and for fusion with emission PET images to allow for anatomical localization of PET findings. Emission PET images were then obtained. The study was interpreted on the [employer] workstation. The mean liver SUV (reported for senior software quality analyst purposes) is 2.6. The total scanned area was skull base to proximal thighs. Images of the body were obtained starting 62 minutes after injection of tracer. All reported SUVs are maximum SUVs, unless otherwise specified. COMPARISON: CT 11/17/2024, 09/09/2024, PET/CT 06/29/2024, CT 06/26/2024. DESCRIPTORS OF LESION FDG AVIDITY: Minimal: <= blood pool Mild: > blood pool and <= liver Moderate: > liver and <= 2x SUVmax liver Moderate to marked: >2x SUVmax liver and <= 3x SUVmax liver Marked: > 3x SUVmax liver FINDINGS: Interval development of numerous foci of metastatic disease, predominantly involving skeletal muscle. These include a new focus in the right deltoid, left supraspinatus, left serratus anterior with maximum SUV of 15.2, measuring 2.7 x 2.0 cm in size proximal aspect of the right gluteus blaine, and left gluteus medius. Additional new sites of metastatic disease include the subcutaneous tissues of the left mid back, at the level of the T11 vertebral body, maximum SUV of 11.5. There is a new right hepatic dome lesion measuring 1.1 cm in size. There is significant interval enlargement of a right adrenal metastasis. Posterior mid changes are seen in the right lung, with volume loss and radiation associated fibrosis. Linearly oriented FDG uptake along the radiation port likely represents posttreatment changes. There is however focal right hilar uptake, with maximum SUV of 5.5, as demonstrated on image 93, which is concerning for residual disease. There is a new focus of FDG uptake positioned along the anterior aspect of the descending colon, with maximum SUV of 11.9, measuring 1.6 cm in greatest transaxial dimension, favored to represent a serosal deposit. There is a large centrally necrotic mesenteric deposit measuring 4.8 x 4.5 cm in size, along the inferior mesenteric chain with intense radiotracer uptake, compatible with wanda metastatic disease. Post radiation changes are seen in the lower thoracic spine. T4 compression deformity is without underlying FDG correlate, most compatible with spinal compression fracture in the setting of osteopenia. The most FDG-avid lesion is left serratus anterior intramuscular deposit, has a maximum SUV of 15.2, and approximate axial dimensions of 2.7 x 2.0 cm in size. Additional CT findings: Mottled material noted in the right partially imaged maxillary sinus. Right internal jugular approach port catheter terminates in the caval atrial junction. There is extensive coronary atherosclerotic disease. Aortic atherosclerotic calcifications are seen. Left greater than right bulky atherosclerotic calcifications at the carotid bifurcations are also noted. Extensive colonic diverticular disease without evidence of diverticulitis. The prostate is enlarged. IMPRESSION: 1. Progressive metastatic disease, with new hypermetabolic deposits in multiple muscles as described above. 2. Posterior mid changes in the right lung, with likely residual FDG avid disease in the right hilum. 3. Enlarging right adrenal metastasis, 4. New serosal deposit upon the descending colon, 5. Centrally necrotic inferior mesenteric chain conglomerate. Dictated by: Gokul Farias MD The radiology attending physician has personally reviewed this study, and had reviewed and/or edited this written report and agrees with it. Electronically signed by: Lavell Valente DO Kevin Lerner MD IMG PET PROCEDURES Final Result * POCT glucose (11/29/2024 11:03 AM PROCESS ENGINEERING TECHNICIAN) Glucose, POC 146 70 - 199 mg/dL Comment: For Glucose values <35 mg/dl when Hematocrit is >60 mg/dl,the test may not accurately detect significant hypoglycemia,and testing in the Laboratory should be considered if clinically indicated. Blood 11/29/2024 11:0 3 AM PROCESS ENGINEERING TECHNICIAN 11/29/2024 11:03 AM PROCESS ENGINEERING TECHNICIAN us Kevin Lerner MD LAB POCT ORDERABLES - DE VICE Final Result [facility] [address] [place] [address] * eGFR (11/24/2024 11:10 AM PROCESS ENGINEERING TECHNICIAN) eGFR 76 >=60 mL/min/1. 73 m2 Comment: Interpretive Data Reference Interval Normal >/= 90 mL/min/1.73m2 Mildly decreased* 60 - 89 mL/min/1.73m2 Mildly to moderately decreased 45 - 59 mL/min/1.73m2 Moderately to severely decreased 30 - 44 mL/min/1.73m2 Severely decreased 15 - 29 mL/min/1.73m2 Kidney Failure < 15 mL/min/1.73m2 *Relative to young adult level Estimated glomerular filtration rate is determined by the 2020 CKD-EPI equation recommended by the National Kid[employer] (A Unifying Approach to GFR Estimation: Recommendations of the NKF-ASK Task Force on Reassessing the Inclusion of Race in Diagnosing Kidney Disease, JASN 2020). The CKD-EPI equation should not be used for patients with unstable renal function and has not been validated in children and those over 70. Current interpretive data was last reviewed 2021. Testing performed by: [address] [address] Blood 11/24/2024 11:1 0 AM PROCESS ENGINEERING TECHNICIAN 11/24/2024 11:12 AM PROCESS ENGINEERING TECHNICIAN us Kevin Lerner MD LAB BLOOD ORDERABLES Fin al Result [facility] [address] [facility] Department [place] [address] * (ABNORMAL) Differential, auto (11/24/2024 11:10 AM PROCESS ENGINEERING TECHNICIAN) Neutrophil abs 15.7(H) 1.5 - 6.5 K/cumm Comment:Testing performed by : [address] [address] Imm gran abs 0.6(H) 0.0 - 0.1 K/cumm ELVIN HATCH Comment:Testing performed by : [address] [address] Lymphocyte abs 1.2 0.8 - 3.3 K/cumm [facility] Comment:Testing performed by : [address], [place]., [address] Monocyte abs 1.1(H) 0.2 - 0.8 K/cumm CERTIFFANI Comment:Testing performed by : [address], [place]., [address] Eosinophil abs 0.1 0.0 - 0.5 K/cumm [facility] Comment:Testing performed by : [address], [place]., [address] Basophil abs 0.1 0.0 - 0.1 K/cumm [facility] Comment:Testing performed by : [address] [address] Neutrophil pct 83.9 % [facility] Comment: Interpretive Data Percent cell count reference ranges are not reported, since discordance with absolute values may lead to misinterpretation of CBC data. Current Interpretive Data was last revised on 2018. Testing performed by: [address] [address] Imm gran pct 3.1 % [facility] Comment: Interpretive Data Percent cell count reference ranges are not reported, since discordance with absolute values may lead to misinterpretation of CBC data. Current Interpretive Data was last revised on 2018. Testing performed by: [address] [address] Lymphocyte pct 6.2 % [facility] Comment: Interpretive Data Percent cell count reference ranges are not reported, since discordance with absolute values may lead to misinterpretation of CBC data. Current Interpretive Data was last revised on 2018. Testing performed by: [address] [address] [address] Monocyte pct 5.6 % [facility] Comment: Interpretive Data Percent cell count reference ranges are not reported, since discordance with absolute values may lead to misinterpretation of CBC data. Current Interpretive Data was last revised on 2018. Testing performed by: [address] [address] Eosinophil pct 0.6 % [facility] Comment: Interpretive Data Percent cell count reference ranges are not reported, since discordance with absolute values may lead to misinterpretation of CBC data. Current Interpretive Data was last revised on 2018. Testing performed by: [address] [address] Basophil pct 0.6 % [facility] Comment: Interpretive Data Percent cell count reference ranges are not reported, since discordance with absolute values may lead to misinterpretation of CBC data. Current Interpretive Data was last revised on 2018. Testing performed by: [address] [address] Blood 11/24/2024 11:1 0 AM PROCESS ENGINEERING TECHNICIAN 11/24/2024 11:12 AM PROCESS ENGINEERING TECHNICIAN us Kevin Lerner MD LAB BLOOD ORDERABLES Fin al Result [facility] [address] [facility] Department [place] [address] * (ABNORMAL) CBC with auto differential (11/24/2024 11:10 AM PROCESS ENGINEERING TECHNICIAN) WBC 18.7(H) 3.8 - 9.9 K/cumm Comment:Testing performed by : [address] [address] Hgb 12.5(L) 13.0 - 17.5 g/dL [facility] Comment:Testing performed by : [address] [address] Hct 36.9(L) 38.9 - 50.3 % [facility] Comment:Testing performed by : [address] [address] Plt 165 150 - 400 K/cumm [facility] Comment:Testing performed by : [address] [address] MPV 10.0 9.1 - 12.3 fL [facility] Comment:Testing performed by : [address] [address] RBC 3.96(L) 4.30 - 5.80 M/cumm [facility] Comment:Testing performed by : [address] [address] MCV 93.2 81.3 - 96.4 fL [facility] Comment:Testing performed by : [address], [address] MCH 31.6 27.1 - 33.3 pg [facility] Comment:Testing performed by : [address] [address] MCHC 33.9 32.3 - 35.7 g/dL [facility] Comment:Testing performed by : [address], [address] RDW CV 14.5 11.1 - 14.9 % [facility] Comment:Testing performed by : [address], [address] RDW SD 50.1(H) 35.7 - 48.1 fL [facility] Comment:Testing performed by : [address], [address] NRBC abs 0.00 0.00 - 0.01 K/cumm [facility] Comment:Testing performed by : [address], [address] Blood 11/24/2024 11:1 0 AM PROCESS ENGINEERING TECHNICIAN 11/24/2024 11:12 AM PROCESS ENGINEERING TECHNICIAN us Kevin Lerner MD LAB BLOOD ORDERABLES Fin al Result Performing Organization Address [facility] Phone Number [facility] [address] [facility] Department [place] [address] * TSH (11/24/2024 11:10 AM PROCESS ENGINEERING TECHNICIAN) Thyroid Stimulating Hormone 1.66 0.30 - 4.20 mcIUnit/mL Comment:Testing performed by : [address], [address] Blood 11/24/2024 11:1 0 AM PROCESS ENGINEERING TECHNICIAN 11/24/2024 11:47 AM PROCESS ENGINEERING TECHNICIAN Kevin Lerner MD LAB BLOOD ORDERABLES Fin al Result [facility] [address] [facility] Department [place] [address] * (ABNORMAL) Comprehensive metabolic panel (11/24/2024 11:10 AM PROCESS ENGINEERING TECHNICIAN) Sodium 134(L) 135 - 145 mmol/L Comment:Testing performed by : [address] [address] Potassium, pl 4.0 3.3 - 4.9 mmol/L [facility] Comment:Testing performed by : [address], [place]., [address] Chloride 97 97 - 110 mmol/L [facility] Comment:Testing performed by : [address] [address] CO2 25 22 - 32 mmol/L [facility] Comment:Testing performed by : [address], [place]., [address] Anion gap 12 2 - 15 mmol/L [facility] Comment:Testing performed by : [address] [address] BUN 20 6 - 25 mg/dL [facility] Comment:Testing performed by : [address] [address] Creatinine 1.00 0.80 - 1.30 mg/dL [facility] Comment:Testing performed by : [address] [address] Glucose 122 70 - 199 mg/dL [facility] Comment: Interpretive Data Fasting glucose >/= 126 mg/dl is diagnostic for diabetes. Fasting is defined as no caloric intake for at least 8 hours. Fasting glucose between 100 mg/dl to 125 mg/dl is diagnostic of prediabetes. In a patient with classic symptoms of hyperglycemia or hyperglycemic crisis, a random glucose >/= 200 mg/dl is diagnostic for diabetes. In the absence of unequivocal hyperglycemia, results should be confirmed by repeat testing. The classification and Diagnosis of Diabetes Diabetes Care 2021; 46: S19-S40. Current interpretive data was last revised 2022. Testing performed by: [address], [place]., [address] Calcium 10.2 8.5 - 10.3 mg/dL [facility] Comment:Testing performed by : [facility], [address] [place] [address]., [address] Bilirubin, total 0.3 0.1 - 1.2 mg/dL [facility] Comment:Testing performed by : [address] [address] Protein, pl 6.8 6.5 - 8.5 g/dL [facility] Comment:Testing performed by : [address] [address] Albumin 3.6 3.5 - 5.0 g/dL [facility] Comment:Testing performed by : [address] [address] Alk phos 128 40 - 130 Units/L [facility] Comment:Testing performed by : [address] [address] ALT 8 7 - 55 Units/L [facility] Comment:Testing performed by : [address] [address] AST 11 10 - 50 Units/L [facility] Comment:Testing performed by : [address] [address] Blood 11/24/2024 11:1 0 AM PROCESS ENGINEERING TECHNICIAN 11/24/2024 11:12 AM PROCESS ENGINEERING TECHNICIAN us Kevin Lerner MD LAB BLOOD ORDERABLES Fin al Result Performing Organization Address City/State/[facility] Co nd Phone Number [facility] [address] [facility] Department [place] [address] * CT chest without contrast (11/17/2024 1:06 PM PROCESS ENGINEERING TECHNICIAN) Anatomical Region Laterality Modality Body N/A Computed Tomogra phy 11/19/2024 8:10 AM PROCESS ENGINEERING TECHNICIAN Narrative 11/19/2024 8:27 AM PROCESS ENGINEERING TECHNICIAN EXAM DESCRIPTION: CT CHEST WO CONTRAST REASON FOR STUDY: Cough, lung cancer, SOB Cough, persistent; lung cancer, SOB Dx: Malignant neoplasm of overlapping sites of right lung TECHNIQUE: CT scan of the chest performed without intravenous contrast using helical scanning technique. Reconstructed coronal and sagittal MPR images reviewed. All images stored on PACS. Automated exposure control was used as a dose optimization technique for this examination. COMPARISON: 09/09/2024. 06/26/2024. FINDINGS: The sensitivity for detection of solid visceral lesions is diminished without the use of intravenous contrast. LUNGS: There is new right lower lobe moderate-sized area of consolidation with air bronchogram, and volume loss. There is also consolidation with air bronchogram involving the right middle lobe with worsened volume loss additional mild ground-glass within the lower and middle lobes. There is mild dependent atelectasis. The right perihilar mass is difficult to measure given noncontrast technique but does appear grossly decreased in size compared to the prior examination. PLEURA: Tiny trace right pleural effusion is present. No pneumothorax MEDIASTINUM/LONDON: No adenopathy is seen by size criteria. HEART: Normal heart size. No pericardial effusion. Mitral annulus calcifications are present. Aortic annulus calcifications are present. CORONARY ARTERY CALCIFICATION: Severe multi-vessel coronary artery calcification is present. VASCULATURE: There is athero sclerotic calcification without thoracic aortic aneurysm. AXILLA: No adenopathy. CHEST WALL: No masses. No subcutaneous air. HARDWARE/LINES/TUBES: Right internal jugular port catheter terminates in the superior vena cava. UPPER ABDOMEN: There is a 3.4 cm right adrenal gland nodule; metastasis is not excluded.. Partially visualized low-attenuation exophytic lesion in the right kidney upper pole measures up to 17 mm and has increased in size. This previously measured cyst density and is now of slightly higher density. This could represent hemorrhage into a cyst but is incompletely characterized. MUSCULOSKELETAL: T4 mild superior endplate compression fracture is new from 09/09/2024. There is generalized osteopenia. OTHER: No other significant abnormality. IMPRESSION: Right middle lobe and new right lower lobe consolidations with air bronchogram and volume loss. This is at least in part atelectasis but superimposed pneumonia is not excluded on this noncontrast CT. Grossly decreased size of the right perihilar mass. 3.4 cm right adrenal gland nodule. Metastasis is a consideration. New T4 mild superior endplate compression fracture. Increased size of a partially visualized right kidney upper pole exophytic lesion, which previously measured cyst density and now measures slightly higher density. This could represent hemorrhage into a cyst but is incompletely characterized. This can be further evaluated with renal ultrasound. THIS IS AN ELECTRONICALLY VERIFIED FINAL REPORT 11/19/2024 8:27 AM - Electronically signed by Balwinder Sam M.D. MZ T: Report ID: [id number] Reading Location: [place] [address] Procedure Note Balwinder Sam MD - 11/19/2024 EXAM DESCRIPTION: CT CHEST WO CONTRAST REASON FOR STUDY: Cough, lung cancer, SOB Cough, persistent; lung cancer, SOB Dx: Malignant neoplasm ofoverlapping sites of right lung TECHNIQUE: CT scan of the chest performed without intravenous contrastusing helical scanning technique. Reconstructed coronal and sagittal MPR images reviewed. All images stored on PACS. Automated exposure control was usedas a dose optimization technique for this examination. COMPARISON: 09/09/2024. 06/26/2024. FINDINGS: The sensitivity for detection of solid visceral lesions is diminished without the use of intravenous contrast. LUNGS: There is new right lower lobe moderate-sized area ofconsolidation with air bronchogram, and volume loss. There is also consolidation withair bronchogram involving the right middle lobe with worsened volume loss additional mild ground-glass within the lower and middle lobes. There ismild dependent atelectasis. The right perihilar mass is difficult to measuregiven noncontrast technique but does appear grossly decreased in size comparedto the prior examination. PLEURA: Tiny trace right pleural effusion is present. No pneumothorax MEDIASTINUM/LONDON: No adenopathy is seen by size criteria. HEART: Normal heart size. No pericardial effusion. Mitral annulus calcifications are present. Aortic annulus calcifications are present. CORONARY ARTERY CALCIFICATION: Severe multi-vessel coronary artery calcification is present. VASCULATURE: There is athero sclerotic calcification without thoracicaortic aneurysm. AXILLA: No adenopathy. CHEST WALL: No masses. No subcutaneous air. HARDWARE/LINES/TUBES: Right internal jugular port catheter terminates inthe superior vena cava. UPPER ABDOMEN: There is a 3.4 cm right adrenal gland nodule; metastasisis not excluded.. Partially visualized low-attenuation exophytic lesion inthe right kidney upper pole measures up to 17 mm and has increased in size.This previously measured cyst density and is now of slightly higher density.This could represent hemorrhage into a cyst but is incompletely characterized. MUSCULOSKELETAL: T4 mild superior endplate compression fracture is newfrom 09/09/2024. There is generalized osteopenia. OTHER: No other significant abnormality. IMPRESSION: Right middle lobe and new right lower lobe consolidations with air bronchogram and volume loss. This is at least in part atelectasis but superimposed pneumonia is not excluded on this noncontrast CT. Grossly decreased size of the right perihilar mass. 3.4 cm right adrenal gland nodule. Metastasis is a consideration. New T4 mild superior endplate compression fracture. Increased size of a partially visualized right kidney upper poleexophytic lesion, which previously measured cyst density and now measures slightly higher density. This could represent hemorrhage into a cyst but is incompletely characterized. This can be further evaluated with renal ultrasound. THIS IS AN ELECTRONICALLY VERIFIED FINAL REPORT 11/19/2024 8:27 AM - Electronically signed by Balwinder Sam M.D. 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 Relationship Specialty Start Date End Date Braeden Valdovinos DO [address] [place], [place] [id number] PCP - General Internal Medicine 07/06/24 Carlyle Rawls MD [address] [facility] [place] [address] Referring Physician Dermatology 12/06/22 Jake Payne MD [address] [address] Radiation Oncologist Radiation Oncology 11/27/23 Braeden Valdovinos DO [address] [facility] [address] [place], [place] [id number] Referring Physician Internal Medicine 07/01/24 Kevin Lerner MD [address] [place] [address] MEDICAL ONCOLOGY, [facility] [address] [place] [address] Internal Medicine 01/26/25
--- OUTSIDE RECORDS SUMMARY | 2025-02-11 23:26 | XMS_ITS | Clinical Summary ---
Author Organization [facility] Address [address] [place] [phone] Care Team Providers Care Automatic Grinding Machine Operator Name Role Phone Carlyle Rawls MD Unavailable [phone] Jake Payne MD Unavailable [phone] Braeden Valdovinos DO Unavailable Braeden Valdovinos DO Primary Care Provider [phone] Kevin Lerner MD Unavailable [phone] Allergies Active Allergy Reactions Criticality Noted Date [...] t be different from the original. Vikki Aroraand 1945 78-year-old male who is referred here [...] 11/18/2022 (Dr. 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 Berry) -scalp resection, right voodoo resection, local facial advancement snail flap, 12/26/2022 [...] skin and subcutaneous lesion along the right voodoo (axial image 50/374) most compatible with residual [...] (12/20/2022): Added automatically from request for surgery [id number] Encounters Date Type Department Care Team Description 02/03/2025 Telephone [facility] Medical Office Building 2 Radiation Oncology [address] [place] [phone] Renetta Michelle 02/02/2025 1:30 PM CDT Office Visit [facility] Medical Office Building 2 Radiation Oncology [address] [place] [phone] Jake Payne MD Squamous cell carcinoma of head and neck (Primary Dx) 02/02/2025 12:00 PM CDT Formerly [facility] at [address] [place] [phone] Dehydration (Primary Dx); Malignant neoplasm of overlapping sites of right lung (HCC); Malignant neoplasm metastatic to brain (HCC) 02/02/2025 11:30 AM CDT Office Visit [facility] Physicians [facility] Oncology [address] [place] [phone] Kevin Lerner MD Malignant neoplasm of overlapping sites of right lung (HCC) (Primary Dx); Malignant neoplasm metastatic to brain (HCC); Squamous cell carcinoma of head and neck; Encounter for person encountering health services 01/27/2025 4:00 PM CDT Infusion [facility] at [address] [phone] Encounter for person encountering health services (Primary Dx); Malignant neoplasm of overlapping sites of right lung (HCC); Squamous cell carcinoma of head and neck 01/27/2025 Telephone [facility] Physicians [facility] Oncology [address] [place] [phone] Susanne Barrow RN 01/26/2025 12:30 PM CDT Infusion [facility] at [address] [phone] Encounter for person encountering health services (Primary Dx); Malignant neoplasm of overlapping sites of right lung (HCC); Squamous cell carcinoma of head and neck 01/26/2025 12:00 PM CDT Office Visit [facility] Physicians [facility] Oncology [address] [place] [phone] Kevin Lerner MD Malignant neoplasm of overlapping sites of right lung (HCC) (Primary Dx); Malignant neoplasm metastatic to brain (HCC); Squamous cell carcinoma of head and neck; Encounter for person encountering health services; Fall, sequela; Generalized weakness 01/26/2025 11:30 AM CDT Clinical Support [facility] at [address] [address] Malignant neoplasm of overlapping sites of right lung (HCC); Squamous cell carcinoma of head and neck; Encounter for person encountering health services; Malignant neoplasm metastatic to brain (HCC); Fall, sequela 01/12/2025 2:30 PM CDT Infusion [facility] at [address] [phone] Dehydration (Primary Dx); Malignant neoplasm of overlapping sites of right lung (HCC); Squamous cell carcinoma of head and neck; Malignant neoplasm metastatic to brain (HCC) 01/12/2025 2:00 PM CDT Office Visit [facility] Oncology [address] [place] [phone] Sandra Lopez, MANAGER COMPLETIONS Malignant neoplasm of overlapping sites of right lung (HCC) (Primary Dx); Malignant neoplasm metastatic to brain (HCC); Squamous cell carcinoma of head and neck; Encounter for person encountering health services 01/06/2025 3:45 PM CDT Infusion [address] [phone] Encounter for person encountering health services (Primary Dx); Malignant neoplasm of overlapping sites of right lung (HCC); Squamous cell carcinoma of head and neck 01/05/2025 12:15 PM CDT Infusion [address] [phone] Encounter for person encountering health services (Primary Dx); Malignant neoplasm of overlapping sites of right lung (HCC); Squamous cell carcinoma of head and neck 01/05/2025 11:45 AM CDT Office Visit [facility] Physicians [facility] Oncology [address] [place] [phone] Kevin Lerner MD Malignant neoplasm of overlapping sites of right lung (HCC) (Primary Dx); Squamous cell carcinoma of head and neck; Malignant neoplasm metastatic to brain (HCC); Encounter for person encountering health services 01/05/2025 11:15 AM CDT Clinical Support [address] [address] Malignant neoplasm of overlapping sites of right lung (HCC); Squamous cell carcinoma of head and neck; Encounter for person encountering health services 01/05/2025 Orders Only [facility] Physicians [facility] Oncology [address] [place] [phone] Kevin Lerner MD Muscular deconditioning (Primary Dx) 01/04/2025 Telephone [facility] Oncology [address] [place] [phone] Virgen Coffey RN 12/28/2024 1:00 PM CDT Treatment [facility] Medical Office Building 2 Radiation Oncology [address] [place] [phone] Jake Payne MD 12/28/2024 Completion of Therapy [facility] Medical Office Building 2 Radiation Oncology [address] [place] [phone] Jake Payne MD 12/28/2024 Orders Only RAD ONC TREATMENTS Miscellaneous, Not In File 12/27/2024 1:00 PM CDT Treatment [facility] Medical Office Building 2 Radiation Oncology [address] [place] [phone] 12/27/2024 Orders Only RAD ONC TREATMENTS Miscellaneous, Not In File 12/24/2024 1:00 PM SHUTTLE FITTING SUPERVISOR Treatment [facility] Medical Office Building 2 Radiation Oncology [address] [place] [phone] 12/24/2024 OTV [facility] Medical Office Building 2 Radiation Oncology [address] [place] [phone] Jake Payne MD 12/24/2024 Orders Only RAD ONC TREATMENTS Miscellaneous, Not In File 12/23/2024 1:00 PM SHUTTLE FITTING SUPERVISOR Treatment [facility] Medical Office Building 2 Radiation Oncology [address] [place] [phone] 12/23/2024 Orders Only RAD ONC TREATMENTS Miscellaneous, Not In File 12/22/2024 2:45 PM SHUTTLE FITTING SUPERVISOR Office Visit [facility] Physicians [facility] Oncology [address] [place] [address] [address] [place] [phone] Kevin Lerner MD Malignant neoplasm of overlapping sites of right lung (HCC) (Primary Dx); Squamous cell carcinoma of head and neck; Metastasis to brain (HCC); Other fatigue 12/22/2024 1:00 PM SHUTTLE FITTING SUPERVISOR Treatment [facility] Medical Office Building 2 Radiation Oncology [address] [place] [phone] 12/22/2024 Orders Only RAD ONC TREATMENTS Miscellaneous, Not In File 12/21/2024 1:00 PM SHUTTLE FITTING SUPERVISOR Treatment [facility] Medical Office Building 2 Radiation Oncology [address] [place] [address] 12/21/2024 Orders Only RAD ONC TREATMENTS Miscellaneous, Not In File 12/20/2024 1:00 PM SHUTTLE FITTING SUPERVISOR Treatment [facility] Medical Office Building 2 Radiation Oncology [address] [place] [phone] 12/20/2024 Orders Only RAD ONC TREATMENTS Miscellaneous, Not In File 12/17/2024 1:00 PM SHUTTLE FITTING SUPERVISOR Treatment [facility] Medical Office Building 2 Radiation Oncology [address] [place] [address] 12/17/2024 OTV [facility] Medical Office Building 2 Radiation Oncology [address] [place] [phone] Jake Payne MD 12/17/2024 Orders Only RAD ONC TREATMENTS Miscellaneous, Not In File 12/16/2024 1:00 PM SHUTTLE FITTING SUPERVISOR Treatment [facility] Office Building 2 Radiation Oncology [address] [place] [phone] 12/16/2024 Orders Only RAD ONC TREATMENTS Miscellaneous, Not In File 12/15/2024 1:30 PM SHUTTLE FITTING SUPERVISOR Clinical Support [facility] Office Building 2 Radiation Oncology [address] [place] [phone] Malignant neoplasm of overlapping sites of right lung (HCC) (Primary Dx); Squamous cell carcinoma of head and neck; Dehydration 12/15/2024 1:00 PM SHUTTLE FITTING SUPERVISOR Treatment [facility] Office Building 2 Radiation Oncology [address] [place] [phone] Jake Payne MD 12/15/2024 12:45 PM SHUTTLE FITTING SUPERVISOR Treatment [facility] Office Building 2 Radiation Oncology [address] [place] [address] Jake Payne MD 12/15/2024 Orders Only RAD ONC TREATMENTS Miscellaneous, Not In File 12/14/2024 7:30 PM SHUTTLE FITTING SUPERVISOR Treatment [facility] Office Building 2 Radiation Oncology [address] [place] [address] 12/14/2024 Orders Only RAD ONC TREATMENTS Miscellaneous, Not In File 12/13/2024 1:12 PM SHUTTLE FITTING SUPERVISOR - 12/13/2024 11:59 PM SHUTTLE FITTING SUPERVISOR Hospital Encounter [facility] Ultrasound [address] [place] [phone] Vazquez Penny MD Mass on back Discharge Disposition: Discharge to home or self care 12/13/2024 1:12 PM SHUTTLE FITTING SUPERVISOR - 12/13/2024 11:59 PM SHUTTLE FITTING SUPERVISOR Hospital Encounter [facility] Ultrasound [address] [place] [address] Vazquez Penny MD Axillary mass, left Discharge Disposition: Discharge to home or self care 12/08/2024 2:00 PM SHUTTLE FITTING SUPERVISOR Treatment [facility] Medical Office Building 2 Radiation Oncology [address] [place] [phone] Jake Payne MD 12/08/2024 1:30 PM SHUTTLE FITTING SUPERVISOR Office Visit [facility] Medical Office Building 2 Radiation Oncology [address] [place] [phone] Jake Payne MD Malignant neoplasm of overlapping sites of right lung (HCC) (Primary Dx) 12/08/2024 12:30 PM SHUTTLE FITTING SUPERVISOR Office Visit [facility] Oncology [address] [place] [phone] Kevin Lerner MD Malignant neoplasm of overlapping sites of right lung (HCC) (Primary Dx); Squamous cell carcinoma of head and neck 12/08/2024 11:15 AM SHUTTLE FITTING SUPERVISOR Clinical Support [facility] at [address] [address] Malignant neoplasm of overlapping sites of right lung (HCC); Squamous cell carcinoma of head and neck 12/08/2024 10:08 AM SHUTTLE FITTING SUPERVISOR - 12/08/2024 11:59 PM SHUTTLE FITTING SUPERVISOR Hospital Encounter [facility] MRI [address] [place] [phone] Malignant neoplasm of overlapping sites of right lung (HCC) Discharge Disposition: Discharge to home or self care 12/01/2024 2:00 PM SHUTTLE FITTING SUPERVISOR Office Visit [facility] Oncology [address] [place] [address] [address] [place] [phone] Kevin Lerner MD Malignant neoplasm of overlapping sites of right lung (HCC) (Primary Dx); Squamous cell carcinoma of head and neck; 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); Metastasis to brain (HCC) 11/30/2024 Orders Only [facility] Oncology [address] [place] [phone] Virgen Coffey RN Malignant neoplasm of overlapping sites of right lung (HCC) (Primary Dx) 11/29/2024 10:32 AM SHUTTLE FITTING SUPERVISOR - 11/29/2024 11:59 PM SHUTTLE FITTING SUPERVISOR Hospital Encounter [facility] - Imaging [address] [place] [phone] [facility] Malignant neoplasm of overlapping sites of right lung (HCC) Discharge Disposition: Discharge to home or self care 11/24/2024 11:45 AM SHUTTLE FITTING SUPERVISOR Office Visit [facility] Oncology [address] [place] [phone] Kevin Lerner MD Malignant neoplasm of overlapping sites of right lung (HCC) (Primary Dx); Other fatigue; Metastasis to brain (HCC); Anemia, unspecified type; Radiation pneumonitis 11/24/2024 11:15 AM SHUTTLE FITTING SUPERVISOR Clinical Support [facility] at [address] [phone] Malignant neoplasm of overlapping sites of right lung (HCC) 11/17/2024 12:56 PM SHUTTLE FITTING SUPERVISOR - 11/17/2024 11:59 PM SHUTTLE FITTING SUPERVISOR Hospital [facility] [place] [address] [place] [address] Malignant neoplasm of overlapping sites of right lung (HCC) Discharge Disposition: Discharge to home or self care from Last 3 Months Surgical History Surgery Date Site/Laterality Comments PARTIAL KNEE ARTHROPLASTY 10/20/2013 - 10/19/2014 Left ARTHROPLASTY KNEE UNICOMPARTMENTAL with Biomet Mozier Left COLONOSCOPY 10/20/2012 - 10/19/2013 BASAL CELL CARCINOMA EXCISION 04/23/2023 11/26/2023 SKIN CANCER EXCISION 12/26/2022 Wide local resection right forehead, 1 x 1 cm 2. Wide local resection right voodoo, 3.5 x 3.5 cm 3. Local facial advancement snail flap JOINT REPLACEMENT TOTAL KNEE ARTHROPLASTY 10/20/2019 - 10/19/2020 Right PORT PLACEMENT CHEST >5 YEARS 07/15/2024 N/A US GUIDED BIOPSY LYMPH NODE SUPERFICIAL LEFT 12/13/2024 N/A Medical History Medical History Date Comments Allergies Arthritis Dizziness GERD (gastroesophageal reflux disease) High blood pressure Asthma 1950 Cancer (HCC) 09/2022 Skin cancer FACE SEE DR VERGARA TO NOTES IN EPIC. Pulmonary nodule Cough dry to productiv e white Wheezing History of radiation therapy 30 treatement on right side of face 02/2023 and 5 tx right lung 08/2023 Hypercholesteremia Pneumonia 09/2024 Family History Medical History Relation Name Comments Allergies Maternal Grandfather [place] Asthma Maternal Grandfather [place] Cancer Mother Ayse Heart disease Mother Ayse Anesthesia problems Neg Hx Relation Name Status Comments Maternal Grandfather [place] Mother Ayse Social History Tobacco Use Types Packs/Day Years [...] on file Legal Sex Male 9:00 AM SHUTTLE FITTING SUPERVISOR Gender Identity Not on file Sexual Orientation Not on file Obstetrics History Last Filed Vital Signs Vital Sign Reading [...] 01/05/2025 12:29 PM CDT Plan of Treatment Health Maintenance Due Date Last Done Comments Depression Screening 1945 DTaP/Tdap/Td Vaccine (1 - Tdap) 1954 Hepatitis B Screening 1961 Pneumococcal vaccine 65+ (1 of 2 - PCV) 1962 Zoster Vaccine (1 of 2) 1962 Well Visit 65+ 2008 Influenza Vaccine (Season Ended) 2025 Fall Risk Assessment 07/15/2025 07/15/2024 Medical Devices Implanted Type Area Local Tanker Truck Driver Device Identifier Shelf Expiration Date Model / Serial / Lot Other - See Comments Other - see comments Bilatera l: Knee Description:Armin Knee replace ment [employer] Xcela Power Port 8fr [id number] - [id number] Implanted:Qty: 1 on 07/15/2024 by Stu Arana MD at [facility] [employer] 02/21/2029 [id number] / [id number] Procedures Procedure Name Priority Date/Time Associated Diagnosis [...] ONC ARIA SESSION SUMMARY 12/24/2024 1:19 PM SHUTTLE FITTING SUPERVISOR TEMPUS XT DNA AND RNA SOLID TUMOR Routine 12/23/2024 5:27 PM SHUTTLE FITTING SUPERVISOR Malignant neoplasm of overlapping sites of right lung (HCC) Squamous cell carcinoma of head and neck Metastasis to brain (HCC) RAD ONC ARIA SESSION SUMMARY 12/23/2024 1:11 PM SHUTTLE FITTING SUPERVISOR RAD ONC ARIA SESSION SUMMARY 12/22/2024 1:07 PM SHUTTLE FITTING SUPERVISOR RAD ONC ARIA SESSION SUMMARY 12/21/2024 1:10 PM SHUTTLE FITTING SUPERVISOR RAD ONC ARIA SESSION SUMMARY 12/20/2024 1:18 PM SHUTTLE FITTING SUPERVISOR RAD ONC ARIA SESSION SUMMARY 12/17/2024 1:10 PM SHUTTLE FITTING SUPERVISOR RAD ONC ARIA SESSION SUMMARY 12/16/2024 1:11 PM SHUTTLE FITTING SUPERVISOR RAD ONC ARIA SESSION SUMMARY 12/15/2024 12:59 PM SHUTTLE FITTING SUPERVISOR RAD ONC ARIA COURSE SUMMARY 12/14/2024 10:30 AM SHUTTLE FITTING SUPERVISOR US PERCUTANEOUS NEEDLE BIOPSY MUSCLE Schedule Routine, Read Routine (OP Routine) 12/13/2024 2:30 PM SHUTTLE FITTING SUPERVISOR Mass on back US GUIDED BIOPSY LYMPH NODE SUPERFICIAL LEFT Schedule Routine, Read Routine (OP Routine) 12/13/2024 2:30 PM SHUTTLE FITTING SUPERVISOR Axillary mass, left FLOW LEUKEMIA/LYMPHOMA Routine 12/13/2024 2:10 PM SHUTTLE FITTING SUPERVISOR FLOW LEUKEMIA/LYMPHOMA Routine 12/13/2024 1:58 PM SHUTTLE FITTING SUPERVISOR SURGICAL PATHOLOGY Routine 12/13/2024 1: 57 PM SHUTTLE FITTING SUPERVISOR Axillary mass, left EGFR STAT 12/08/2024 12:09 PM SHUTTLE FITTING SUPERVISOR Malignant neoplasm of overlapping sites of right lung (HCC) Squamous cell carcinoma of head and neck MANUAL DIFFERENTIAL STAT 12/08/2024 1 2:09 PM SHUTTLE FITTING SUPERVISOR Malignant neoplasm of overlapping sites of right lung (HCC) Squamous cell carcinoma of head and neck DIFFERENTIAL AUTO STAT 12/08/2024 12: 09 PM SHUTTLE FITTING SUPERVISOR Malignant neoplasm of overlapping sites of right lung (HCC) Squamous cell carcinoma of head and neck THYROID FUNCTION CASCADE Routine 12/08/2024 12:09 PM SHUTTLE FITTING SUPERVISOR Malignant neoplasm of overlapping sites of right lung (HCC) Squamous cell carcinoma of head and neck COMPREHENSIVE METABOLIC PANEL STAT 12/08/2024 12:09 PM SHUTTLE FITTING SUPERVISOR Malignant neoplasm of overlapping sites of right lung (HCC) Squamous cell carcinoma of head and neck CBC WITH AUTO DIFFERENTIAL STAT 12/08/2024 12:09 PM SHUTTLE FITTING SUPERVISOR Malignant neoplasm of overlapping sites of right lung (HCC) Squamous cell carcinoma of head and neck MRI BRAIN W WO CONTRAST Schedule Routine, Read Routine (OP Routine) 12/08/2024 11:36 AM SHUTTLE FITTING SUPERVISOR Malignant neoplasm of overlapping sites of right lung (HCC) PET/CT FDG SKULL TO THIGH Schedule Routine, Read Routine (OP Routine) 11/29/2024 12:31 PM SHUTTLE FITTING SUPERVISOR Malignant neoplasm of overlapping sites of right lung (HCC) POCT GLUCOSE DEVICE Routine 11/29/2024 1 1:03 AM SHUTTLE FITTING SUPERVISOR EGFR STAT 11/24/2024 11:10 AM SHUTTLE FITTING SUPERVISOR Malignant neoplasm of overlapping sites of right lung (HCC) DIFFERENTIAL AUTO Routine 11/24/2024 11: 10 AM SHUTTLE FITTING SUPERVISOR Malignant neoplasm of overlapping sites of right lung (HCC) CBC WITH AUTO DIFFERENTIAL Routine 11/24/2024 11:10 AM SHUTTLE FITTING SUPERVISOR Malignant neoplasm of overlapping sites of right lung (HCC) COMPREHENSIVE METABOLIC PANEL STAT 11/24/2024 11:10 AM SHUTTLE FITTING SUPERVISOR Malignant neoplasm of overlapping sites of right lung (HCC) TSH Routine 11/24/2024 11:10 AM SHUTTLE FITTING SUPERVISOR Malignant neoplasm of overlapping sites of right lung (HCC) CT CHEST WO CONTRAST Schedule Routine, Read Routine (OP Routine) 11/17/2024 1:06 PM SHUTTLE FITTING SUPERVISOR Malignant neoplasm of overlapping sites of right [...] was last reviewed 2021. Testing performed by: [address] [address] Blood 01/26/2025 11:3 4 AM CDT 01/26/2025 11:36 AM CDT us Kevin Lerner MD LAB BLOOD ORDERABLES Fin al Result [facility] [facility] Department [place] [address] * (ABNORMAL) Differential, auto (01/26/2025 11:34 AM CDT) Neutrophil abs 35.17(H) 1.50 - 6.50 K/cumm Comment:Testing performed by : [address] [address] Imm gran abs 1.88(H) 0.00 - 0.10 K/cumm [facility] Comment:Testing performed by : [address] [address] Lymphocyte abs 0.68(L) 0.80 - 3.30 K/cumm [facility] Comment:Testing performed by : [address] [address] Monocyte abs 1.27(H) 0.20 - 0.80 K/cumm [facility] Comment:Testing performed by : [address] [address] Eosinophil abs 0.01 0.00 - 0.50 K/cumm [facility] Comment:Testing performed by : [address] [address] Basophil abs 0.04 0.00 - 0.10 K/cumm [facility] Comment:Testing performed by : [address] [address] Neutrophil pct 90.1 % [facility] Comment: Interpretive Data Percent cell count reference ranges are not reported, since discordance with absolute values may lead to misinterpretation of CBC data. Current Interpretive Data was last revised on 2018. Testing performed by: [address] [address] Imm gran pct 4.8 % [facility] Comment: Interpretive Data Percent cell count reference ranges are not reported, since discordance with absolute values may lead to misinterpretation of CBC data. Current Interpretive Data was last revised on 2018. Testing performed by: [address] [address] Lymphocyte pct 1.7 % [facility] Comment: Interpretive Data Percent cell count reference ranges are not reported, since discordance with absolute values may lead to misinterpretation of CBC data. Current Interpretive Data was last revised on 2018. Testing performed by: [address] [address] Monocyte pct 3.3 % [facility] Comment: Interpretive Data Percent cell count reference ranges are not reported, since discordance with absolute values may lead to misinterpretation of CBC data. Current Interpretive Data was last revised on 2018. Testing performed by: [address] [address] Eosinophil pct 0.0 % [facility] Comment: Interpretive Data Percent cell count reference ranges are not reported, since discordance with absolute values may lead to misinterpretation of CBC data. Current Interpretive Data was last revised on 2018. Testing performed by: [address] [address] Basophil pct 0.1 % [facility] Comment: Interpretive Data Percent cell count reference ranges are not reported, since discordance with absolute values may lead to misinterpretation of CBC data. Current Interpretive Data was last revised on 2018. Testing performed by: [address] [address] Blood 01/26/2025 11:3 4 AM CDT 01/26/2025 11:36 AM CDT us Kevin Lerner MD LAB BLOOD ORDERABLES Fin al Result [place] [id number] [facility] Department [place] [address] * (ABNORMAL) CBC with auto differential (01/26/2025 11:34 AM CDT) WBC 39.05(H) 3.80 - 9.90 K/cumm Comment:Testing performed by : [address] [address] Hgb 12.2(L) 13.0 - 17.5 g/dL [facility] Comment:Testing performed by : [address] [address] Hct 35.5(L) 38.9 - 50.3 % [facility] Comment:Testing performed by : [address] [address] Plt 129(L) 150 - 400 K/cumm [facility] Comment:Testing performed by : [address] [address] MPV 9.6 9.1 - 12.3 fL [facility] Comment:Testing performed by : [address] [address] RBC 3.82(L) 4.30 - 5.80 M/cumm [facility] Comment:Testing performed by : [address] [address] MCV 92.9 81.3 - 96.4 fL [facility] Comment:Testing performed by : [address] [address] MCH 31.9 27.1 - 33.3 pg [facility] Comment:Testing performed by : [address] [address] MCHC 34.4 32.3 - 35.7 g/dL [facility] Comment:Testing performed by : [address] [address] RDW CV 16.3(H) 11.1 - 14.9 % [facility] Comment:Testing performed by : [address] [address] RDW SD 54.4(H) 35.7 - 48.1 fL [facility] Comment:Testing performed by : [address] [address] NRBC abs 0.00 0.00 - 0.01 K/cumm [facility] Comment:Testing performed by : [address] [address] ANC Prelim 35.17(H) 1.50 - 6.50 K/cumm [facility] Comment: Interpretive Data The rapid ANC is a preliminary automated count and may vary from the final ANC (Neut Abs) reported in the WBC differential that follows. Current interpretive data was last revised 2025. Testing performed by: [address] [address] Morphologic Screen Results confirmed by manual morphology review. [facility] Comment:Testing performed by : [address] [address] Blood 01/26/2025 11:3 4 AM CDT 01/26/2025 11:36 AM CDT us Kevin Lerner MD LAB BLOOD ORDERABLES Fin al Result ELVIN HATCH [address] [facility] Department of Laboratories [place], [place] [id number] * Creatine kinase (CK), total (01/26/2025 11:34 AM CDT) CK 121 40 - 300 Units/L Comment:Testing performed by : [address] [address] Blood 01/26/2025 11:3 4 AM CDT 01/26/2025 1:42 PM CDT us Kevin Lerner MD LAB BLOOD ORDERABLES Fin al Result [facility] [address] [facility] Department [place] [address] * (ABNORMAL) Comprehensive metabolic panel (01/26/2025 11:34 AM CDT) Sodium 136 135 - 145 mmol/L Comment:Testing performed by : [address] [address] Potassium, pl 3.9 3.3 - 4.9 mmol/L ELVIN Comment:Testing performed by : [address] [address] Chloride 99 97 - 110 mmol/L ELVIN Comment:Testing performed by : [address] [address] CO2 24 22 - 32 mmol/L ELVIN Comment:Testing performed by : [address] [address] Anion gap 13 2 - 15 mmol/L ELVIN Comment:Testing performed by : [address] [address] BUN 18 6 - 25 mg/dL ELVIN Comment:Testing performed by : [address] [address] Creatinine 0.90 0.80 - 1.30 mg/dL ELVIN Comment:Testing performed by : [address] [address] Glucose 171 70 - 199 mg/dL ELVIN [...] was last revised 2022. Testing performed by: [address] [address] Calcium 10.6(H) 8.5 - 10.3 mg/dL ELVIN Comment:Testing performed by : [address] [address] Bilirubin, total 0.4 0.1 - 1.2 mg/dL ELVIN Comment:Testing performed by : [address] [address] Protein, pl 6.1(L) 6.5 - 8.5 g/dL ELVIN Comment:Testing performed by : [address] [address] Albumin 3.8 3.5 - 5.0 g/dL ELVIN Comment:Testing performed by : [address] [address] Alk phos 164(H) 40 - 130 Units/L ELVIN Comment:Testing performed by : [address] [address] ALT 14 7 - 55 Units/L ELVIN Comment:Testing performed by : [address] [address] AST 16 10 - 50 Units/L ELVIN Comment:Testing performed by : [address] [address] Blood 01/26/2025 11:3 4 AM CDT 01/26/2025 11:36 AM CDT us Kevin Lerner MD LAB BLOOD ORDERABLES Fin al Result EL[facility] HATCH [address] [facility] Department [place] [address] * eGFR (01/05/2025 11:17 AM CDT) eGFR [...] was last reviewed 2021. Testing performed by: [address] [address] Blood 01/05/2025 11:1 7 AM CDT 01/05/2025 11:17 AM CDT us Kevin Lerner MD LAB BLOOD ORDERABLES Fin al Result [facility] [address] [facility] Department of Laboratories [place], [place] [id number] * (ABNORMAL) Differential, auto (01/05/2025 11:17 AM CDT) Pathologist [facility] Neutrophil abs 30.6(H) 1.5 - 6.5 K/cumm Comment:Testing performed by : [address] [address] Imm gran abs 0.6(H) 0.0 - 0.1 K/cumm ELVIN HATCH Comment:Testing performed by : [address] [address] Lymphocyte abs 0.6(L) 0.8 - 3.3 K/cumm ELVIN HATCH Comment:Testing performed by : [address] [address] Monocyte abs 1.0(H) 0.2 - 0.8 K/cumm [facility] Comment:Testing performed by : [address] [address] Eosinophil abs 0.0 0.0 - 0.5 K/cumm [facility] Comment:Testing performed by : [address] [address] Basophil abs 0.1 0.0 - 0.1 K/cumm [facility] Comment:Testing performed by : [address] [address] Neutrophil pct 92.7 % CERFORMERLY NAMED [facility] Comment: Interpretive Data Percent cell count reference ranges are not reported, since discordance with absolute values may lead to misinterpretation of CBC data. Current Interpretive Data was last revised on 2018. Testing performed by: [address] [address] Imm gran pct 1.8 % [facility] Comment: Interpretive Data Percent cell count reference ranges are not reported, since discordance with absolute values may lead to misinterpretation of CBC data. Current Interpretive Data was last revised on 2018. Testing performed by: [address] [address] Lymphocyte pct 1.9 % [facility] Comment: Interpretive Data Percent cell count reference ranges are not reported, since discordance with absolute values may lead to misinterpretation of CBC data. Current Interpretive Data was last revised on 2018. Testing performed by: [address] [address] Monocyte pct 3.2 % [facility] Comment: Interpretive Data Percent cell count reference ranges are not reported, since discordance with absolute values may lead to misinterpretation of CBC data. Current Interpretive Data was last revised on 2018. Testing performed by: [address] [address] Eosinophil pct 0.0 % [facility] Comment: Interpretive Data Percent cell count reference ranges are not reported, since discordance with absolute values may lead to misinterpretation of CBC data. Current Interpretive Data was last revised on 2018. Testing performed by: [address] [place]., [address] Basophil pct 0.4 % ELVIN Comment: Interpretive Data Percent cell count reference ranges are not reported, since discordance with absolute values may lead to misinterpretation of CBC data. Current Interpretive Data was last revised on 2018. Testing performed by: [address] [address] Blood 01/05/2025 11:1 7 AM CDT 01/05/2025 11:17 AM CDT us Kevin Lerner MD LAB BLOOD ORDERABLES Fin al Result [facility] [address] [facility] Department [place] [address] * (ABNORMAL) CBC with auto differential (01/05/2025 11:17 AM CDT) WBC 33.0(H) 3.8 - 9.9 K/cumm Comment:Testing performed by : [address] [address] Hgb 14.4 13.0 - 17.5 g/dL ELVIN HATCH Comment:Testing performed by : [address] [address] Hct 42.1 38.9 - 50.3 % ELVIN Comment:Testing performed by : [address] [address] Plt 141(L) 150 - 400 K/cumm ELVIN Comment:Testing performed by : [address] [address] MPV 9.3 9.1 - 12.3 fL [facility] HATCH Comment:Testing performed by : [address] [address] RBC 4.49 4.30 - 5.80 M/cumm [facility] HATCH Comment:Testing performed by : [address] [address] MCV 93.8 81.3 - 96.4 fL [place] HATCH Comment:Testing performed by : [address] [place] [address] MCH 32.1 27.1 - 33.3 pg [facility] HATCH Comment:Testing performed by : [address] [address] MCHC 34.2 32.3 - 35.7 g/dL [facility] HATCH Comment:Testing performed by : [address] [address] RDW CV 15.1(H) 11.1 - 14.9 % [facility] HATCH Comment:Testing performed by : [address] [address] RDW SD 52.2(H) 35.7 - 48.1 fL [facility] HATCH Comment:Testing performed by : [address] [address] NRBC abs 0.00 0.00 - 0.01 K/cumm [facility] HATCH Comment:Testing performed by : [address] [address] Blood 01/05/2025 11:1 7 AM CDT 01/05/2025 11:17 AM CDT Kevin Lerner MD LAB BLOOD ORDERABLES Fin al Result [facility] [address] [facility] Department [place] [address] * (ABNORMAL) Comprehensive metabolic panel (01/05/2025 11:17 AM CDT) Sodium 136 135 - 145 mmol/L Comment:Testing performed by : [address] [address] Potassium, pl 4.2 3.3 - 4.9 mmol/L [facility] HATCH Comment:Testing performed by : [address] [address] Chloride 98 97 - 110 mmol/L [facility] HATCH Comment:Testing performed by : [address] [address] CO2 25 22 - 32 mmol/L EL[facility] HATCH Comment:Testing performed by : [address] [address] Anion gap 13 2 - 15 mmol/L ELVIN Comment:Testing performed by : [address] [address] BUN 30(H) 6 - 25 mg/dL ELVIN Comment:Testing performed by : [address] [address] Creatinine 1.20 0.80 - 1.30 mg/dL ELVIN Comment:Testing performed by : [address] [address] Glucose 173 70 - 199 mg/dL TESSFORMERLY NAMED [facility] Comment: Interpretive Data Fasting glucose >/= 126 [...] was last revised 2022. Testing performed by: [address] [address] Calcium 11.0(H) 8.5 - 10.3 mg/dL ELVIN Comment:Testing performed by : [address] [address] Bilirubin, total 0.6 0.1 - 1.2 mg/dL ELVIN Comment:Testing performed by : [address] [address] Protein, pl 7.1 6.5 - 8.5 g/dL ELVIN Comment:Testing performed by : [address] [address] Albumin 4.1 3.5 - 5.0 g/dL ELVIN Comment:Testing performed by : [address] [address] Alk phos 150(H) 40 - 130 Units/L ELVIN Comment:Testing performed by : [address] [address] ALT 11 7 - 55 Units/L [facility] HATCH Comment:Testing performed by : [facility], [address] [place] [address]., [address] AST 11 10 - 50 Units/L ELVIN HATCH Comment:Testing performed by : [facility], [address] [place] [address]., [address] Blood 01/05/2025 11:1 7 AM CDT 01/05/2025 11:17 AM CDT us Kevin Lerner MD LAB BLOOD ORDERABLES Fin al Result [facility] [address] [facility] Department [place] [address] * RAD ONC ARIA SESSION [...] ONC ARIA SESSION SUMMARY (12/24/2024 1:19 PM SHUTTLE FITTING SUPERVISOR) Course Name C5_Brain_2 025 ARIA Course Plan [...] Dose (cGy) 3,000 ARIA 12/24/2024 1:19 PM SHUTTLE FITTING SUPERVISOR us Not In File Miscellaneous RADIATION ONCOLOGY ORD ERABLES Final Result Performing Organization Address City/[facility]/ZIP Co de Phone Number SARA * [facility] xT DNA and RNA - Tumor Only (12/23/2024 5:27 PM SHUTTLE FITTING SUPERVISOR) Reason for Study To identify somatic and [...] PM CDT [facility] Portal [email or web address] /[id number] [email or web address] 01/17/2025 3:55 PM CDT [facility] Comment:[facility] [...] Trial Match 1 Clinical Trial NCT ID: [id number] Clinical Trial Title: KO-2806 Monotherapy and Combination Therapies in Advanced Solid Tumors Clinical Trial URL: [email or web address]://clinicalt [facility].gov/ct2/jenny w/[email or web address] Clinical Phase: Phase 1 Clinical Trial Matches: HRAS p.G13V mutation Clinical Trial Distance and Location: [address] [place], [place] 01/17/2025 3:55 PM CDT [facility]: Clinical Trial Match 2 Clinical Trial NCT ID: [id number] Clinical Trial Title: TAPUR: Testing the Use of Food and Drug Administration (FDA) Approved Drugs That Target a Specific Abnormality in a Tumor Gene in People With Advanced Stage Cancer Clinical Trial URL: [email or web address] [facility].gov/ct2/jenny w/[email or web address] Clinical Phase: Phase 2 Clinical Trial Matches: CDKN2A deletion, CDKN2B deletion, TMB-High Clinical Trial Distance and Location: [address] [facility] [place] 01/17/2025 3:55 PM CDT [facility]: Clinical Trial Match 3 Clinical Trial NCT ID: [id number] Clinical Trial Title: Study Of ATRN-119 In Patients With Advanced Solid Tumors Clinical Trial URL: [email or web address]://clinicalt [facility].gov/ct2/jenny w/[email or web address] Clinical Phase: Phase 1/Phase 2 Clinical Trial Matches: TP53 p.R213* mutation, CDKN2A deletion, MTAP deletion Clinical Trial Distance and Location: [address] [place] [address] 01/17/2025 3:55 PM CDT [facility] xR [...] LABS Tissue specimen (specimen) 12/23/2024 5:27 PM SHUTTLE FITTING SUPERVISOR 12/30/2024 10:07 AM CDT Narrative This result has genomic variants that were not included in this document. us Kevin Lerner MD LAB GENETIC TESTING Vania l Result Performing Organization Address City/[facility]/ZIP Co de Phone Number [facility] [address] [facility], [address] [phone] [facility] [address] [facility], [address] [place] [address] * RAD ONC ARIA SESSION SUMMARY (12/23/2024 1:11 PM SHUTTLE FITTING SUPERVISOR) Course Name C5_Brain_2 025 ARIA Course Plan [...] Dose (cGy) 3,000 ARIA 12/23/2024 1:11 PM SHUTTLE FITTING SUPERVISOR us Not In File Miscellaneous RADIATION ONCOLOGY ORD ERABLES Final Result Performing Organization Address [facility] Co de Phone Number ARIA * RAD ONC ARIA SESSION SUMMARY (12/22/2024 1:07 PM SHUTTLE FITTING SUPERVISOR) Course Name C5_Brain_2 025 ARIA Course Plan [...] Dose (cGy) 3,000 ARIA 12/22/2024 1:07 PM SHUTTLE FITTING SUPERVISOR us Not In File Miscellaneous RADIATION ONCOLOGY ORD ERABLES Final Result Performing Organization Address City/[facility]/ZIP Co de Phone Number ARIA * RAD ONC ARIA SESSION SUMMARY (12/21/2024 1:10 PM SHUTTLE FITTING SUPERVISOR) Course Name C5_Brain_2 025 ARIA Course Plan [...] Dose (cGy) 3,000 ARIA 12/21/2024 1:10 PM SHUTTLE FITTING SUPERVISOR us Not In File Miscellaneous RADIATION ONCOLOGY ORD ERABLES Final Result Performing Organization Address [facility] Co de Phone Number ARIA * RAD ONC ARIA SESSION SUMMARY (12/20/2024 1:18 PM SHUTTLE FITTING SUPERVISOR) Course Name C5_Brain_2 025 ARIA Course Plan [...] Dose (cGy) 3,000 ARIA 12/20/2024 1:18 PM SHUTTLE FITTING SUPERVISOR us Not In File Miscellaneous RADIATION ONCOLOGY ORD ERABLES Final Result ARIA * RAD ONC ARIA SESSION SUMMARY (12/17/2024 1:10 PM SHUTTLE FITTING SUPERVISOR) Course Name C5_Brain_2 025 ARIA Course Plan [...] Dose (cGy) 3,000 ARIA 12/17/2024 1:10 PM SHUTTLE FITTING SUPERVISOR us Not In File Miscellaneous RADIATION ONCOLOGY ORD ERABLES Final Result SARA * RAD ONC ARIA SESSION SUMMARY (12/16/2024 1:11 PM SHUTTLE FITTING SUPERVISOR) Course Name C5_Brain_2 025 ARIA Course Plan [...] Dose (cGy) 3,000 ARIA 12/16/2024 1:11 PM SHUTTLE FITTING SUPERVISOR us Not In File Miscellaneous RADIATION ONCOLOGY ORD ERABLES Final Result SARA * RAD ONC ARIA SESSION SUMMARY (12/15/2024 12:59 PM SHUTTLE FITTING SUPERVISOR) Course Name C5_Brain_2 025 ARIA Course Plan [...] (cGy) 3,000 ARIA 12/15/2024 12:5 9 PM SHUTTLE FITTING SUPERVISOR us Not In File Miscellaneous RADIATION ONCOLOGY ORD ERABLES Final Result SARA * RAD ONC ARIA COURSE SUMMARY (12/14/2024 10:30 AM SHUTTLE FITTING SUPERVISOR) Course Name C4_RTBrain _2023 ARIA Course Plan [...] (cGy) 2,000 ARIA 12/14/2024 10:3 0 AM SHUTTLE FITTING SUPERVISOR us Not In File Miscellaneous RADIATION ONCOLOGY ORD ERABLES Final Result SARA * US Guided Biopsy Lymph Node Superficial Left (12/13/2024 2:30 PM SHUTTLE FITTING SUPERVISOR) Anatomical Region Laterality Modality Entire body N/A Ultrasound 12/18/2024 7:43 AM SHUTTLE FITTING SUPERVISOR Narrative 12/18/2024 7:44 AM SHUTTLE FITTING SUPERVISOR EXAM DESCRIPTION: US GUIDED NEEDLE BIOPSY SOFT [...] by Jero Orellana M.D. CH: Report ID: [id number] Reading Location: [id number] Procedure Note Jero Orellana Jr., MD - [...] Electronically signed by Jero Orellana M.D. CH: CH Report ID: [id number] Reading Location: [id number] us Vaqzuez Penny MD IMG US PROCEDURES Final Resu lt * US Guided Needle Biopsy Soft Tissue Mass (12/13/2024 2:30 PM SHUTTLE FITTING SUPERVISOR) Anatomical Region Laterality Modality Body N/A Ultrasound 12/18/2024 7:43 AM SHUTTLE FITTING SUPERVISOR Narrative 12/18/2024 7:44 AM SHUTTLE FITTING SUPERVISOR EXAM DESCRIPTION: US GUIDED NEEDLE BIOPSY SOFT [...] by Jero Orellana M.D. CH: Report ID: [id number] Reading Location: [id number] Procedure Note Jero Orellana Jr., MD - [...] Electronically signed by Jero Orellana M.D. CH: CH Report ID: [id number] Reading Location: [id number] us Vazquez Penny MD IM US PROCEDURES Final Resu lt * Flow Leukemia/Lymphoma Lymph node (12/13/2024 2:10 PM SHUTTLE FITTING SUPERVISOR) Reyes Stain Test Completed Comment:Testing performed by : [facility], [address] [facility]., [address] Leukemia/Lymp perry Result See separate Surgical Pathology report. ELVIN Comment:Testing performed by : [facility], [address] [place]., [address] Lymph node 12/13/2024 2:10 PM SHUTTLE FITTING SUPERVISOR 12/14/2024 3:00 PM SHUTTLE FITTING SUPERVISOR Vazquez Penny MD LAB PATHOLOGY ORDERABLES Fin al Result Performing Organization Address [facility] Co de Phone Number [address] [address] * Flow Leukemia/Lymphoma Lymph node (12/13/2024 1:58 PM SHUTTLE FITTING SUPERVISOR) Reyes Stain Test Completed Comment:Testing performed by : [facility], [address] [place]., [address] Leukemia/Lymp perry Result See separate Surgical Pathology report. ELVIN Comment:Testing performed by : [facility], [address] [place]., [address] Lymph node 12/13/2024 1:58 PM SHUTTLE FITTING SUPERVISOR 12/14/2024 3:00 PM SHUTTLE FITTING SUPERVISOR Vazquez Penny MD LAB PATHOLOGY ORDERABLES Fin al Result Performing Organization Address [facility] Co de Phone Number [address] [address] * Surgical pathology (12/13/2024 1:57 PM SHUTTLE FITTING SUPERVISOR) Tissue specimen (specimen) (Lymph node, needle biopsy) 12/13/2024 1:57 PM SHUTTLE FITTING SUPERVISOR Tissue specimen (specimen) (Lymph node, needle biopsy) 12/13/2024 1:58 PM SHUTTLE FITTING SUPERVISOR Tissue specimen (specimen) (Mass/Tumor/Lesio n) 12/13/2024 2:10 PM SHUTTLE FITTING SUPERVISOR Tissue specimen (specimen) (Mass/Tumor/Lesio n) 12/13/2024 2:11 PM SHUTTLE FITTING SUPERVISOR Narrative PATHOLOGY [facility] - 12/16/2024 4:16 PM SHUTTLE FITTING SUPERVISOR EPIC results best viewed via link to PDF [facility] [place] [address] Note to Patients: This report may contain [...] WITH ADDENDUM Patient Name: VIKKI MARRERO Gender: M : 1945 (Age: 79) Address: [address] [place], [place] [phone] Hospital #: [id number] Taken:12/13/2024 Received:12/13/2024 Reported: 12/16/2024 Patient Type: E ANCILLAR Service: DEFAULT Location: Physician(s): Charles Douglass D.O. Thomas X Thomas, DO Diagnosis: A. Left axillary mass, biopsy - Poorly differentiated carcinoma (see comment) B. Left axillary mass for flow cytometry - Too few cells for flow cytometric analysis C. Mid back mass, biopsy - Poorly differentiated carcinoma D. Mid back mass for flow cytometry - Too few cells for flow cytometric analysis [facility]/12/15/2024 15:36 By this signature, I attest that [...] cytometry specimen was examined for internal senior quality manager purposes. (juac 12/15/24) Part D: Mid back mass Specimen quality: Paucicellular Flow cytometry was not performed due to insufficient viable cell counts. A Reyes-Giemsa stained cytospin from the flow cytometry specimen was examined for internal senior quality manager purposes. (juac 12/15/24) Flow cytometry and cytospins (parts B and D) reviewed by Dr. Rajan.[facility] History: The patient is an 79-year-old man [...] Specimen D was submitted for flow cytometry. /12/14/2024 13:45 PA(s): LIOR Keen ([facility])CM FLOW CYTOMETRY: LEUKEMIA PANEL Specimen information: Part [...] ordered molecular analysis. Materials were forwarded to [facility] where the [facility] xT test will be [...] Electronically Reviewed and Signed Out By Stu aHys M.D. 01/18/2025 13:11:01 The xT 595 test was performed at [address], [address], [place] [address]. The performance characteristics of some immunohistochemical stains, fluorescence in-situ hybridization tests and immunophenotyping by flow cytometry cited in this report (if any) were determined by the Surgical Pathology and Flow Cytometry Departments at [facility] as part of an ongoing quality assurance supervisor final program and in compliance with federally mandated [...] Surgical Pathology and Flow Cytometry Departments of [facility]. It has not been cleared or approved by the U. S. Food and Drug Administration. IMAGES AND SCANNED DOCUMENTS, IF INCLUDED, ONLY VIEWABLE IN PDF VERSION OF REPORT Vazquez Penny MD LAB PATHOLOGY ORDERABLES [facility] al Result PATHOLOGY [facility] * eGFR (12/08/2024 12:09 PM SHUTTLE FITTING SUPERVISOR) eGFR 61 >=60 mL/min/1. 73 m2 Comment: [...] was last reviewed 2021. Testing performed by: [address] [address] Blood 12/08/2024 12:0 9 PM SHUTTLE FITTING SUPERVISOR 12/08/2024 12:11 PM SHUTTLE FITTING SUPERVISOR us Kevin Lerner MD LAB BLOOD ORDERABLES Fin al Result [facility] Department of Laboratories [place], [place] [id number] * (ABNORMAL) Differential, auto (12/08/2024 12:09 PM SHUTTLE FITTING SUPERVISOR) Neutrophil abs 24.3(H) 1.5 - 6.5 K/cumm Comment:Testing performed by : [address] [address] Imm gran abs 0.6(H) 0.0 - 0.1 K/cumm ELVIN Comment:Testing performed by : [address] [address] Lymphocyte abs 0.7(L) 0.8 - 3.3 K/cumm ELVIN Comment:Testing performed by : [address] [address] Monocyte abs 0.9(H) 0.2 - 0.8 K/cumm ELVIN Comment:Testing performed by : [address] [address] Eosinophil abs 0.0 0.0 - 0.5 K/cumm ELVIN Comment:Testing performed by : [address] [address] Basophil abs 0.1 0.0 - 0.1 K/cumm ELVIN Comment:Testing performed by : [address] [address] Neutrophil pct 91.4 % ELVIN Comment: Interpretive Data Percent cell count reference ranges are not reported, since discordance with absolute values may lead to misinterpretation of CBC data. Current Interpretive Data was last revised on 2018. Testing performed by: [address] [address] Imm gran pct 2.3 % TESSFORMERLY NAMED [facility] Comment: Interpretive Data Percent cell count reference ranges are not reported, since discordance with absolute values may lead to misinterpretation of CBC data. Current Interpretive Data was last revised on 2018. Testing performed by: [address] [address] Lymphocyte pct 2.6 % [facility] Comment: Interpretive Data Percent cell count reference ranges are not reported, since discordance with absolute values may lead to misinterpretation of CBC data. Current Interpretive Data was last revised on 2018. Testing performed by: [address] [address] Monocyte pct 3.2 % [facility] Comment: Interpretive Data Percent cell count reference ranges are not reported, since discordance with absolute values may lead to misinterpretation of CBC data. Current Interpretive Data was last revised on 2018. Testing performed by: [address] [address] Eosinophil pct 0.1 % [facility] Comment: Interpretive Data Percent cell count reference ranges are not reported, since discordance with absolute values may lead to misinterpretation of CBC data. Current Interpretive Data was last revised on 2018. Testing performed by: [address] [address] Basophil pct 0.4 % [facility] Comment: Interpretive Data Percent cell count reference ranges are not reported, since discordance with absolute values may lead to misinterpretation of CBC data. Current Interpretive Data was last revised on 2018. Testing performed by: [address] [address] Blood 12/08/2024 12:0 9 PM SHUTTLE FITTING SUPERVISOR 12/08/2024 12:11 PM SHUTTLE FITTING SUPERVISOR Kevin Lerner MD LAB BLOOD ORDERABLES Fin al Result Performing Organization Address [facility] de Phone Number [address] [address] * Thyroid Function [place] (12/08/2024 12:09 PM SHUTTLE FITTING SUPERVISOR) Pathologist [facility] TSH 1.33 0.30 - 4.20 mcIUnit/mL Comment:Testing performed by : [address] [address] Blood 12/08/2024 12:0 9 PM SHUTTLE FITTING SUPERVISOR 12/08/2024 1:43 PM SHUTTLE FITTING SUPERVISOR Kevin Lerner MD LAB BLOOD ORDERABLES Fin al Result Performing Organization Address [facility] Phone Number [address] [address] * (ABNORMAL) CBC with auto differential (12/08/2024 12:09 PM SHUTTLE FITTING SUPERVISOR) Pathologist [facility] WBC 26.5(H) 3.8 - 9.9 K/cumm Comment:Testing performed by : [address] [address] Hgb 13.9 13.0 - 17.5 g/dL ELVIN Comment:Testing performed by : [address] [address] Hct 40.1 38.9 - 50.3 % ELVIN Comment:Testing performed by : [address] [address] Plt 151 150 - 400 K/cumm ELVIN HATCH Comment:Testing performed by : [address] [address] MPV 9.6 9.1 - 12.3 fL ELVIN HATCH Comment:Testing performed by : [address] [address] RBC 4.26(L) 4.30 - 5.80 M/cumm ELVIN HATCH Comment:Testing performed by : [facility], [address] [place] [address]., [address] MCV 94.1 81.3 - 96.4 fL ELVIN HATCH Comment:Testing performed by : [address] [address] MCH 32.6 27.1 - 33.3 pg ELVIN HATCH Comment:Testing performed by : [address] [address] MCHC 34.7 32.3 - 35.7 g/dL ELVIN HATCH Comment:Testing performed by : [address] [address] RDW CV 15.1(H) 11.1 - 14.9 % ELVIN Comment:Testing performed by : [address] [address] RDW SD 52.3(H) 35.7 - 48.1 fL ELVIN Comment:Testing performed by : [address] [address] NRBC abs 0.00 0.00 - 0.01 K/cumm ELVIN Comment:Testing performed by : [address] [address] Blood 12/08/2024 12:0 9 PM SHUTTLE FITTING SUPERVISOR 12/08/2024 12:11 PM SHUTTLE FITTING SUPERVISOR us Kevin Lerner MD LAB BLOOD ORDERABLES Fin al Result ELVIN [address] [facility] Department of Laboratories [place], [place] [id number] * Manual Differential (12/08/2024 12:09 PM SHUTTLE FITTING SUPERVISOR) Differential Auto Comment:Testing performed by : [address] [address] RBC morphology Consistent with RBC Indicies ELVIN HATCH Comment:Testing performed by : [address] [address] Platelet estimate Adequate ELVIN HATCH Comment:Testing performed by : [address] [place]., [address] Blood 12/08/2024 12:0 9 PM SHUTTLE FITTING SUPERVISOR 12/08/2024 12:11 PM SHUTTLE FITTING SUPERVISOR us Kevin Lerner MD LAB BLOOD ORDERABLES Fin al Result [facility] [address] [facility] Department [place] [address] * (ABNORMAL) Comprehensive metabolic panel (12/08/2024 12:09 PM SHUTTLE FITTING SUPERVISOR) Sodium 135 135 - 145 mmol/L Comment:Testing performed by : [address] [address] Potassium, pl 4.3 3.3 - 4.9 mmol/L ELVIN Comment:Testing performed by : [address] [address] Chloride 98 97 - 110 mmol/L ELVIN Comment:Testing performed by : [address] [address] CO2 25 22 - 32 mmol/L ELVIN Comment:Testing performed by : [address] [address] Anion gap 12 2 - 15 mmol/L ELVIN Comment:Testing performed by : [address] [address] BUN 26(H) 6 - 25 mg/dL ELVIN Comment:Testing performed by : [address] [address] Creatinine 1.20 0.80 - 1.30 mg/dL ELVIN Comment:Testing performed by : [address] [address] Glucose 137 70 - 199 mg/dL ELVIN [...] was last revised 2022. Testing performed by: [address] [address] Calcium 10.3 8.5 - 10.3 mg/dL ELVIN Comment:Testing performed by : [address] [address] Bilirubin, total 0.4 0.1 - 1.2 mg/dL ELVIN Comment:Testing performed by : [address] [address] Protein, pl 7.0 6.5 - 8.5 g/dL ELVIN Comment:Testing performed by : [address] [address] Albumin 4.0 3.5 - 5.0 g/dL ELVIN Comment:Testing performed by : [address] [address] Alk phos 124 40 - 130 Units/L [facility]:Testing performed by : [address] [address] ALT 10 7 - 55 Units/L [facility] Comment:Testing performed by : [address] [address] AST 9(L) 10 - 50 Units/L [facility] Comment:Testing performed by : [address] [address] Blood 12/08/2024 12:0 9 PM SHUTTLE FITTING SUPERVISOR 12/08/2024 12:11 PM SHUTTLE FITTING SUPERVISOR us Kevinerica Lerner MD LAB BLOOD ORDERABLES Fin al Result ELVIN HATCH [address] [facility] Department [place] [address] * MRI Brain W WO Contrast (12/08/2024 11:36 AM SHUTTLE FITTING SUPERVISOR) Anatomical Region Laterality Modality Head and Neck N/A Magnetic Resonan ce 12/08/2024 12:1 5 PM SHUTTLE FITTING SUPERVISOR Narrative 12/08/2024 12:48 PM SHUTTLE FITTING SUPERVISOR EXAM DESCRIPTION: MRI BRAIN W WO CONTRAST [...] left lateral ventricle and 0.3 cm of tdqy-fc-zxmur midline shift. Smaller left occipital metastases including [...] of the left lateral ventricle with mild jrjr-cn-wutyl midline shift. 2. New multifocal infratentorial metastases. [...] with Dr. Kevin Lerner via telephone by id Dr. Benita Campbell on 12/08/2024 at 12:47 pm central standard time. THIS IS AN ELECTRONICALLY VERIFIED FINAL REPORT 12/08/2024 12:48 PM - Electronically signed by Rudy Campbell D.O. AP: FILOMENA Report ID: [id number] Reading Location: [place] [address] Procedure Note Rudy Campbell, DO - 12/08/2024 EXAM DESCRIPTION: MRI [...] left lateral ventricle and 0.3 cm of dyym-up-hvmsa midline shift. Smaller leftoccipital metastases including 1.3 [...] horn of the left lateral ventriclewith mild hzem-dt-vipic midline shift. 2. New multifocal infratentorial metastases. [...] discussed with Dr. Kevin Lerner viatelephone by id Dr. Benita Campbell on 12/08/2024 at 12:47 pm central standard time. THIS IS AN ELECTRONICALLY VERIFIED FINAL REPORT 12/08/2024 12:48 PM - Electronically signed by Rudy Campbell D.O. AP: AP Report ID: [id number] Reading Location: [place] [address] Kevin Lerner MD IMG MRI PROCEDURES Final Result * PET/CT FDG Skull to Thigh (11/29/2024 12:31 PM SHUTTLE FITTING SUPERVISOR) Anatomical Region Laterality Modality N/A Positron Emissio n Tomography (PET) 11/29/2024 2:43 PM SHUTTLE FITTING SUPERVISOR Impressions 11/29/2024 3:22 PM SHUTTLE FITTING SUPERVISOR 1. Progressive metastatic disease, with new hypermetabolic [...] and agrees with it. Electronically signed by: DO Lidia Holman 11/29/2024 3:22 PM SHUTTLE FITTING SUPERVISOR EXAMINATION: TUMOR FDG-PET/CT IMAGING DATE OF STUDY: 11/29/2024 SCANNER: [facility] RADIOPHARMACEUTICAL: 17.9 mCi F-18 Fluorodeoxyglucose (FDG) i.v. [...] obtained. The study was interpreted on the [employer] workstation. The mean liver SUV (reported for senior quality manager purposes) is 2.6. The total scanned area [...] FDG-PET/CT IMAGING DATE OF STUDY: 11/29/2024 SCANNER: [facility] RADIOPHARMACEUTICAL: 17.9 mCi F-18 Fluorodeoxyglucose (FDG) i.v. [...] obtained. The study was interpreted on the [employer] workstation. The mean liver SUV (reported for senior quality manager purposes) is 2.6. The total scanned area [...] it. Electronically signed by: Lavell Valente DO us Kevin Lerner MD IMG PET PROCEDURES Final Result * POCT glucose (11/29/2024 11:03 AM SHUTTLE FITTING SUPERVISOR) [facility] Glucose, POC 146 70 - 199 mg/dL Comment: For Glucose values <35 mg/dl when Hematocrit is >60 mg/dl,the test may not accurately detect significant hypoglycemia,and testing in the Laboratory should be considered if clinically indicated. Blood 11/29/2024 11:0 3 AM SHUTTLE FITTING SUPERVISOR 11/29/2024 11:03 AM SHUTTLE FITTING SUPERVISOR Kevin Lerner MD LAB POCT ORDERABLES - DE VICE Final Result ELVIN [facility] [address] Department [place] [address] * eGFR (11/24/2024 11:10 AM SHUTTLE FITTING SUPERVISOR) [facility] eGFR 76 >=60 mL/min/1. 73 m2 Comment: [...] was last reviewed 2021. Testing performed by: [address] [address] Blood 11/24/2024 11:1 0 AM SHUTTLE FITTING SUPERVISOR 11/24/2024 11:12 AM SHUTTLE FITTING SUPERVISOR us Kevinerica Lerner MD LAB BLOOD ORDERABLES [facility] al Result ELVIN [address] Department [place] [address] * (ABNORMAL) Differential, auto (11/24/2024 11:10 AM SHUTTLE FITTING SUPERVISOR) Neutrophil abs 15.7(H) 1.5 - 6.5 K/cumm Comment:Testing performed by : [address] [address] Imm gran abs 0.6(H) 0.0 - 0.1 K/cumm ELVIN Comment:Testing performed by : [address] [address] Lymphocyte abs 1.2 0.8 - 3.3 K/cumm ELVIN Comment:Testing performed by : [address] [address] Monocyte abs 1.1(H) 0.2 - 0.8 K/cumm ELVIN Comment:Testing performed by : [address] [address] Eosinophil abs 0.1 0.0 - 0.5 K/cumm ELVIN Comment:Testing performed by : [address] [address] Basophil abs 0.1 0.0 - 0.1 K/cumm ELVIN Comment:Testing performed by : [address] [address] Neutrophil pct 83.9 % [facility] Comment: Interpretive Data Percent cell count reference ranges are not reported, since discordance with absolute values may lead to misinterpretation of CBC data. Current Interpretive Data was last revised on 2018. Testing performed by: [address] [address] Imm gran pct 3.1 % ELVIN Comment: Interpretive Data Percent cell count reference ranges are not reported, since discordance with absolute values may lead to misinterpretation of CBC data. Current Interpretive Data was last revised on 2018. Testing performed by: [address] [address] Lymphocyte pct 6.2 % [facility] Comment: Interpretive Data Percent cell count reference ranges are not reported, since discordance with absolute values may lead to misinterpretation of CBC data. Current Interpretive Data was last revised on 2018. Testing performed by: [address] [address] Monocyte pct 5.6 % ELVIN Comment: Interpretive Data Percent cell count reference ranges are not reported, since discordance with absolute values may lead to misinterpretation of CBC data. Current Interpretive Data was last revised on 2018. Testing performed by: [address] [address] Eosinophil pct 0.6 % [facility] Comment: Interpretive Data Percent cell count reference ranges are not reported, since discordance with absolute values may lead to misinterpretation of CBC data. Current Interpretive Data was last revised on 2018. Testing performed by: [address] [address] Basophil pct 0.6 % [facility] Comment: Interpretive Data Percent cell count reference ranges are not reported, since discordance with absolute values may lead to misinterpretation of CBC data. Current Interpretive Data was last revised on 2018. Testing performed by: [address] [address] Blood 11/24/2024 11:1 0 AM SHUTTLE FITTING SUPERVISOR 11/24/2024 11:12 AM SHUTTLE FITTING SUPERVISOR us Kevin Lerner MD LAB BLOOD ORDERABLES Fin al Result [facility] [address] [facility] Department [place] [address] * (ABNORMAL) CBC with auto differential (11/24/2024 11:10 AM SHUTTLE FITTING SUPERVISOR) WBC 18.7(H) 3.8 - 9.9 K/cumm Comment:Testing performed by : [address] [address] Hgb 12.5(L) 13.0 - 17.5 g/dL ELVIN Comment:Testing performed by : [address] [address] Hct 36.9(L) 38.9 - 50.3 % ELVIN Comment:Testing performed by : [address] [address] Plt 165 150 - 400 K/cumm ELVIN Comment:Testing performed by : [address] [address] MPV 10.0 9.1 - 12.3 fL ELVIN Comment:Testing performed by : [address] [address] RBC 3.96(L) 4.30 - 5.80 M/cumm ELVIN Comment:Testing performed by : [address] [address] MCV 93.2 81.3 - 96.4 fL ELVIN Comment:Testing performed by : [address] [address] MCH 31.6 27.1 - 33.3 pg ELVIN HATCH Comment:Testing performed by : [address] [address] MCHC 33.9 32.3 - 35.7 g/dL ELVIN HATCH Comment:Testing performed by : [address] [address] RDW CV 14.5 11.1 - 14.9 % ELVIN HATCH Comment:Testing performed by : [address] [address] RDW SD 50.1(H) 35.7 - 48.1 fL ELVIN Comment:Testing performed by : [address] [address] NRBC abs 0.00 0.00 - 0.01 K/cumm ELVIN Comment:Testing performed by : [address], [address] Blood 11/24/2024 11:1 0 AM SHUTTLE FITTING SUPERVISOR 11/24/2024 11:12 AM SHUTTLE FITTING SUPERVISOR Kevin Lerner MD LAB BLOOD ORDERABLES Fin al Result Performing Organization Address City/[facility]/ZIP Co de Phone Number [address] [employer] [place] [employer] [place] [address] * TSH (11/24/2024 11:10 AM SHUTTLE FITTING SUPERVISOR) Pathologist [facility] Thyroid Stimulating Hormone 1.66 0.30 - 4.20 mcIUnit/mL Comment:Testing performed by : [address], [address] Blood 11/24/2024 11:1 0 AM SHUTTLE FITTING SUPERVISOR 11/24/2024 11:47 AM SHUTTLE FITTING SUPERVISOR Kevin Lerner MD LAB BLOOD ORDERABLES Fin al Result Performing Organization Address City/[facility]/ZIP Co de Phone Number [address] [place] [employer] [place] [address] * (ABNORMAL) Comprehensive metabolic panel (11/24/2024 11:10 AM SHUTTLE FITTING SUPERVISOR) Sodium 134(L) 135 - 145 mmol/L Comment:Testing performed by : [address], [address] Potassium, pl 4.0 3.3 - 4.9 mmol/L ELVIN Comment:Testing performed by : [address] [address] Chloride 97 97 - 110 mmol/L ELVIN Comment:Testing performed by : [address], [place]., [address] CO2 25 22 - 32 mmol/L ELVIN Comment:Testing performed by : [address] [address] Anion gap 12 2 - 15 mmol/L ELVIN Comment:Testing performed by : [address], [place]., [address] BUN 20 6 - 25 mg/dL ELVIN Comment:Testing performed by : [address] [address] Creatinine 1.00 0.80 - 1.30 mg/dL ELVIN Comment:Testing performed by : [address] [address] Glucose 122 70 - 199 mg/dL [facility] Comment: Interpretive Data Fasting glucose >/= [...] was last revised 2022. Testing performed by: [address] [address] Calcium 10.2 8.5 - 10.3 mg/dL [facility] Comment:Testing performed by : [address] [address] Bilirubin, total 0.3 0.1 - 1.2 mg/dL ELVIN Comment:Testing performed by : [address] [address] Protein, pl 6.8 6.5 - 8.5 g/dL ELVIN Comment:Testing performed by : [address] [address] Albumin 3.6 3.5 - 5.0 g/dL ELVIN HATCH Comment:Testing performed by : [address] [address] Alk phos 128 40 - 130 Units/L ELVIN HATCH Comment:Testing performed by : [address] [address] ALT 8 7 - 55 Units/L ELVIN Comment:Testing performed by : [address] [address] AST 11 10 - 50 Units/L ELVIN Comment:Testing performed by : [address] [address] Blood 11/24/2024 11:1 0 AM SHUTTLE FITTING SUPERVISOR 11/24/2024 11:12 AM SHUTTLE FITTING SUPERVISOR us Kevin Lerner MD LAB BLOOD ORDERABLES Fin al Result ELVIN [address] [facility] Department [place] [address] * CT chest without contrast (11/17/2024 1:06 PM SHUTTLE FITTING SUPERVISOR) Anatomical Region Laterality Modality Body N/A Computed Tomogra phy 11/19/2024 8:10 AM SHUTTLE FITTING SUPERVISOR Narrative 11/19/2024 8:27 AM SHUTTLE FITTING SUPERVISOR EXAM DESCRIPTION: CT CHEST WO CONTRAST REASON [...] 8:27 AM - Electronically signed by Balwinder RAM T: Report ID: [id number] Reading Location: [place] [address] Procedure Note Balwinder Sam MD - 11/19/2024 [...] Balwinder Sam M.D. MZ T: Report ID: [id number] Reading Location: [id number] us Kevin Lerner MD IMG CT PROCEDURES Final Result from Last 3 Months Insurance MEDICARE [employer] SENIOR [facility] MEDICARE AETNA SENIOR SUPPLEMENT Advance Directives For more information, please contact: [phone] * Full Code (Latest Code Status on File) Date Activated Date Inactivated Comments 07/15/2024 7:47 AM 07/16/2024 4:44 AM Care Teams Automatic Grinding Machine Operator Relationship Specialty Start Date End Date Braeden Valdovinos DO [address] [facility] [address] [place] [address] PCP - General Internal Medicine 07/06/24 Carlyle Rawls MD [address] [facility] [place] [address] Referring Physician Dermatology 12/06/22 Jake Payne MD [address] [address] Radiation Oncologist Radiation Oncology 11/27/23 Braeden Valdovinos DO [address] [facility] [address] [place] [address] Referring Physician Internal Medicine 07/01/24 Kevin Lerner MD [address] [place] [address] MEDICAL ONCOLOGY, [facility] [address] [place] [address] Internal Medicine 01/26/25
[2025-02-11 23:27] LABS: Partial Thromboplastin Time 25.2 Seconds (22.3-36.8)
--- NOTE | 2025-02-11 23:27 | ED_ITS ---
HPI - General Adult General Chief complaint: Chest Pain Stated complaint: DIARRHEA, WEAKNESS, AMS, STEMI Time Seen by Provider: 02/11/25 23:06 History of Present Illness HPI narrative: This is an 79-year-old male history lung cancer with brain metastasis treated with radiation chemotherapy presenting for weakness. Patient has been weak the last several days. He has been unable have a bowel movement for 3 days, but today had a large bowel movement diarrhea. He then lost consciousness. EMS was called and he was brought to the hospital. EMS activated the patient has a STEMI. Patient is currently denying fevers chills chest pain difficulty breathing or abdominal pain. Related Data Home Medications ?Medication ?Instructions ?Recorded ?Confirmed ?Last Taken ?Type acyclovir 5 % topical cream 1 applic topical ONCE 06/18/21 12/12/24 Unknown History (Zovirax) diphenhydramine HCl 25 mg capsule 25 mg PO QHS 06/18/21 12/12/24 Unknown History (Benadryl) naphazoline 0.025 %-pheniramine 2 drp EACH EYE QID PRN 06/18/21 12/12/24 Unknown History 0.3 % eye drops (Naphcon-A) propylene glycol [Systane Balance] ophthalmic (eye) 06/18/21 12/12/24 Unknown History triamcinolone acetonide [Nasacort] intranasal 06/18/21 12/12/24 Unknown History memantine 5 mg tablet (Namenda) 5 mg PO QAM 12/10/24 12/12/24 Unknown History Allergies Allergy/AdvReac Type Severity Reaction Status Date / Time Penicillins Allergy Unknown dizzy, itch Verified 02/12/25 04:42 omeprazole AdvReac Severe hemoptysis Verified 02/12/25 04:42 benazepril AdvReac Intermediate Abdominal Verified 02/12/25 04:42 Pain benzonatate AdvReac Intermediate Dizziness Verified 02/12/25 04:42 cefuroxime AdvReac Intermediate Dizziness Verified 02/12/25 04:42 indomethacin AdvReac Intermediate Hives Verified 02/12/25 04:42 lisinopril AdvReac Intermediate Cough Verified 02/12/25 04:42 moxifloxacin (From Avelox) AdvReac Intermediate Cough Verified 02/12/25 04:42 terazosin AdvReac Intermediate Abdominal Verified 02/12/25 04:42 Pain PMFSH Past Medical History Medical History Impaired glucose tolerance Gout Hypercholesterolemia Hypertension Surgical History Surgical History History of total bilateral knee replacement Family History Family History Mother Family history of lymphoma Father Sibling No problems noted. Social History Social History (Updated 12/10/24 @ 14:02 by LILIAN Ayers) Smoking status: Never smoker Second hand tobacco smoke exposure: No Alcohol intake: never Substance use: never Substance use type: does not use Do You Feel Safe in your Home?: Yes Lack of Transportation: No Lack of Food: Never True Current Housing: I Have Housing Concerned About Future Housing: No Difficulty Paying Gas/Electric Bills: No Difficulty Paying for Meds: No Currently Unemployed: No Education: Master's Degree or Higher Difficulty w/ Childcare or Family Care: No Living arrangements: with family Occupation/Education: retired 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 EYES: EOMI, NOSE: Atraumatic NECK: Trachea midline RESPIRATORY: Tachypneic, scattered rhonchi in the right lobe CARDIOVASCULAR: Irregularly irregular with tachycardia, no peripheral edema ABDOMINAL: Soft nontender no guarding rebound MUSCULOSKELETAl: No obvious deformities NEURO: Alert. Moving 4/4 extremities SKIN:: Warm, dry. Normal color PSYCHIATRIC: Normal affect Course Vital Signs Vital signs: Vital Signs Temperature 98.3 F 02/11/25 22:31 Pulse Rate 137 H 02/11/25 22:31 Respiratory Rate 32 H 02/11/25 22:31 Blood Pressure 97/55 L 02/11/25 22:31 Pulse Oximetry 99 02/11/25 22:31 Oxygen Delivery Room Air 02/11/25 22:31 Temperature 98.9 F 02/12/25 05:00 Pulse Rate 93 02/12/25 05:00 Respiratory Rate 21 H 02/12/25 05:00 Blood Pressure 115/62 02/12/25 05:00 Pulse Oximetry 95 02/12/25 05:00 Oxygen Delivery Room Air 02/11/25 23:00 Medical Decision Making [facility] Narrative Medical decision making narrative: -Course: 79-year-old male with history of metastatic lung cancer presenting after syncopal event. On arrival he was tachycardic and hypotensive. EKG showed AFib with RVR. He received 30 cc kg normal saline and converted back to normal sinus rhythm. Blood pressure did not improve and he was started on nor epi. Patient was placed on cefepime doxy and vancomycin while awaiting completion of his workup. CTA chest and pelvis and CT brain showed right-sided pneumonia. Additionally he has metastatic cancer to the brain with some basic genic edema although his normal mental state exam at this time. Patient is DNR DNI and does not wish any invasive or her work measures. He is okay with fluids and antibiotics. Laboratory studies significant for white count of 66 K. initial lactic 8.6 which cleared 2.1 with fluid resuscitation. Kidney function at baseline. Slight elevations in troponin which are likely demand ischemia. Patient does not have chest pain ischemic changes on EKG. He is not interested in getting a cardiac catheterization regardless. [facility] was contacted and he was triaged to [facility]. He was accepted by Dr. Kumari. Patient will be transferred for further management. Vital Signs Vital Signs: Vital Signs Temperature 98.3 F 02/11/25 22:31 Pulse Rate 137 H 02/11/25 22:31 Respiratory Rate 32 H 02/11/25 22:31 Blood Pressure 97/55 L 02/11/25 22:31 Pulse Oximetry 99 02/11/25 22:31 Oxygen Delivery Room Air 02/11/25 22:31 Temperature 98.9 F 02/12/25 05:00 Pulse Rate 93 02/12/25 05:00 Respiratory Rate 21 H 02/12/25 05:00 Blood Pressure 115/62 02/12/25 05:00 Pulse Oximetry 95 02/12/25 05:00 Oxygen Delivery Room Air 02/11/25 23:00 Lab Data 02/11/25 22:46 02/12/25 04:06 Labs: Lab Results 02/11/25 02/11/25 02/11/25 Range/Units 22:46 23:04 23:24 WBC 66.8 H* (4.5-10.0) K/mm3 RBC 3.42 L (4.6-6.20) M/mm3 Hgb 11.1 L (14.0-18.0) g/dL Hct 36.0 L (42.0-52.0) % MCV 105.3 H (80-100) fl MCH 32.5 (26-34) pg MCHC 30.8 L (32-36) g/dl RDW 16.7 H (11.5-14.5) % Plt Count 176 (150-375) k/mm3 MPV 10.2 (7.4-10.4) fl Immature Gran % (Auto) Not Reportable Neut % (Auto) Not Reportable Lymph % (Auto) Not Reportable Woodruff % (Auto) Not Reportable Eos % (Auto) Not Reportable Baso % (Auto) Not Reportable Lymph # (Auto) Not Reportable Woodruff # (Auto) Not Reportable Eos # (Auto) Not Reportable Baso # (Auto) Not Reportable Abs Immat Gran (auto) Not Reportable Absolute Neuts (auto) Not Reportable Absolute Nucleated RBC Not Reportable Total Counted 100 Neutrophils % (Manual) 73 (46-73) % Band Neutrophils % 7 H (0-6) % Lymphocytes % (Manual) 12.0 L (18-44) % Monocytes % (Manual) 6 (3-9) % Basophils % (Manual) 1 (0-1) % Myelocytes % 1 % Nucleated RBC % Not Reportable Abs Neuts (Manual) 53.44 H (1.3-6.7) K/mm3 Abs Lymphs (Manual) 8.01 H (1.1-4.5) K/mm3 Abs Monocytes (Manual) 4.00 H (0.1-0.90) K/mm3 Abs Basophils (Manual) 0.66 H (0.0-0.1) K/mm3 Atypical Lymphocytes Present Smudge Cells Present Platelet Estimate Adequate (Adequate) Large Platelets Present Anisocytosis 1+ Macrocytosis 1+ (NORMAL) Ovalocytes 1+ [place] Cells 1+ Schistocytes None seen PT 15.5 H (11.1-14.7) Seconds INR 1.2 APTT 25.2 (22.3-36.8) Seconds Sodium 134 L (137-145) mmol/L Potassium 3.9 (3.4-5.0) mmol/L Chloride 97 L (98-107) mmol/L Carbon Dioxide 12 L (22-30) mmol/L Anion Gap 25 H (4-12) mmol/L BUN 27 H (9-20) mg/dL Creatinine 1.24 (0.7-1.3) mg/dL Estim Creat Clear Calc 43 ml/min Estimated GFR 56 L (59 - ) Glucose 319 H (65-110) mg/dL Lactic Acid (0.7-2.0) mmol/L Calcium 9.6 (8.4-10.2) mg/dL Total Bilirubin 0.5 (0.2-1.3) mg/dL AST 18 (17-59) U/L ALT 29 (6-50) U/L Alkaline Phosphatase 178 H (38-126) U/L Troponin I < 0.012 (0.000-0.034) ng/mL Total Protein 6.0 L (6.3-8.2) g/dL Albumin 3.5 (3.5-5.1) g/dL Lipase 63 (23-300) U/L Urine Color (Yellow) Urine Appearance (Clear) Urine pH (5.0-9.0) Ur Specific Ranger (1.001-1.035) Urine Protein (Negative) mg/dL Urine Glucose (UA) (Negative) mg/dL Urine Ketones (Negative) mg/dL Ur Blood (Man) (Negative) Urine Nitrate (Negative) Urine Bilirubin (Negative) Urine Urobilinogen (<2.0) mg/dL Leukocyte Esterase Rfl (Negative) RAJIV/UL Urine RBC (0-2) /hpf Urine WBC (0-3) /hpf Ur Squamous Epith Cells (Few) /hpf Urine Bacteria /hpf Urine Casts Nasal MRSA (PCR) (NOT DETECTE) Influenza A (RT-PCR) Negative (Negative) Influenza B (RT-PCR) Negative (Negative) RSV (RT-PCR) Negative (Negative) SARS-CoV-2 RNA (RT-PCR) Negative (Negative) 02/11/25 02/12/25 02/12/25 Range/Units 23:52 00:41 01:36 WBC (4.5-10.0) K/mm3 RBC (4.6-6.20) M/mm3 Hgb (14.0-18.0) g/dL Hct (42.0-52.0) % MCV (80-100) fl MCH (26-34) pg MCHC (32-36) g/dl RDW (11.5-14.5) % Plt Count (150-375) k/mm3 MPV (7.4-10.4) fl Immature Gran % (Auto) Neut % (Auto) Lymph % (Auto) Woodruff % (Auto) Eos % (Auto) Baso % (Auto) Lymph # (Auto) [place]ruff # (Auto) Eos # (Auto) Baso # (Auto) Abs Immat Gran (auto) Absolute Neuts (auto) Absolute Nucleated RBC Total Counted Neutrophils % (Manual) (46-73) % Band Neutrophils % (0-6) % Lymphocytes % (Manual) (18-44) % Monocytes % (Manual) (3-9) % Basophils % (Manual) (0-1) % Myelocytes % % Nucleated RBC % Abs Neuts (Manual) (1.3-6.7) K/mm3 Abs Lymphs (Manual) (1.1-4.5) K/mm3 Abs Monocytes (Manual) (0.1-0.90) K/mm3 Abs Basophils (Manual) (0.0-0.1) K/mm3 Atypical Lymphocytes Smudge Cells Platelet Estimate (Adequate) Large Platelets Anisocytosis Macrocytosis (NORMAL) Ovalocytes Joey Cells Schistocytes PT (11.1-14.7) Seconds INR APTT (22.3-36.8) Seconds Sodium (137-145) mmol/L Potassium (3.4-5.0) mmol/L Chloride (98-107) mmol/L Carbon Dioxide (22-30) mmol/L Anion Gap (4-12) mmol/L BUN (9-20) mg/dL Creatinine (0.7-1.3) mg/dL Estim Creat Clear Calc ml/min Estimated GFR (59 - ) Glucose (65-110) mg/dL Lactic Acid 8.6 H* (0.7-2.0) mmol/L Calcium (8.4-10.2) mg/dL Total Bilirubin (0.2-1.3) mg/dL AST (17-59) U/L ALT (6-50) U/L Alkaline Phosphatase (38-126) U/L Troponin I 0.044 H* D (0.000-0.034) ng/mL Total Protein (6.3-8.2) g/dL Albumin (3.5-5.1) g/dL Lipase (23-300) U/L Urine Color (Yellow) Urine Appearance (Clear) Urine pH (5.0-9.0) Ur Specific Ranger (1.001-1.035) Urine Protein (Negative) mg/dL Urine Glucose (UA) (Negative) mg/dL Urine Ketones (Negative) mg/dL Ur Blood (Man) (Negative) Urine Nitrate (Negative) Urine Bilirubin (Negative) Urine Urobilinogen (<2.0) mg/dL Leukocyte Esterase Rfl (Negative) RAJIV/UL Urine RBC (0-2) /hpf Urine WBC (0-3) /hpf Ur Squamous Epith Cells (Few) /hpf Urine Bacteria /hpf Urine Casts Nasal MRSA (PCR) Not detected (NOT DETECTE) Influenza A (RT-PCR) (Negative) Influenza B (RT-PCR) (Negative) RSV (RT-PCR) (Negative) SARS-CoV-2 RNA (RT-PCR) (Negative) 02/12/25 02/12/25 Range/Units 04:06 04:13 WBC (4.5-10.0) K/mm3 RBC (4.6-6.20) M/mm3 Hgb (14.0-18.0) g/dL Hct (42.0-52.0) % MCV (80-100) fl MCH (26-34) pg MCHC (32-36) g/dl RDW (11.5-14.5) % Plt Count (150-375) k/mm3 MPV (7.4-10.4) fl Immature Gran % (Auto) Neut % (Auto) Lymph % (Auto) Woodruff % (Auto) Eos % (Auto) Baso % (Auto) Lymph # (Auto) Woodruff # (Auto) Eos # (Auto) Baso # (Auto) Abs Immat Gran (auto) Absolute Neuts (auto) Absolute Nucleated RBC Total Counted Neutrophils % (Manual) (46-73) % Band Neutrophils % (0-6) % Lymphocytes % (Manual) (18-44) % Monocytes % (Manual) (3-9) % Basophils % (Manual) (0-1) % Myelocytes % % Nucleated RBC % Abs Neuts (Manual) (1.3-6.7) K/mm3 Abs Lymphs (Manual) (1.1-4.5) K/mm3 Abs Monocytes (Manual) (0.1-0.90) K/mm3 Abs Basophils (Manual) (0.0-0.1) K/mm3 Atypical Lymphocytes Smudge Cells Platelet Estimate (Adequate) Large Platelets Anisocytosis Macrocytosis (NORMAL) Ovalocytes Joey Cells Schistocytes PT (11.1-14.7) Seconds INR APTT (22.3-36.8) Seconds Sodium (137-145) mmol/L Potassium (3.4-5.0) mmol/L Chloride (98-107) mmol/L Carbon Dioxide (22-30) mmol/L Anion Gap (4-12) mmol/L BUN (9-20) mg/dL Creatinine 0.81 (0.7-1.3) mg/dL Estim Creat Clear Calc 64 ml/min Estimated GFR > 60 (59 - ) Glucose (65-110) mg/dL Lactic Acid 2.1 H (0.7-2.0) mmol/L Calcium (8.4-10.2) mg/dL Total Bilirubin (0.2-1.3) mg/dL AST (17-59) U/L ALT (6-50) U/L Alkaline Phosphatase (38-126) U/L Troponin I 0.059 H* D (0.000-0.034) ng/mL Total Protein (6.3-8.2) g/dL Albumin (3.5-5.1) g/dL Lipase (23-300) U/L Urine Color Yellow (Yellow) Urine Appearance Clear (Clear) Urine pH 5.0 (5.0-9.0) Ur Specific Ranger > 1.045 H (1.001-1.035) Urine Protein Trace (Negative) mg/dL Urine Glucose (UA) Negative (Negative) mg/dL Urine Ketones Negative (Negative) mg/dL Ur Blood (Man) Negative (Negative) Urine Nitrate Negative (Negative) Urine Bilirubin Negative (Negative) Urine Urobilinogen 0.2 (<2.0) mg/dL Leukocyte Esterase Rfl Negative (Negative) RAJIV/UL Urine RBC 0-2 (0-2) /hpf Urine WBC 0-5 (0-3) /hpf Ur Squamous Epith Cells None seen (Few) /hpf Urine Bacteria None seen /hpf Urine Casts 0-2 Nasal MRSA (PCR) (NOT DETECTE) Influenza A (RT-PCR) (Negative) Influenza B (RT-PCR) (Negative) RSV (RT-PCR) (Negative) SARS-CoV-2 RNA (RT-PCR) (Negative) Critical Care Time Critical Care Time Critical Care Time: Yes Total Critical Care Time: 35 Discharge Plan Discharge Clinical Impression: Pneumonia, Lung cancer, Septic shock Patient Disposition: Acute Care Hospital Condition: Stable Patient Language: Spanish Prescriptions: No Action triamcinolone acetonide [Nasacort] intranasal acyclovir [Zovirax] 5 % cream 1 applic topical ONCE diphenhydramine HCl [Benadryl] 25 mg capsule 25 mg PO QHS propylene glycol [Systane Balance] ophthalmic (eye) Naphcon-A 0.025-0.3 % drops 2 drp EACH EYE QID PRN memantine [Namenda] 5 mg tablet 5 mg PO QAM famotidine [Pepcid] 20 mg tablet 20 mg PO DAILY Qty: 90 0RF albuterol sulfate 90 mcg/actuation HFA aerosol inhaler 1 puff INHALATION Q4H PRN (Reason: shortness of breath or wheezing) Qty: 8.5 1RF triamterene-hydrochlorothiazid 37.5-25 mg capsule See Rx Instructions .ROUTE .COMPLEX Qty: 90 2RF Dose Instruction: TAKE 1 CAPSULE BY MOUTH DAILY Rx Instructions: TAKE 1 CAPSULE BY MOUTH DAILY rosuvastatin 20 mg tablet 10 mg PO DAILY Qty: 90 1RF allopurinol 100 mg tablet See Rx Instructions .ROUTE .COMPLEX Qty: 180 1RF Dose Instruction: TAKE 2 TABLETS BY MOUTH DAILY Rx Instructions: TAKE 2 TABLETS BY MOUTH DAILY Follow-up/Referrals: UNKNOWN,DOCTOR [Primary Care Provider] -
--- NOTE | 2025-02-11 23:41 | PC.NURSE ---
phlebotomy contacted to collect blood cultures difficult stick
--- NOTE | 2025-02-11 23:51 | PC.NURSE ---
phlebotomy obtained 2 sets of blood cultures using [employer] devices. will start abx now.
[2025-02-11] MEDS: CEFEPIME 2 GM/NS 50 ML 2 GM/50 ML BAG IVPB (23:52)
[2025-02-12] VITALS (44 sets, daily range): BP systolic 80–124; BP diastolic 42–76; PULSE 89–103; RESP 17–26; TEMP 36.8–37.3; O2SAT 94–100
[2025-02-12 00:04] LABS: Influenza A QL RT-PCR Negative (Negative); Influenza B QL RT-PCR Negative (Negative); RSV RNA, RT-PCR Negative (Negative); SARS-CoV-2 RNA PCR Negative (Negative)
[2025-02-12] MEDS: CRASH CART LOCKS 1 EACH XX (00:05)
--- NOTE | 2025-02-12 00:17 | PC.NURSE ---
vrbo - tylenol 1gm po x 1 dose per edp zych for rt leg pain
[2025-02-12] MEDS: ACETAMINOPHEN 500 MG TABLET 1000 MG PO (00:42)
[2025-02-12] MEDS: VANCOMYCIN 1,250 MG/NS 250 ML 1,250 MG/250 ML BAG 166.67 MG IVPB (00:45)
[2025-02-12 00:47] LABS: Lactic Acid Reflex 8.6 mmol/L (0.7-2.0)
--- NOTE | 2025-02-12 01:38 | PC.NURSE ---
Pt placed in hospital bed at this time. 3 hour ekg/troponin collected. Pt now resting comfortably in ed room 1.
[2025-02-12 01:56] LABS: Reflex Lactic Acid Yes or No Add Lactic
[2025-02-12 02:02] LABS: MRSA (PCR) NOT DETECTED (NOT DETECTE)
--- NOTE | 2025-02-12 02:05 | PC.NURSE ---
Per GAVINO Berkowitz/Damon please access port. Port accessed by this RN.
[2025-02-12] MEDS: NOREPINEPHRINE 8 MG/D5W 250 ML 8 MG/250 ML BAG 9.38 MG IV CONT (02:16)
--- NOTE | 2025-02-12 02:21 | PC.NURSE ---
at bedside - updated on current plan of care.
[2025-02-12 02:27] LABS: Troponin I 0.044 ng/mL (0.000-0.034)
[2025-02-12] MEDS: VANCOMYCIN 1,000 MG/NS 250 ML 1,000 MG/250 ML BAG 250 MG IVPB (02:32)
--- NOTE | 2025-02-12 02:36 | PC.NURSE ---
[facility] [phone]
[2025-02-12] MEDS: DOXYCYCLINE 100 MG/NS 100 ML 100 MG/100 ML BAG IVPB (03:37)
--- NOTE | 2025-02-12 04:00 | ECG_ITS ---
Test Date: 2025-02-12 01:40:20 Measurements Intervals [place] Rate: 99 P: 39 NM: 162 QRS: 26 QRSD: 134 T: 18 QT: 340 QTc: 437 Interpretive Statements SINUS RHYTHM WITH ATRIAL COUPLET AND FREQUENT SUPRAVENTRICULAR PREMATURE COMPLEXES RIGHT BUNDLE BRANCH BLOCK ABNORMAL ECG Compared to ECG 02/11/2025 22:35:51 HEART RATE HAS DECREASED Electronically Signed On 02-12-2025 07:03:20 CDT by Dex Dinh D.O.
[2025-02-12 04:27] LABS: Add Urine Microscopic? YES; Appearance Urine Clear (Clear); Bacteria Urine None Seen /hpf; Bilirubin Urine Negative (Negative); Blood Urine Negative (Negative); Color Urine Yellow (Yellow); Glucose Urine UA Negative (Negative); Ketones Urine Negative (Negative); Leukocyte Esterase Ur Negative LEU/UL (Negative); Nitrate Urine Negative (Negative); Non Pathogenic Casts 0-2; Protein Urine Trace mg/dL (Negative); RBC Urine 0-2 /hpf (0-2); Specific Grav Ur > 1.045 (1.001-1.035); Squamous Epithelial Cell Urine None Seen /hpf (Few); Urobilinogen Urine 0.2 mg/dL (<2.0); WBC Urine 0-5 /hpf (0-3)
[2025-02-12 04:36] LABS: Estimated CRCL calculation 64 ml/min; Estimated Glomerular Filt Rate > 60; Lactic Acid 2.1 mmol/L (0.7-2.0)
[2025-02-12 04:49] LABS: Troponin I 0.059 ng/mL (0.000-0.034)
--- NOTE | 2025-02-12 06:21 | PC.NURSE ---
[facility] triage nurse given nurse to nurse. RN Will call back with ICU Bed @ [facility]
--- NOTE | 2025-02-12 06:45 | PC.NURSE ---
Ayse with [facility] transfer center Pt is accepted by Dr Kuamri [facility] [address] [place] [address] Nurse to Nurse Report [phone]
[2025-02-12] MEDS: CEFEPIME 2 GM/NS 50 ML 2 GM/50 ML BAG IVPB (06:47)
--- NOTE | 2025-02-12 06:53 | PC.NURSE ---
carlin dale updated on pt acceptance and status.
--- NOTE | 2025-02-12 07:17 | PC.NURSE ---
RN Report to ROBERTA Antunez @ [facility]
--- NOTE | 2025-02-12 07:17 | PC.NURSE ---
Report to day nurse Jessie Gasca RN
--- NOTE | 2025-02-12 07:38 | PC.NURSE ---
Assumed care of pt from ROBERTA Wheat. Pt resting on stretcher, no visible distress at this time. Pt denies pain, denies discomfort. pt updated on plan of care: accepted to [facility], awaiting transport which is expected between 830 - 9 this morning. pt verbalized understanding
--- NOTE | 2025-02-12 07:44 | ECG_ITS ---
Test Date: 2025-02-12 04:04:40 Measurements Intervals [place] Rate: 93 P: 45 DC: 155 QRS: 22 QRSD: 141 T: 18 QT: 349 QTc: 436 Interpretive Statements SINUS RHYTHM WITH OCCASIONAL SUPRAVENTRICULAR PREMATURE COMPLEXES RIGHT BUNDLE BRANCH BLOCK ABNORMAL ECG Compared to ECG 02/12/2025 01:40:20 No significant changes Electronically Signed On 02-12-2025 08:16:16 CDT by Dex Dinh D.O.
== END 2025-02-12 09:27 | disposition short-term general hospital (02) ==
PROVIDERS: Emergency Provider Emergency Medicine
DX: J18.9 Pneumonia, unspecified organism (principal); R65.21 Severe sepsis with septic shock; C34.90 Malignant neoplasm of unspecified part of unspecified bronchus or lung; C79.31 Secondary malignant neoplasm of brain; I10 Essential (primary) hypertension; E78.00 Pure hypercholesterolemia, unspecified; Z96.653 Presence of artificial knee joint, bilateral; Z20.822 Contact with and (suspected) exposure to COVID-19
CPT/HCPCS: 36415; 70450; 71045; 71275; 74174; 80053; 81001; 82565; 83605; 83690; 84484; 85025; 85610; 85730; 87040; 87637; 87641; 93005; 96361; 96365; 96366; 96367; 99285; A9270; J0692; J3370; J7030; Q9967